=== PATIENT | female | born 2000 | race Caucasian/White ===

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

== ENCOUNTER → 2023-01-30 | Outpatient (CLI) | payer OTHER, SELFPAY ==
[2023-01-30 16:59] LABS: Hematocrit 36.3 % (37-47); Hemoglobin 11.5 g/dL (12.0-15.0); Mean Corp Hgb Conc 31.7 g/dL (32-36); Mean Corpuscular Hgb 27.1 pg (27.0-32.0); Mean Corpuscular Volume 85.4 fL (81-99); Platelet Count 363 K/mm3 (150-450); RBC Distribution Width CV 13.9 % (11.6-14.6); RBC Distribution Width SD 42.8 fl (35.1-43.9); Red Blood Count 4.25 M/mm3 (4.2-5.4); White Blood Count 11.4 K/mm3 (4.4-11.0)
[2023-01-30 17:18] LABS: Prothrombin Time (Protime)PT. 12.9 SECONDS (11.7-14.9)
[2023-01-30 17:19] LABS: Partial Thromboplast Time 27.6 Seconds (24.1-36.2)
== END | disposition home or self-care (01) ==
LOC: LAB 16:28
PROVIDERS: PCP Pediatrics; Referring Provider Otolaryngology; Visit Provider Otolaryngology
DX: Z01.818 Encounter for other preprocedural examination (principal)
CPT/HCPCS: 36415; 85027; 85610; 85730

== ENCOUNTER 2023-05-01 14:01 | Emergency (ER) | payer OTHER, SELFPAY ==
[2023-05-01 14:02] VITALS: BP 131/88; PULSE 81; RESP 16; TEMP 36.2; O2SAT 100
[2023-05-01 14:04] VITALS: BMI 34.7
--- NOTE | 2023-05-01 14:39 | EX.ED.VIS.PS ---
HPI HPI - Psych History of Present Illness Chief Complaint: Suicidal Narrative Narrative: 22-year-old female with history of depression and anxiety with suicidal thoughts and a plan to kill herself by overdosing on her anxiety medication. She states that she has been having more cutting behavior recently. She states she has been cutting on her right shoulder. She went to see her counselor her today and reported all these findings and she was sent to the ER. Patient states that life in general is stressful for her but she is recently having trouble with work and a break-up within the month with her significant other. No history of attempts. She does have history of SI in the past. [facility] Medical History ADHD Anxiety Depressive disorder Physical exam, pre-employment Home Medications sertraline 100 mg tablet 150 mg PO Q24H 05/01/23 [History Last Taken Unknown] Allergy/AdvReac Type Severity Reaction Status Date / Time Penicillins Allergy Rash Verified 05/01/23 14:02 Social History Smoking Status: Never smoker ROS ROS ED Constitutional Constitutional ED: Denies chills, fever(s) or sweats Eyes Eyes: Denies blurry vision or change in vision ENT ENT ED: Denies ear pain or sore throat Cardiovascular Cardiovascular: Denies chest pain, palpitations or racing heartbeat Respiratory/Chest Respiratory/Chest: Denies cough, dyspnea or sputum Gastrointestinal Gastrointestinal: Denies abdominal pain, constipation, diarrhea, nausea or vomiting Genitourinary Genitourinary ED: Denies dysuria, hematuria or urinary frequency Musculoskeletal Musculoskeletal: Denies arthralgias, myalgias or neck pain Integumentary Denies abscess, Abrasions or rash Neurologic Neurologic: Denies headache(s), paresthesias or weakness Psychiatric Psychiatric: Reports anxiety, depression, suicidal ideation and suicidal thoughts Endocrine Endocrinology: Denies polydipsia or polyuria EXAM Physical Exam Const Vital Signs: 05/01/23 14:02 05/01/23 15:01 05/01/23 18:00 Temperature 97.1 F L Temperature Source Temporal Pulse Rate 81 61 Respiratory Rate 16 18 18 Blood Pressure 131/88 H 144/87 H Blood Pressure Mean 102 106 Pulse Ox 100 99 Oxygen Delivery Method Room Air Room Air Room Air Positive well nourished General Appearance ED: RANJITH SHEN Reports moist mucous membranes normocephalic and atraumatic Eyes PERRL and EOMs intact bilaterally Resp normal respiratory effort and clear to auscultation bilaterally Auscultation: Negative for rales, rhonchi or wheezes Cardio Rate: regular rate Rhythm: regular rhythm Neuro oriented x3 and CN's II-XII intact bilaterally Psych cooperative, speech normal and activity/motor behavior normal Appearance: grossly normal Attitude: calm Activity / Motor Behavior: appropriate eye contact Speech: normal speech Thought Content: suicidality Attention / Concentration: attention grossly intact and concentration grossly intact Memory / Cognition: memory grossly intact Insight: poor MDM MDM MDM Narrative Medical decision making narrative: Patient presenting with suicidal ideation and a plan to kill herself by overdosing on her anxiety medications. Appropriate screening lab work will be obtained. rocket test fire worker will be consulted. Patient will likely benefit from inpatient care. Screening blood work was normal. CBC and BMP unremarkable. Serum hCG is negative. Drug screen positive for cannabinoids. COVID swab came back positive so a COVID PCR was sent and is also positive. The patient is completely asymptomatic of this. This does complicate her placement. Social work did see the patient and felt that she was not able to safety plan her. Given this we will look for other resources. Patient is medically clear from my standpoint. Patient will be signed out to the incoming ED physician for monitoring until placement can be achieved. Impression: 1. Suicidal ideation with plan 2. COVID-19 Lab Data Attestation: I reviewed the patient's lab results. Labs: Laboratory Results - last 24 hr 05/01/23 05/01/23 15:13 16:10 WBC 10.6 RBC 4.52 Hgb 12.2 Hct 39.6 MCV 87.6 MCH 27.0 MCHC 30.8 L RDW Std Deviation 45.1 H RDW Coeff of Seth 13.9 Plt Count 368 MPV 10.2 Immature Gran % (Auto) 0.400 Neut % (Auto) 69.6 Lymph % (Auto) 19.2 [place] % (Auto) 6.8 Eos % (Auto) 3.7 Baso % (Auto) 0.3 Absolute Neuts (auto) 7.4 Absolute Lymphs (auto) 2.04 Nucleated RBC % 0 Sodium 137 Potassium 3.9 Chloride 106 Carbon Dioxide 28.0 Anion Gap 3 L BUN 18 Creatinine 0.88 Est GFR (MDRD) Af Amer 104 Est GFR (MDRD) Non-Af 86 BUN/Creatinine Ratio 20.4 H Glucose 92 Calcium 9.1 Serum , Qual NEGATIVE Urine Opiates Screen NEGATIVE Urine Methadone Screen NEGATIVE Ur Barbiturates Screen NEGATIVE Ur Phencyclidine Scrn NEGATIVE Ur Amphetamines Screen NEGATIVE MDMA (Ecstasy) Screen NEGATIVE U Benzodiazepines Scrn NEGATIVE Urine Cocaine Screen NEGATIVE U Cannabinoids Screen POSITIVE H Ur Drug Screen Comment Ethyl Alcohol < 3.0 Discharge Plan Triage Chief Complaint: Suicidal ED Provider: Tiburcio Vasquez Dx/Rx/DC Orders Prescriptions: No Action sertraline 100 mg tablet 150 mg PO Q24H Patient Comments: TAKE 1 TABLET BY MOUTH ONCE DAILY FOR 90 DAYS TAKE WITH 50 MG DOSE FOR TOTAL OF 150MG DAILY Primary Care Provider: Zaki Lewis Referrals: Angela Hinton DO [Non-Staff] -
[2023-05-01 15:01] VITALS: RESP 18
[2023-05-01 15:21] LABS: Absolute Lymphocyte Count 2.04 X10^3/uL (0.83-4.51); Absolute Neutrophil Count 7.4 X10^3/uL (2.0-7.7); Basophil# 0.03 X10^3/uL; Basophil% 0.3 % (0-1); Eosinophil# 0.39 X10^3/uL; Eosinophils% 3.7 % (0-5); Hematocrit 39.6 % (37-47); Hemoglobin 12.2 g/dL (12.0-15.0); Lymphocyte # 2.04 X10^3/ul (0.83-4.51); Lymphocyte % 19.2 % (19-41); Mean Corp Hgb Conc 30.8 g/dL (32-36); Mean Corpuscular Volume 87.6 fL (81-99); Mean Platelet Vol. 10.2 fl (6.2-12.0); Monocyte# 0.72 X10^3/uL; Monocyte% 6.8 % (0-10); NRBC Flagged by Analyzer 0 % (0-5); Neutrophil # 7.38 X10^3/uL (2.7-7.7); Neutrophil % 69.6 % (47-70); Platelet Count 368 K/mm3 (150-450); RBC Distribution Width CV 13.9 % (11.6-14.6); RBC Distribution Width SD 45.1 fl (35.1-43.9); Red Blood Count 4.52 M/mm3 (4.2-5.4); White Blood Count 10.6 K/mm3 (4.4-11.0)
[2023-05-01 15:33] LABS: Anion Gap 3 (5-15); BUN 18 mg/dL (7-18); BUN/Creat Ratio 20.4 RATIO (10-20); Calcium,Total 9.1 mg/dL (8.5-10.1); Chloride 106 mmol/L (98-107); Creatinine, Serum 0.88 mg/dL (0.55-1.02); EST Glomerular Filtration Rate 86 mL/min (>60); Est Glom Filt Rate - Afr Amer 104 mL/min (>60); Glucose 92 mg/dL (74-106); Potassium 3.9 mmol/L (3.5-5.1); Sodium Level 137 mmol/L (136-145)
[2023-05-01 15:51] LABS: Alcohol, Blood (Medical)-Serum < 3.0 mg/dL
[2023-05-01 15:53] LABS: Internal QC Validated? YES +Cl - CLEAR BKGD; Pregnancy, Serum, hCG Quali. NEGATIVE Negative; Record Kit Lot#, Serum Preg. 667200
[2023-05-01 16:35] LABS: Amphetamine Urine VISTA NEGATIVE (<1000 ng/mL); Barbiturate Urine VISTA NEGATIVE (< 200 ng/mL); Benzodiazepine Urine VISTA NEGATIVE (< 200 ng/mL); Cocaine Urine VISTA NEGATIVE (< 300 ng/mL); Ecstacy Urine VISTA NEGATIVE (< 500 ng/mL); Methadone Urine VISTA NEGATIVE (< 300 ng/mL); PCP Urine VISTA NEGATIVE (< 25 ng/mL); THC Urine VISTA POSITIVE (< 50 ng/mL); Vista UDS pH Range 6
[2023-05-01 18:00] VITALS: BP 144/87; PULSE 61; RESP 18; O2SAT 99
--- NOTE | 2023-05-01 19:18 | CM.ED ---
Social Work Psychiatric Assessment Reason for consult: SI Informant(s): Patient, medical record Chief Complaint: SI with a plan, sent by mental health counselor Marital/Social History/Living Situation: Patient is a 22-year-old single female that resides her mother, mother?s and 18-year-old sister. Pt prefers her/they pronouns and their sexual orientation is homosexual. 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 Pt reports the desire for autism testing due to symptoms. Pt reports taking 150 mg Sertraline. Pt denies any prior psych placements. Pt sees a counselor, Khadijah at [facility]. Pt has history of self-harm in the form of cutting. Substance Abuse Hx: Pt denies any significant history of substance abuse but does report occasional marijuana use. Daily nicotine use. Abuse Issues/Trauma HX: Pt denies any abuse history. Pt reports the loss of her grandfather and spreading his ashes as traumatic. Risk to Self/Others: Pt reports SI which has been constant for the past week. Pt reports thoughts everyday all day regarding killing herself and methods. Pt reports plan to overdose on medication. Pt denies HI. Triggers/Stressors/Risk factors: Pt reports they recently had a breakup with their girlfriend. Pt has history of cutting. Coping Skills: Family, walking Support/Resources: Mother, counselor, friends Mental Status Exam: ?Pt is oriented x4 with good memory Appearance/General Behavior/Mood/Affect: Pt presents as depressed with flat affect. Pt reports fluctuating moods with sadness, anxious and irritable. Communication Pattern/Thought process: Pt communicates effectively. Pt does not present as having AVH or delusions. General Intellectual Functioning:?? Average Judgment/Insight: Pt presents with good judgment and insight Assessment: Patient presents at ED after mental health counselor sent them for SI. Patient reports SI constantly in the past week. Pt reports thinking about suicide all day and methods to use. Pt reports plan to overdose on medications. On a scale of 1-10 with 10 being pt is definitely going to harm self, patient reports an 8. Pt denies HI and AVH. Pt denies any previous attempts or hospitalizations. Pt reports anxiety, difficulty sleeping and fluctuating moods. Pt reports using weed occasionally and nicotine daily. Pt reports recent breakup with her girlfriend which pt reports as a trigger. Pt reports self-harm in the form of cutting, last done on Sunday. Pt reports superficial cut to their shoulder. Pt reports feeling unsafe with self at this time. Patient has tested positive for Covid but is asymptomatic. Pt denies known exposure to covid but works at a daycare. Patient has otherwise been medically cleared. Upon assessment, patient would benefit from inpatient psychiatric placement due to being a danger to self with SI/plan/intent. ED physician is in agreement with placement. Plan:. Patient to be referred for psychiatric placement for stabilization. Inés Watson CASH GRAIN FARMER, BENCH ASSEMBLER OPERATOR
--- NOTE | 2023-05-01 19:53 | CM.ED ---
Social Work Patient is asymptomatic but covid positive. SW called crisis to consult whether they have placed covid positive psychiatric patients recently. Crisis reports no recent covid positive placements. SW did call Violeta lovell, Juan Ramon Hayes and Gauri CLAYTON who all denied based on covid status. SW is not able to safety plan patient at this time and placement is still indicated, ED physician is in agreement and aware of status. SW faxed referral packet to crisis due to shift ending and pt still not referred. Plan: Crisis to continue seeking placement for covid positive placement. Inés Watson SENIOR MATERIALS ANALYST, FOOD COUNTER WORKER
--- NOTE | 2023-05-01 21:57 | ED.RN ---
[facility] calls and declines patient due to covid status.
[2023-05-01 22:00] VITALS: BP 132/65; PULSE 68; RESP 12; O2SAT 100
--- NOTE | 2023-05-01 22:34 | ED.RN ---
[facility] calls and declines patient based on covid status.
[2023-05-02 02:00] VITALS: BP 110/61; PULSE 72; RESP 12; O2SAT 100
[2023-05-02 06:00] VITALS: BP 121/74; PULSE 84; RESP 16; O2SAT 99
--- NOTE | 2023-05-02 09:10 | NURSING ---
[facility], [facility] AND CHARANR[facility] ACCEPTED, BUT AFTER 5 DAYS FROM BEING DIAGNOSED
[2023-05-02] MEDS: Sertraline 50 MG Tablet 150 MG PO (10:24)
[2023-05-02 14:00] VITALS: BP 132/77; PULSE 74; RESP 16; O2SAT 95
--- NOTE | 2023-05-02 14:34 | NURSING ---
[facility], CRISIS, CALLED. THE COLD ROLLING MACHINE SETTER WILL BE HERE TO SEE PATIENT AND DO AN ASSESSMENT
--- NOTE | 2023-05-02 14:34 | CM.ED ---
Social Work Spoke with Gordon at [facility] Crisis department regarding need for a 24 hour reassessment/update assessment. Gordon reports [facility] will be over to do this, but cannot give an exact time, due to the nature of community crisis events currently happening. Updated Gordon to patient's 24 hour timeframe of [id number]. -PADMA Zheng
[2023-05-02 18:00] VITALS: RESP 16
[2023-05-02 22:00] VITALS: RESP 15
[2023-05-03 02:00] VITALS: RESP 15
[2023-05-03 06:00] VITALS: RESP 15
[2023-05-03] MEDS: Sertraline 50 MG Tablet 150 MG PO (10:38)
[2023-05-03 15:26] VITALS: BP 128/79; PULSE 88; RESP 17; O2SAT 99
--- NOTE | 2023-05-03 18:20 | CM.ED ---
Social Work Patient awaiting psych placement in ED with positive covid status. Pt last re-evaluated by crisis 24 hours ago. SW in to complete 24 hour re-evaluation of patient for psychiatric needs. SW completed initial assessment on 05/01/2023, refer to this for full psychiatric evaluation. SW introduced self and role to patient. Pt's mom present in room and left for patient privacy. Pt present with positive mood and affect congruent to mood. Patient status largely the same as initial assessment. SW explained process and that psychiatric unit has reported they could possibly accept 5 days post-positive covid result. Pt remains asymptomatic and denies any medical concerns/symptoms. SW reviewed safety plan and possible services and aftercare to pair with safety plan. Pt indicated they have a safety plan with counselor and did not feel safe even with safety plan in place prior to ED visit. SW reviewed safety concerns and patient still indicates SI with plan. Pt is denying current intent and does report feeling more safe being at the hospital, knowing they are unable to harm themselves due to monitoring. On a scale of 1-10 with 10 being intent/plan to harm self, patient indicated a 6 which is a decrease from initial response which was an 8. Pt reports it is better but that they feel it is because they are at the ED to get help and does not have access to harm themselves. SW willing to develop safety plan if appropriate and patient is agreeable. Pt reports, I would not feel safe with myself at home. Pt is declining safety plan at this time. SW encouraged patient to notify staff if at any time they feel like they could be adequately safety planned and SW could review possible safety plan. Plan: SW to follow up tomorrow at 24 hour point or sooner if indicated. SW will continue to work on placement. Inés Watson PUMP ERECTOR, BUDGET ANALYST
--- NOTE | 2023-05-03 20:28 | CM.ED ---
Social Work SW called several facilities to find out if a new covid test is done, would that lengthen the 5 days post-screening period. No facilities could say exactly but did report they could review with management in the AM. [facility] indicated they could have physician review patient information tomorrow in anticipation of 5-day status. [facility] also reports they do not have enough space today to close off an area for covid but it could also be reviewed tomorrow. SW will follow up with [facility] and other facilities tomorrow regarding 5 day policy. Inés Watson BAND DIRECTOR, CARTON MAKING MACHINIST
[2023-05-03 20:37] VITALS: BP 149/74; PULSE 64; RESP 16; TEMP 36.6; O2SAT 98
[2023-05-04] VITALS (7 sets, daily range): BP systolic 124–140; BP diastolic 62–76; PULSE 62–80; RESP 14–16; O2SAT 96–98
[2023-05-04] MEDS: Sertraline 50 MG Tablet 150 MG PO (11:17)
--- NOTE | 2023-05-04 15:04 | CM.ED ---
Addendum entered by Inés Watson 05/04/23 20:04: YOUNG additionally spoke with [facility] liaison and intake regarding patient and they will not review until 5 days post-positive. [facility] also will not review until 5-10 days post positive screen. Inés DIEZ, VIDEO AND SOUND RECORDER Original Note: Social Work SW faxed referral to [facility] and [facility] for review. Both called and stated doctor would not review for placement until 5 day jarvis and to refax after it has been 5 days post-covid testing. [facility] advised to refax tomorrow and that case had been reviewed with management whether early review could be considered. Inés DIEZ, VIDEO AND SOUND RECORDER
--- NOTE | 2023-05-04 19:25 | CM.ED ---
Social Work Patient awaiting psych placement in ED with positive covid status. Pt last re-evaluated by SW 24 hours ago. SW in to complete 24 hour re-evaluation of patient for psychiatric needs. SW completed initial assessment on 05/01/2023, refer to this for full psychiatric evaluation. SW introduced self and role to patient. Pt's mom present in room and left for patient privacy. Pt present with positive mood and affect congruent to mood. Patient status largely the same as initial assessment. SW explained process and that psychiatric unit has reported they could possibly accept 5 days post-positive covid result. Pt remains asymptomatic and denies any medical concerns/symptoms. SW reviewed safety planning once again with patient. Pt again indicated safety plan with counselor already in place and did not feel safe. SW reviewed safety concerns and patient still indicates SI with plan. On a scale of 1-10 with 10 being intent/plan to harm self, patient indicated a 6 this re-eval and during previous re-eval but in initial psych assessment was an 8. Pt reports feeling like they need a medication review as they have been on sertraline for several months with continual increases in dosage and now at 150mg without improvement. Pt reports trying Wellbutrin in the past which gave patient the energy to . Pt reports more energy but increased suicidality with Wellbutrin. Pt feels fearful of any medication changes without close monitoring due to intense suicidal thoughts with previous med change and already feeling suicidal. SW willing to develop safety plan if appropriate and patient is agreeable due to patient's willingness to seek help when suicidal. Pt is declining safety plan at this time. SW encouraged patient to notify staff if at any time they feel like they could be adequately safety planned and SW could review possible safety plan. Plan: SW to follow up tomorrow at 24 hour point or sooner if indicated. SW will continue to work on placement. Inés Watson MERCHANT PATROLLER, HELPER METAL HANGING
[2023-05-05 09:00] VITALS: BP 126/78; PULSE 64; RESP 14; O2SAT 98
[2023-05-05] MEDS: Sertraline 50 MG Tablet 150 MG PO (11:52)
[2023-05-05 15:11] VITALS: BP 126/65; PULSE 62; RESP 16; O2SAT 99
--- NOTE | 2023-05-05 17:37 | CM.ED ---
Social Work Pt accepted to [facility] by Dr. Lassiter. Nurse to nurse [phone] and pink slip faxed. SW notified staff and patient. ETA 7:30 for transport. Inés Watson GLASS POLISHER, PRIMER BOXER
[2023-05-05 19:20] VITALS: BP 130/76; PULSE 64; RESP 14; TEMP 36.4; O2SAT 99
== END 2023-05-05 19:21 ==
PROVIDERS: Emergency Provider Student in an Organized Health Care Education/Training Program; PCP Student in an Organized Health Care Education/Training Program; Visit Provider Student in an Organized Health Care Education/Training Program
DX: U07.1 COVID-19 (principal); R45.851 Suicidal ideations; F41.9 Anxiety disorder, unspecified; F32.A Depression, unspecified; Z79.899 Other long term (current) drug therapy
CPT/HCPCS: 80048; 80307; 82077; 84703; 85025; 87635; 87811; 99285

== ENCOUNTER 2023-07-17 19:17 | Emergency (ER) | payer OTHER, SELFPAY ==
[2023-07-17 19:18] VITALS: BP 132/81; PULSE 87; RESP 16; TEMP 35.8; O2SAT 98; BMI 35.3
--- NOTE | 2023-07-17 19:56 | EX.ED.VIS.PS ---
HPI HPI - Psych History of Present Illness Chief Complaint: Suicidal Narrative Narrative: 22-year-old female past medical history of depression and anxiety, presents because she feels like she needs to be evaluated and sent to a psychiatric facility. Before April of last year, approximately 2 months ago, she had never been admitted. However, she states she went to [facility] because she was having suicidal ideation with plan to overdose. That is the reason why she presents to the emergency department today. She states that she follows up with the counseling center, and her counselor she has been having increasing depression. She states that she is having increasing thoughts of suicide by overdosing on her medications. Additionally, she states that she has been noncompliant with her medications recently because she just does not take them. She endorses mild insomnia, but no change in appetite. PFSH PFSH Medical History ADHD Anxiety Asthma Depressive disorder Physical exam, pre-employment Smoker Home Medications sertraline 100 mg tablet 150 mg PO Q24H 05/01/23 [History Last Taken Unknown] aripiprazole 10 mg tablet 5 mg PO DAILY 07/17/23 [History Last Taken Unknown] mirtazapine 15 mg tablet 15 mg PO .PRNQHS 07/17/23 [History Last Taken Unknown] Allergy/AdvReac Type Severity Reaction Status Date / Time Penicillins Allergy Rash Verified 07/17/23 19:18 Surgical History Hx of tonsillectomy Social History Smoking Status: Current every day smoker tobacco type: e-cigarettes ROS ROS ED ROS Narrative Constitutional: No fever, no chills. HEENT: No sore throat. No neck pain. No loss of vision. No rhinorrhea. Cardiovascular: No chest pain. No palpitations. No pedal edema. Respiratory: No cough, no shortness of breath. Abdominal: No abdominal pain. No nausea. No vomiting. Genitourinary: No dysuria. No hematuria. Musculoskeletal: No myalgias. No arthralgias. Neurologic: No headaches. No dizziness. No lightheadedness. Skin: No rash. No change in color. Psychiatric: Positive depression and anxiety. Thoughts of suicide and overdosing on psychiatric medications. EXAM Physical Exam Narrative Exam Narrative: Afebrile. Vital signs noted. HEENT: Normocephalic. Atraumatic. PERRL, EOMI. Neck soft and supple. No point tenderness or step off. Cardiovascular: Regular rate and rhythm. No murmurs, rubs, or gallops appreciated. Respiratory: No tachypnea. Lungs clear to auscultation bilaterally. Gastrointestinal: Abdomen soft, nontender, with normoactive bowel sounds. No rebound or guarding. Neurological: Awake. Alert. Nonfocal, nonlateralizing. Skin: No rash. Normal color. No pallor. Musculoskeletal: No pedal edema. Full range of motion extremities. Psychiatric: Positive suicidal ideation with plans on overdosing on medication. No active hallucinations. Mildly flat affect. Const Vital Signs: 07/17/23 19:18 07/17/23 21:17 Temperature 96.4 F L Temperature Source Temporal Pulse Rate 87 Respiratory Rate 16 16 Blood Pressure 132/81 H Blood Pressure Mean 98 Pulse Ox 98 97 Oxygen Delivery Method Room Air Room Air MDM MDM MDM Narrative Medical decision making narrative: Medical clearance labs will be obtained. Concern is for suicidal ideation with plan to overdose. I reviewed her laboratory work and she has slightly elevated white count of 13.0 which I think is nonspecific, hemoglobin stable at 11.4, hematocrit 35.8. Platelet count is normal at 343. CMP is significant for chloride of 108, but is otherwise unremarkable except for BUN of 22 and normal creatinine of 0.88. Glucose appropriately elevated at 95. Serum test is negative. Urine for drugs of abuse is negative and ethyl alcohol is negative. At this point in time, I feel she is medically cleared for evaluation by crisis. Should they require placement, any other additional test can be added on including EKG. Disposition is pending crisis evaluation. Patient is in stable condition. She will be signed out to the overnight physician as she awaits her evaluation and final disposition. History & Record Review Discussion w/independent historian: Patient Additional record(s) reviewed:: Prior ED visit Lab Data Attestation: I reviewed the patient's lab results. Labs: Laboratory Results - last 24 hr 07/17/23 07/17/23 19:56 20:16 WBC 13.0 H RBC 4.22 Hgb 11.4 L Hct 35.8 L MCV 84.8 MCH 27.0 MCHC 31.8 L RDW Std Deviation 42.8 RDW Coeff of Seth 13.9 Plt Count 343 MPV 10.3 Immature Gran % (Auto) 0.400 Neut % (Auto) 72.8 H Lymph % (Auto) 19.2 [place] % (Auto) 6.4 Eos % (Auto) 1.0 Baso % (Auto) 0.2 Absolute Neuts (auto) 9.5 H Absolute Lymphs (auto) 2.50 Nucleated RBC % 0 Sodium 137 Potassium 3.8 Chloride 108 H Carbon Dioxide 23.0 Anion Gap 6 BUN 22 H Creatinine 0.88 Estim Creat Clear Calc 133.87 Est GFR (MDRD) Af Amer 105 Est GFR (MDRD) Non-Af 87 BUN/Creatinine Ratio 25.1 H Glucose 95 Calcium 9.1 Total Bilirubin 0.20 AST 15 ALT 21 Alkaline Phosphatase 94 Total Protein 7.6 Albumin 3.6 Globulin 4.0 Albumin/Globulin Ratio 0.9 Serum , Qual NEGATIVE Urine Opiates Screen NEGATIVE Urine Methadone Screen NEGATIVE Ur Barbiturates Screen NEGATIVE Ur Phencyclidine Scrn NEGATIVE Ur Amphetamines Screen NEGATIVE MDMA (Ecstasy) Screen NEGATIVE U Benzodiazepines Scrn NEGATIVE Urine Cocaine Screen NEGATIVE U Cannabinoids Screen NEGATIVE Ur Drug Screen Comment Ethyl Alcohol < 3.0 Discharge Plan Triage Chief Complaint: Suicidal ED Provider: Armando Rodrigues Dx/Rx/DC Orders Clinical Impression: Suicidal ideation, Anxiety, Depression Prescriptions: No Action sertraline 100 mg tablet 150 mg PO Q24H Patient Comments: TAKE 1 TABLET BY MOUTH ONCE DAILY FOR 90 DAYS TAKE WITH 50 MG DOSE FOR TOTAL OF 150MG DAILY aripiprazole 10 mg tablet 5 mg PO DAILY Patient Comments: TAKE 1 TABLET BY MOUTH EVERY DAY mirtazapine 15 mg tablet 15 mg PO .[facility] Primary Care Provider: Zaki Lewis Referrals: Zaki Lewis DO [Primary Care Provider] -
[2023-07-17 20:27] LABS: Absolute Neutrophil Count 9.5 X10^3/uL (2.0-7.7); Basophil# 0.03 X10^3/uL; Basophil% 0.2 % (0-1); Eosinophil# 0.13 X10^3/uL; Hematocrit 35.8 % (37-47); Hemoglobin 11.4 g/dL (12.0-15.0); Lymphocyte % 19.2 % (19-41); Mean Corp Hgb Conc 31.8 g/dL (32-36); Mean Corpuscular Volume 84.8 fL (81-99); Mean Platelet Vol. 10.3 fl (6.2-12.0); Monocyte# 0.83 X10^3/uL; Monocyte% 6.4 % (0-10); NRBC Flagged by Analyzer 0 % (0-5); Neutrophil # 9.48 X10^3/uL (2.7-7.7); Neutrophil % 72.8 % (47-70); Platelet Count 343 K/mm3 (150-450); RBC Distribution Width CV 13.9 % (11.6-14.6); RBC Distribution Width SD 42.8 fl (35.1-43.9); Red Blood Count 4.22 M/mm3 (4.2-5.4)
--- OUTSIDE RECORDS SUMMARY | 2023-07-17 20:40 | XMS RPT_ITS | CCD ---
Author Name Unknown Address [email or web address] [place] [address] Organization [facility] Care Team Providers Care Manganese Heater Name Role Phone Unavailable Primary Care Provider UnavailMónica Chapa Primary Care Provid er LATASHA OLIVEROS, DR BURRELL Primary Care Physician [phone] Unavailable Primary Care Provider Ashanti Bustamante DO Primary Care Provider [phone] MALISSA VILLALTA, DR KELLI Downs Attending Mauri LEWIS DO, DR BURRELL Primary Care Unavailable LATASHA OLIVEROS, DR BURRELL Primary Care Unavailable IGOR FERRARI MD Attending Unavailable LATASHA OLIVEROS, DR BURRELL Attending Unavailable LATASHA OLIVEROS, DR BURRELL Primary Care Unavailable ASHANTI LEWIS Primary Care Unavailable MAYNOR CALLES Referring Unavailable ASHANTI LEWIS Primary Care Unavailable ASHANTI LEWIS Primary Care Unavailable ASHANTI LEWIS Primary Care Unavailable ASHANTI LEWIS Primary Care Unavailable ASHANTI LEWIS Primary Care Unavailable ASHANTI LEWIS Primary Care Unavailable ASHANTI LEWIS Primary Care Unavailable ROBIN AKUR Referring Unavailable Allergies Allergy Classification Reported Allergen(s) Allergy Type Date of Onset Reaction(s) Facility (14 sources) Dextromethorphan ; Translations: [DEXTROMETHORPHA N HBR] Drug Allergy 7 Swelling [facility] Work Phone: (8 sources) Penicillins; Translations: [penicillins] Drug Intolerance 5 Rash [facility] Work Phone: (10 sources) Penicillins Drug Intolerance 11-03-201 5 [facility] Work Phone: Medications Current Medications Medication Drug Class(es) Dates Sig (Normalized) Sig (Original) azithromycin 250 mg oral tablet (1 source) Macrolide Antimicrobial Start: 06-07-2022 End: 06-12-2022 take 2 tablets by mouth once daily, then take 1 tablet by mouth once daily azithromycin (ZITHROMAX) 250 mg tablet Take 2 tablets by mouth once daily for 1 day, THEN 1 tablet once daily for 4 days. 6 tablet 0 06/07/2022 06/12/2022 Active Completed/Discontinued Medications Medication Drug Class(es) Dates Sig (Normalized) Sig (Original) 24 hr amphetamine aspartate 6.25 mg / amphetamine sulfate 6.25 mg / dextroamphetamine saccharate 6.25 mg / dextroamphetamine sulfate 6.25 mg extended release oral capsule (20 sources) Central Nervous System Stimulant take 1 tablet by mouth once daily dextroamphetamine -amphetamine (ADDERALL) 5 mg tablet Take 5 mg by mouth once daily. 0 Active Problems Active Problems Problem Classification Problem Date Documented Date Episodic/Chronic Acute and chronic tonsillitis (4 sources) Hypertrophy of tonsils; Translations: [Chronic tonsillitis] Onset: 02-06-2023 08-01-2022 Chronic Anxiety disorders (8 sources) Obsessive-compulsive disorder; Translations: [Social phobia] 01-17-2022 Chronic Attention-deficit, conduct, and disruptive behavior disorders (4 sources) Attention deficit hyperactivity disorder 01-17-2022 Chronic Fluid and electrolyte disorders (1 source) Dehydration; Translations: [Dehydration] Onset: 02-13-2023 Episodic Inflammation; infection of eye (except that caused by tuberculosis or sexually transmitteddisease) (1 source) Acute conjunctivitis of bilateral eyes; Translations: [Unspecified acute conjunctivitis, bilateral] Episodic Mood disorders (2 sources) Recurrent major depressive episodes, moderate 08-01-2022 Chronic Noninfectious gastroenteritis (1 source) Gastroenteritis; Translations: [Noninfective gastroenteritis and colitis, unspecified] Episodic Other infections; including parasitic (2 sources) History of Lyme disease 12-12-2022 Episodic Other injuries and conditions due to external causes (1 source) Injury of left leg; Translations: [Unspecified injury of left lower leg, initial encounter] Episodic Other screening for suspected conditions (not mental disorders or infectious disease) (2 sources) Disease suspected 08-01-2022 Episodic Other upper respiratory infections (1 source) Bacterial sinusitis; Translations: [Chronic sinusitis, unspecified] Chronic Otitis media and related conditions (1 source) Acute left otitis media; Translations: [Otitis media, unspecified, left ear] Episodic Residual codes; unclassified (1 source) History of clinical finding in subject; Translations: [Personal history of other specified conditions] Episodic Spondylosis; intervertebral disc disorders; other back problems (3 sources) Backache; Translations: [Dorsalgia, unspecified] Episodic Suicide and intentional self-inflicted injury (2 sources) Suicidal thoughts 10-10-2022 Episodic Unclassified (2 sources) Add - dosing instruction fragment (qualifier value) 12-22-2014 Viral infection (2 sources) Viral disease; Translations: [Viral infection, unspecified] Episodic Past or Other Problems Problem Classification Problem Date Documented Da te Episodic/Chronic Other upper respiratory infections (7 sources) Upper respiratory infection; Translations: [Acute upper respiratory infection, unspecified] Onset: 05-30-2022 Episodic Results Test Name Value Interpretation Reference Range Facil ity Vital Signs Date Time Vital Sign Value Performing Clinician Facility 06-05-2023 18:06-0500 Body temperature 97.81 [degF] Maynor Calles APRN.CNP Work Phone: [facility] 06-05-2023 18:06-0500 Body weight 109.77 kg Maynor Calles APRN.CNP Work Phone: [facility] 06-05-2023 18:06-0500 Diastolic blood pressure 68 mm[Hg] Maynor Calles APRN.GUN STRIPER Work Phone: [facility] 06-05-2023 18:06-0500 Heart rate 96 /min Maynor Calles APRN.GUN STRIPER Work Phone: [facility] 06-05-2023 18:06-0500 Respiratory rate 16 /min Maynor Calles APRN.CNP Work Phone: [facility] 06-05-2023 18:06-0500 SaO2% (BldA) [Mass fraction] 100 % Maynor Calles APRN.GUN STRIPER Work Phone: [facility] 06-05-2023 18:06-0500 Systolic blood pressure 122 mm[Hg] Maynor Stevan VENEER JOINTER RETURNER.GUN STRIPER Work Phone: [facility] 02-13-2023 21:56-0400 Body temperature 98.06 [degF] DR KELLI LEONARDO MD [facility] 02-13-2023 21:56-0400 Heart rate 63 /min DR KELLI LEONARDO MD [facility] 02-13-2023 19:02-0400 Body temperature 98.06 [degF] DR KELLI LEONARDO MD [facility] 02-13-2023 19:02-0400 Diastolic Blood Pressure Non-Invasive [address] KELLI LEONARDO MD [facility] 02-13-2023 19:02-0400 Heart rate 84 /min DR KELLI LEONARDO MD [facility] 02-13-2023 19:02-0400 Respiratory rate 18 /min DR KELLI LEONARDO MD [facility] 02-13-2023 19:02-0400 Systolic Blood Pressure Non-Invasive [address] KELLI LEONARDO MD [facility] 12-07-2022 17:09-0400 Body temperature 97.81 [degF] Preethi Nagy V[employer]ER JOINTER RETURNER.[employer]IPER Work Phone: [facility] 12-07-2022 17:09-0400 Body weight 106.87 kg Preethi Nagy [employer]ER [employer]INTER RETURNER.[employer]ER Work Phone: [facility] 12-07-2022 17:09-0400 Diastolic blood pressure 68 mm[Hg] Preethi Nagy VENEER JOINTER RETURNER.[employer]IPER Work Phone: [facility] 12-07-2022 17:09-0400 Heart rate 90 /min Preethi Nagy [employer]INTER RETURNER.[employer]ER Work Phone: [facility] 12-07-2022 17:09-0400 Respiratory rate 18 /min Preethi Nagy V[employer]INTER RETURNER.[employer]ER Work Phone: [facility] 12-07-2022 17:09-0400 SaO2% (BldA) [Mass fraction] 98 % Preethi Nagy [employer]ER [employer]INTER RETURNER.[employer]ER Work Phone: [facility] 12-07-2022 17:09-0400 Systolic blood pressure 122 mm[Hg] Preethi Nagy VENEER JOINTER RETURNER.[employer]IPER Work Phone: [facility] 08-29-2022 19:11-0500 Body temperature 100.09 [degF] Maynor Stevan [employer] JOINTER RETURNER.[employer]ER Work Phone: [facility] 08-29-2022 19:11-0500 Body weight 104.78 kg Maynor Stevan [employer]INTER RETURNER.[employer]IPER Work Phone: [facility] 08-29-2022 19:11-0500 Diastolic blood pressure 72 mm[Hg] Maynor Stevan V[employer]ER JOINTER RETURNER.[employer]IPER Work Phone: [facility] 08-29-2022 19:11-0500 Heart rate 70 /min Maynor Stevan [employer]ER JOINTER RETURNER.[employer]ER Work Phone: [facility] 08-29-2022 19:11-0500 Respiratory rate 16 /min Maynor Stevan [employer]ER JOINTER RETURNER.[employer]ER Work Phone: [facility] 08-29-2022 19:11-0500 SaO2% (BldA) [Mass fraction] 100 % Maynor Stevan [employer]ER JOINTER RETURNER.[employer]ER Work Phone: [facility] 08-29-2022 19:11-0500 Systolic blood pressure 124 mm[Hg] Maynor Stevan VENEER JOINTER RETURNER.[employer]ER Work Phone: [facility] 06-21-2022 10:18-0500 Body temperature 98.1 [degF] Maynor Stevan V[employer]INTER RETURNER.[employer]ER Work Phone: [facility] 06-21-2022 10:18-0500 Body weight 101.52 kg Maynor Stevan [employer]ER JOINTER RETURNER.[employer]IPER Work Phone: [facility] 06-21-2022 10:18-0500 Diastolic blood pressure 80 mm[Hg] Maynor Stevan V[employer]ER JOINTER RETURNER.[employer]ER Work Phone: [facility] 06-21-2022 10:18-0500 Heart rate 90 /min Maynor Stevan V[employer]ER JOINTER RETURNER.[employer]ER Work Phone: [facility] 06-21-2022 10:18-0500 Respiratory rate 18 /min Maynor Stevan V[employer] JOINTER RETURNER.[employer]IPER Work Phone: [facility] 06-21-2022 10:18-0500 SaO2% (BldA) [Mass fraction] 97 % Maynor Stevan VENEER JOINTER RETURNER.[employer]IPER Work Phone: [facility] 06-21-2022 10:18-0500 Systolic blood pressure 112 mm[Hg] Maynor Stevan VENEER JOINTER RETURNER.GUN STRIPER Work Phone: [facility] 06-07-2022 19:19-0500 Body temperature 97.7 [degF] Preethi Nagy VENEER JOINTER RETURNER.[employer]IPER Work Phone: [facility] 06-07-2022 19:19-0500 Body weight 103.06 kg Preethi Nagy VENEER JOINTER RETURNER.[employer]ER Work Phone: [facility] 06-07-2022 19:19-0500 Diastolic blood pressure 82 mm[Hg] Preethi Nagy VENEER JOINTER RETURNER.[employer]IPER Work Phone: [facility] 06-07-2022 19:19-0500 Heart rate 80 /min Preethi Nagy V[employer]ER JOINTER RETURNER.G[employer]IPER Work Phone: [facility] 06-07-2022 19:19-0500 Respiratory rate 21 /min Preethi Nagy VENEER JOINTER RETURNER.G[employer] STRIPER Work Phone: [facility] 06-07-2022 19:19-0500 SaO2% (BldA) [Mass fraction] 97 % Preethi Nagy V[employer]ER JOINTER RETURNER.G[employer]IPER Work Phone: [facility] 06-07-2022 19:19-0500 Systolic blood pressure 128 mm[Hg] Preethi Nagy VENEER JOINTER RETURNER.GUN STRIPER Work Phone: [facility] 05-11-2022 18:20-0500 Body temperature 97 [degF] Preethi Nagy VENEER JOINTER RETURNER.[employer]IPER Work Phone: [facility] 05-11-2022 18:20-0500 Body weight 101.97 kg Preethi Nagy VENEER JOINTER RETURNER.[employer]ER Work Phone: [facility] 05-11-2022 18:20-0500 Diastolic blood pressure 80 mm[Hg] Preethi Nagy VENEER JOINTER RETURNER.G[employer]IPER Work Phone: [facility] 05-11-2022 18:20-0500 Heart rate 98 /min Preethi Nagy VENEER JOINTER RETURNER.G[employer] STRIPER Work Phone: [facility] 05-11-2022 18:20-0500 Respiratory rate 16 /min Preethi Nagy VENEER JOINTER RETURNER.G[employer]IPER Work Phone: [facility] 05-11-2022 18:20-0500 SaO2% (BldA) [Mass fraction] 100 % Preethi Nagy VENEER JOINTER RETURNER.G[employer]IPER Work Phone: [facility] 05-11-2022 18:20-0500 Systolic blood pressure 124 mm[Hg] Preethi Nagy VENEER JOINTER RETURNER.GUN STRIPER Work Phone: [facility] 05-05-2022 16:33-0500 Body temperature 98.71 [degF] Luli Praisler-Wood VENEER JOINTER RETURNER.GUN STRIPER Work Phone: [facility] 05-05-2022 16:33-0500 Body weight 103.6 kg Llui Praisler-Wood VENEER JOINTER RETURNER.GUN [employer]IPER Work Phone: [facility] 05-05-2022 16:33-0500 Diastolic blood pressure 74 mm[Hg] Luli Praisler-Wood VENEER JOINTER RETURNER.GUN STRIPER Work Phone: [facility] 05-05-2022 16:33-0500 Heart rate 103 /min Luli Praisler-Wood VENEER JOINTER RETURNER.GUN [employer]IPER Work Phone: [facility] 05-05-2022 16:33-0500 Respiratory rate 16 /min Luli Kincaid-Wood VENEER JOINTER RETURNER.GUN STRIPER Work Phone: [facility] 05-05-2022 16:33-0500 SaO2% (BldA) [Mass fraction] 97 % Luli Kincaid-Wood VENEER JOINTER RETURNER.GUN [employer]IPER Work Phone: [facility] 05-05-2022 16:33-0500 Systolic blood pressure 116 mm[Hg] Luli Almazanler-Wood VENEER JOINTER RETURNER.GUN [employer]IPER Work Phone: [facility] 03-06-2022 18:21-0400 Body temperature 98.4 [degF] Darius Miles VENEER JOINTER RETURNER.GUN [employer]IPER Work Phone: [facility] 03-06-2022 18:21-0400 Body weight 103.96 kg Darius Miles VENEER JOINTER RETURNER.G[employer]IPER Work Phone: [facility] 03-06-2022 18:21-0400 Diastolic blood pressure 78 mm[Hg] Darius Pendlebury VENEER JOINTER RETURNER.GUN [employer]IPER Work Phone: [facility] 03-06-2022 18:21-0400 Heart rate 83 /min Darius Miles VENEER JOINTER RETURNER.G[employer]IPER Work Phone: [facility] 03-06-2022 18:21-0400 Respiratory rate 21 /min Darius Annalebury VENEER JOINTER RETURNER.GUN [employer]IPER Work Phone: [facility] 03-06-2022 18:21-0400 SaO2% (BldA) [Mass fraction] 98 % Darius Castilloledick VENEER JOINTER RETURNER.GUN [employer]IPER Work Phone: [facility] 03-06-2022 18:21-0400 Systolic blood pressure 122 mm[Hg] Darius Pendlebury VENEER JOINTER RETURNER.GUN STRIPER Work Phone: [facility] 01-10-2022 11:36-0400 Body temperature 97.39 [degF] Maynor Calles VENEER JOINTER RETURNER.[employer]ER Work Phone: [facility] 01-10-2022 11:36-0400 Body weight 101.88 kg Maynor Stevan [employer]ER JOINTER RETURNER.[employer]IPER Work Phone: [facility] 01-10-2022 11:36-0400 Diastolic blood pressure 72 mm[Hg] Maynor Stevan VENEER JOINTER RETURNER.G[employer]IPER Work Phone: [facility] 01-10-2022 11:36-0400 Heart rate 105 /min Maynor Stevan VENEER JOINTER RETURNER.[employer]ER Work Phone: [facility] 01-10-2022 11:36-0400 Respiratory rate 18 /min Maynor Stevan VENEER JOINTER RETURNER.G[employer]ER Work Phone: [facility] 01-10-2022 11:36-0400 SaO2% (BldA) [Mass fraction] 97 % Maynor Stevan VENEER JOINTER RETURNER.G[employer]IPER Work Phone: [facility] 01-10-2022 11:36-0400 Systolic blood pressure 110 mm[Hg] Maynor Stevan VENEER JOINTER RETURNER.G[employer]IPER Work Phone: [facility] 09-25-2021 13:16-0400 Body temperature 98.49 [degF] Luli Praisler-Wood VENEER JOINTER RETURNER.GUN STRIPER Work Phone: [facility] 09-25-2021 13:16-0400 Body weight 99.43 kg Luli Praisler-Wood VENEER JOINTER RETURNER.G[employer]IPER Work Phone: [facility] 09-25-2021 13:16-0400 Diastolic blood pressure 78 mm[Hg] Luli Praisler-Wood VENEER JOINTER RETURNER.G[employer]IPER Work Phone: [facility] 09-25-2021 13:16-0400 Heart rate 92 /min Luli Praisler-Wood VENEER JOINTER RETURNER.G[employer]IPER Work Phone: [facility] 09-25-2021 13:16-0400 Respiratory rate 18 /min Luli Praisler-Wood VENEER JOINTER RETURNER.GUN STRIPER Work Phone: [facility] 09-25-2021 13:16-0400 SaO2% (BldA) [Mass fraction] 98 % Luli Praisler-Wood VENEER JOINTER RETURNER.G[employer]IPER Work Phone: [facility] 09-25-2021 13:16-0400 Systolic blood pressure 122 mm[Hg] Luli Morrow APRN.GUN STRIPER Work Phone: [facility] 09-20-2021 13:38-0400 Body temperature 98.1 [degF] Darius Miles VENEER JOINTER RETURNER.[employer]ER Work Phone: [facility] 09-20-2021 13:38-0400 Body weight 100.7 kg Darius Miles VENEER JOINTER RETURNER.G[employer]ER Work Phone: [facility] 09-20-2021 13:38-0400 Diastolic blood pressure 68 mm[Hg] Darius Miles VENEER JOINTER RETURNER.G[employer]IPER Work Phone: [facility] 09-20-2021 13:38-0400 Heart rate 118 /min Darius Miles VENEER JOINTER RETURNER.G[employer]ER Work Phone: [facility] 09-20-2021 13:38-0400 Respiratory rate 18 /min Darius Miles VENEER JOINTER RETURNER.G[employer]IPER Work Phone: [facility] 09-20-2021 13:38-0400 SaO2% (BldA) [Mass fraction] 99 % Darius Miles VENEER JOINTER RETURNER.G[employer]IPER Work Phone: [facility] 09-20-2021 13:38-0400 Systolic blood pressure 110 mm[Hg] Darius Miles VENEER JOINTER RETURNER.GUN [employer]IPER Work Phone: [facility] Encounters Encounter Date Encounter Type Care Provider Facility Start: 06-05-2023 End: 06-05-2023 ambulatory ASHANTI LEWIS Facility:[facility] Start: 06-05-2023 End: 06-05-2023 Patient encounter procedure Maynor Calles APRN.GUN STRIPER Work Phone: [facility] Procedures Date Procedure Procedure Detail Performing Clinician Start: 08-29-2022 Radex ankle complete minimum 3 views Maynor Calles APRN.GUN STRIPER Work Phone: Start: 06-07-2022 STREP A MOLECULAR (POC) Luli Morrow APRN.GUN STRIPER Work Phone: Start: 05-05-2022 STREP A MOLECULAR (POC) Luli Morrow VENEER JOINTER RETURNER.[employer]IPER Work Phone: Start: 03-06-2022 STREP A MOLECULAR (POC) Darius Miles VENEER JOINTER RETURNER.G[employer]IPER Work Phone: Start: 01-10-2022 End: 01-10-2022 STREP A MOLECULAR (POC) [facility] Provider Start: 09-25-2021 STREP A MOLECULAR (POC) Luli Morrow VENEER JOINTER RETURNER.G[employer]IPER Work Phone: None (qualifier value) DR FRANCISCO LEWIS DO Plan of Treatment Date Care Activity Detail Author Start: 01-08-2024 Urine microalbumin profile DTaP,Tdap,Td Vaccine (7 - Td or Tdap) [facility] Start: 02-23-2023 Covid-19 Vaccine ( season) Covid-19 Vaccine ( season) [facility] Start: 02-23-2023 Influenza vaccination Influenza Vaccine (#1) [facility] Start: 10-24-2022 COVID-19 VACCINE (3 - Booster for Moderna series) COVID-19 VACCINE (3 - Booster for Moderna series) [facility] Start: 06-25-2022 DEPRESSION ASSESSMENT DEPRESSION ASSESSMENT [facility] Start: 05-05-2022 End: 05-19-2022 Influenza virus A and B RNA and SARS-CoV-2 (COVID-19) N gene panel - Respiratory specimen by WILDER with probe detection COVID WITH FLUA+B, ROUTINE Microbiology Routine Viral URI with cough Expected: 05/05/2022, Expires: 05/19/2022 [facility] Work Phone: Immunizations Immunization Date Immunization Notes Care Provider Ny benitez 08-29-2022 COVID-19, mRNA, LNP- S, PF, 100 mcg or 50 mcg dose; Translations: [Moderna COVID-19 Vaccine] IGOR FERRARI MD [facility] 08-01-2022 COVID-19, mRNA, LNP- S, PF, 100 mcg or 50 mcg dose; Translations: [Moderna COVID-19 Vaccine] IGOR FERRARI MD [facility] 04-11-2022 influenza, injectabl e, quadrivalent, contains preservative; Translations: [Fluarix PF Quadrivalent ] DR ASHANTI LEWIS DO [facility] 04-11-2022 influenza virus vacc ine, unspecified formulation Maynor Calles APRN.CNP Work Phone: [facility] 02-17-2020 meningococcal polysaccharide (groups A, C, Y and W-135) diphtheria toxoid conjugate vaccine (MCV4P) DR ASHANTI LEWIS DO [facility] 02-19-2017 hepatitis A vaccine, pediatric dosage, unspecified formulation DR ASHANTI LEWIS DO [facility] 08-22-2016 hepatitis A vaccine, pediatric dosage, unspecified formulation DR ASHANTI LEWIS DO [facility] 08-22-[address] ASHANTI LEWIS DO [facility] 04-20-[address] ASHANTI LEWIS DO [facility] 02-17-[address] ASHANTI LEWIS DO [facility] 01-07-2014 meningococcal polysaccharide (groups A, C, Y and W-135) diphtheria toxoid conjugate vaccine (MCV4P) DR ASHANTI LEWIS DO [facility] 01-07-2014 tetanus toxoid, redu cristiane diphtheria toxoid, and acellular pertussis vaccine, adsorbed DR ASHANTI LEWIS DO [facility] 01-16-2008 measles/mumps/rubell a virus vaccine DR ASHANTI LEWIS DO [facility] 01-16-2008 poliovirus vaccine, inactivated DR ASHANTI LEWIS DO [facility] 01-16-[address] Juwan LEWIS DO [facility] 01-13-2004 haemophilus influenz ae type b vaccine, PRP-T conjugate DR ASHANTI LEWIS DO [facility] 01-13-[address] Juwan LEWIS DO [facility] 2003 measles/mumps/rubell a virus vaccine DR ASHANTI LEWIS DO [facility] 07-28-2003 hepatitis B pediatri c vaccine DR ASHANTI LEWIS DO [facility] 04-27-2003 haemophilus influenz ae type b vaccine, PRP-T conjugate DR ASHANTI LEWIS DO [facility] 04-27-2003 poliovirus vaccine, inactivated DR ASHANTI LEWIS DO [facility] 02-24-2003 haemophilus influenz ae type b vaccine, PRP-T conjugate DR ASHANTI LEWIS DO [facility] 02-24-2003 poliovirus vaccine, inactivated DR ASHANTI LEWIS DO [facility] 2002 haemophilus influenz ae type b vaccine, PRP-T conjugate DR ASHANTI LEWIS DO [facility] 2002 [address], inactivated DR ASHANTI LEWIS DO [facility] 2002 hepatitis B pediatri c vaccine DR ASHANTI LEWIS DO [facility] 2002 hepatitis B pediatri c vaccine DR ASHANTI LEWIS DO [facility] Payers Date Payer Category Payer Unknown [employer] PPO [id number] 2020-Present [phone] [address] [place] [address] PPO [id number] 2020 Unknown [employer] PPO [id number] 2020-Present [phone] [address] [place] [address] PPO [id number] 2020 Unknown [id number] 2002 Unknown [id number] 2002 Unknown [id number] Unknown [id number] Social History Date Type Detail Facility Start: 04-27-2015 End: 03-06-2022 Tobacco smoking status NHIS Never smoked tobacco [facility] Work Phone: Start: 04-27-2015 End: 03-06-2022 Tobacco use and exposure Smokeless tobacco non-user [facility] Work Phone: Start: 06-09-2017 End: 09-20-2021 Alcohol intake Not Asked [facility] Start: 2002 Sex Assigned At Not on file [facility] Start: 09-10-2021 End: 05-11-2022 Exposure to SARS-CoV-2 (event) Not sure [facility] Work Phone: Start: 01-10-2022 End: 06-05-2023 Alcohol intake Lifetime non-drinker (finding) [facility] Start: 01-10-2022 History SDOH Alcohol Frequency 1 [facility] Sex Assigned At Sex [facility] Start: 05-30-2022 Tobacco smoking status Ex-smoker (fi nding) [facility] Start: 02-14-2021 End: 06-05-2023 History of Social function [facility] Start: 02-14-2021 End: 06-05-2023 Tobacco use panel [facility] National Score (1-100), lower number is lower risk Not on file [facility] Functional Status Date Assessment Result Facility 02-13-2023 Functional Status Independent [facility] Mental Status Date Assessment Result Facility 02-13-2023 Mental Status Orientation Oriented x 4 [facility]3] Clinical Notes 05-31-2020 to 06-05-2023 Maynor Calles APRN.TRINO - 06/05/2023 6:15 PM Dayron Nagy APRN.TRINO - 12/07/2022 5:11 PM Jose Alberto Calles APRN.TRINO - 08/29/2022 7:36 PM Parth Calles APRN.GUN STRIPER - 06/21/2022 10:37 AM EST Note Date & Type Note Facility 06-05-2023 Note HNO ID: [id number] Author: Maynor Calles APRN.GUN STRIPER Service: ? Author Type: Nurse Practitioner Type: Progress Notes Filed: 06/05/2023 6:26 PM Note Text: Subjective HPI HPI Rakel Eaton is a 22 year old female who presents today for CC of right low back pain, radiates to right leg. This started 2 months ago. Has tried otc medication for relief. Symptoms are worsened by nothing. Risk factors hx of recurrent back pain. No injury to cause. Denies possibility of being . .Patient presents with: Low Back Pain: x 2 months No past medical history on file. No past surgical history on file. ALLERGIES Delsym [Dextromethorphan Hbr] and Penicillins MEDICATIONS sertraline (ZOLOFT) 25 mg tablet 100 mg. 125mg total LORATADINE ORAL Take by mouth. predniSONE (DELTASONE) 10 mg tablet Take 4 tabs daily for 3 days, then 2 tabs daily for 3 days, then 1 tab daily for 3 days with food. (Patient not taking: Reported on 06/05/2023) cyclobenzaprine (FLEXERIL) 10 mg tablet Take 1 tablet by mouth three times daily as needed for muscle spasm. (Patient not taking: Reported on 06/05/2023) buPROPion XL (WELLBUTRIN XL) 150 mg 24 hr tablet TAKE 1 TABLET BY MOUTH EVERY DAY DO NOT CRUSH OR CHEW (Patient not taking: Reported on 11/21/2022) ondansetron orally disintegrating (ZOFRAN ODT) 4 mg disintegrating tablet Take 1 tablet by mouth every 6 hours as needed for nausea/vomiting. (Patient not taking: Reported on 08/29/2022) cyclobenzaprine (FLEXERIL) 10 mg tablet Take 1 tablet by mouth three times daily as needed for muscle spasm. (Patient not taking: Reported on 06/07/2022) predniSONE (DELTASONE) 10 mg tablet Take 4 tabs daily for 3 days, then 2 tabs daily for 3 days, then 1 tab daily for 3 days with food. (Patient not taking: Reported on 06/07/2022) loperamide (IMODIUM) 2 mg cap(s) Take 1 capsule by mouth three times daily as needed for diarrhea for up to 14 days. (Patient not taking: Reported on 06/05/2023) benzonatate (TESSALON PERLE) 100 mg capsule Take 1 capsule by mouth three times daily as needed. (Patient not taking: Reported on 02/14/2021 ) predniSONE (DELTASONE) 10 mg tablet Take 4 tabs daily for 3 days, then 2 tabs daily for 3 days, then 1 tab daily for 3 days with food. permethrin (ELIMITE) 5 % cream Scabies: Apply cream from head to toe; leave on for 8-14 hours before washing off with water; for infants, also apply on the hairline, neck, scalp, alevism, and forehead; may reapply in 1 week if live mites appear. Amphetamine-Dextroamphetamine (ADDERALL XR) 25 mg 24 hr capsule Take 25 mg by mouth. (Patient not taking: Reported on 02/14/2021) dextroamphetamine-amphetamine (ADDERALL) 5 mg tablet Take 5 mg by mouth once daily. No family history on file. Social History Tobacco Use Smoking status: Never Smokeless tobacco: Never Substance Use Topics Alcohol use: Never Drug use: Never Review of Systems Constitutional: Negative for chills, fever and weight loss. Cardiovascular: Negative for leg swelling. Gastrointestinal: Negative for abdominal pain, constipation, diarrhea, nausea and vomiting. Genitourinary: Negative for dysuria, flank pain, frequency, hematuria and urgency. Musculoskeletal: Positive for back pain. Skin: Negative for rash. Neurological: Negative for sensory change and focal weakness. Objective Physical Exam Constitutional: General: She is not in acute distress. Appearance: Normal appearance. She is not diaphoretic. Cardiovascular: Pulses: Dorsalis pedis pulses are 2+ on the right side and 2+ on the left side. Posterior tibial pulses are 2+ on the right side and 2+ on the left side. Abdominal: General: Bowel sounds are normal. Palpations: Abdomen is soft. Tenderness: There is no abdominal tenderness. Musculoskeletal: Lumbar back: Spasms present. Decreased range of motion. Back: Comments: Lumbar paraspinal muscles tender with palpation. Modified SLR negative. Neurological: Mental Status: She is alert and oriented to person, place, and time. Gait: Gait is intact. Gait normal. Deep Tendon Reflexes: Reflex Scores: Patellar reflexes are 2+ on the right side and 2+ on the left side. ASSESSMENT/PLAN: 1. Acute right-sided low back pain with right-sided sciatica - ICD9: 724.2, 724.3, ICD10: M54.41 Steroids/flexeril ordered Home pt provided F/u with pcp if s/s persist/worsen/change Urgent f/u for red flag symptoms - PREDNISONE 10 MG TABLET - CYCLOBENZAPRINE 10 MG TABLET Maynor Calles APRN.[facility] 06-05-2023 History of Present illness Narrative Formatting of this note is different fro m the original. Images from the original note were not included. Subjective HPI HPI Rakel Eaton is a 22 year old female who presents today for CC of right low back pain, radiates to right leg. This started 2 months ago. Has tried otc medication for relief. Symptoms are worsened by nothing. Risk factors hx of recurrent back pain. No injury to cause. Denies possibility of being . .Patient presents with: Low Back Pain: x 2 months No past medical history on file. No past surgical history on file. ALLERGIES Delsym [Dextromethorphan Hbr] and Penicillins MEDICATIONS sertraline (ZOLOFT) 25 mg tablet 100 mg. 125mg total LORATADINE ORAL Take by mouth. predniSONE (DELTASONE) 10 mg tablet Take 4 tabs daily for 3 days, then 2 tabs daily for 3 days, then 1 tab daily for 3 days with food. (Patient not taking: Reported on 06/05/2023) cyclobenzaprine (FLEXERIL) 10 mg tablet Take 1 tablet by mouth three times daily as needed for muscle spasm. (Patient not taking: Reported on 06/05/2023) buPROPion XL (WELLBUTRIN XL) 150 mg 24 hr tablet TAKE 1 TABLET BY MOUTH EVERY DAY DO NOT CRUSH OR CHEW (Patient not taking: Reported on 11/21/2022) ondansetron orally disintegrating (ZOFRAN ODT) 4 mg disintegrating tablet Take 1 tablet by mouth every 6 hours as needed for nausea/vomiting. (Patient not taking: Reported on 08/29/2022) cyclobenzaprine (FLEXERIL) 10 mg tablet Take 1 tablet by mouth three times daily as needed for muscle spasm. (Patient not taking: Reported on 06/07/2022) predniSONE (DELTASONE) 10 mg tablet Take 4 tabs daily for 3 days, then 2 tabs daily for 3 days, then 1 tab daily for 3 days with food. (Patient not taking: Reported on 06/07/2022) loperamide (IMODIUM) 2 mg cap(s) Take 1 capsule by mouth three times daily as needed for diarrhea for up to 14 days. (Patient not taking: Reported on 06/05/2023) benzonatate (TESSALON PERLE) 100 mg capsule Take 1 capsule by mouth three times daily as needed. (Patient not taking: Reported on 02/14/2021 ) predniSONE (DELTASONE) 10 mg tablet Take 4 tabs daily for 3 days, then 2 tabs daily for 3 days, then 1 tab daily for 3 days with food. permethrin (ELIMITE) 5 % cream Scabies: Apply cream from head to toe; leave on for 8-14 hours before washing off with water; for infants, also apply on the hairline, neck, scalp, alevism, and forehead; may reapply in 1 week if live mites appear. Amphetamine-Dextroamphetamine (ADDERALL XR) 25 mg 24 hr capsule Take 25 mg by mouth. (Patient not taking: Reported on 02/14/2021) dextroamphetamine-amphetamine (ADDERALL) 5 mg tablet Take 5 mg by mouth once daily. No family history on file. Social History Tobacco Use Smoking status: Never Smokeless tobacco: Never Substance Use Topics Alcohol use: Never Drug use: Never Review of Systems Constitutional: Negative for chills, fever and weight loss. Cardiovascular: Negative for leg swelling. Gastrointestinal: Negative for abdominal pain, constipation, diarrhea, nausea and vomiting. Genitourinary: Negative for dysuria, flank pain, frequency, hematuria and urgency. Musculoskeletal: Positive for back pain. Skin: Negative for rash. Neurological: Negative for sensory change and focal weakness. Objective Physical Exam Constitutional: General: She is not in acute distress. Appearance: Normal appearance. She is not diaphoretic. Cardiovascular: Pulses: Dorsalis pedis pulses are 2+ on the right side and 2+ on the left side. Posterior tibial pulses are 2+ on the right side and 2+ on the left side. Abdominal: General: Bowel sounds are normal. Palpations: Abdomen is soft. Tenderness: There is no abdominal tenderness. Musculoskeletal: Lumbar back: Spasms present. Decreased range of motion. Back: Comments: Lumbar paraspinal muscles tender with palpation. Modified SLR negative. Neurological: Mental Status: She is alert and oriented to person, place, and time. Gait: Gait is intact. Gait normal. Deep Tendon Reflexes: Reflex Scores: Patellar reflexes are 2+ on the right side and 2+ on the left side. ASSESSMENT/PLAN: 1. Acute right-sided low back pain with right-sided sciatica - ICD9: 724.2, 724.3, ICD10: M54.41 Steroids/flexeril ordered Home pt provided F/u with pcp if s/s persist/worsen/change Urgent f/u for red flag symptoms - PREDNISONE 10 MG TABLET - CYCLOBENZAPRINE 10 MG TABLET Maynor Calles APRN.[employer] documented in this encounter [facility] 02-13-2023 Hospital Discharge instructions Patient Education 02/13/2023 21:41:22 After Tonsillectomy/Adenoidectomy After Tonsillectomy/Adenoidectomy Drinking plenty of fluids will help your child recover. Your child has had surgery to remove tonsils or adenoids. Your child will need time to get better. Below are guidelines for your child s recovery. Pain and activity Expect your child to have some throat or ear pain for 1 to 2 weeks. Limit activity for 1 to 2 weeks or as advised. Diet Make sure your child gets enough fluids and nutrients. Food and drink guidelines include: Give lots of fluids. Good choices are water, popsicles, and mild juices. (Do not give citrus juice or other acidic juices.) Give soft foods to eat. These include gelatin, pudding, ice cream, scrambled eggs, pasta, and mashed foods. Do not give spicy, acidic, or rough foods. These include fresh fruits, toast, crackers, and potato chips. Medicine Give only medicines approved by your child s healthcare provider. Follow directions closely when giving your child medicines: Your child may be prescribed pain medicine. Do not give your child ibuprofen or aspirin. They may cause bleeding. If needed for discomfort, you can give your child acetaminophen instead. When to call your child's healthcare provider Mild pain and a slight fever are normal after surgery. The surgical site will turn whitish while it is healing. This is normal and not an infection. But call your child's healthcare provider right away if your otherwise healthy child has any of the following: Persistent fever (See Fever and children, below) Your child has had a seizure caused by the fever Severe pain not relieved by medicine Bright red bleeding. This includes fast bleeding, spitting, or coughing up a large clot, or blood-tinged spit that continues Trouble breathing Fever and children Always use a digital thermometer to check your child s temperature. Never use a mercury thermometer. For infants and toddlers, be sure to use a rectal thermometer correctly. A rectal thermometer may accidentally poke a hole in (perforate) the rectum. It may also pass on germs from the stool. Always follow the product maker s directions for proper use. If you don t feel comfortable taking a rectal temperature, use another method. When you talk to your child s healthcare provider, tell him or her which method you used to take your child s temperature. Here are guidelines for fever temperature. Ear temperatures aren t accurate before 6 months of age. Don t take an oral temperature until your child is at least 4 years old. under 3 months old: Ask your child s healthcare provider how you should take the temperature. Rectal or forehead (temporal artery) temperature of 100.4 F (38 C) or higher, or as directed by the provider Armpit temperature of 99 F (37.2 C) or higher, or as directed by the provider Child age 3 to 36 months: Rectal, forehead (temporal artery), or ear temperature of 102 F (38.9 C) or higher, or as directed by the provider Armpit temperature of 101 F (38.3 C) or higher, or as directed by the provider Child of any age: Repeated temperature of 104 F (40 C) or higher, or as directed by the provider Fever that lasts more than 24 hours in a child under 2 years old. Or a fever that lasts for 3 days in a child 2 years or older. [id number] [employer]. [address] [place] [address]. All rights reserved. This information is not intended as a substitute for professional medical care. Always follow your healthcare professional's instructions. 02/13/2023 21:41:14 Dehydration (Adult) Dehydration (Adult) Dehydration occurs when your body loses too much fluid. This may be the result of prolonged vomiting or diarrhea, excessive sweating, or a high fever. It may also happen if you don t drink enough fluid when you re sick or out in the heat. Misuse of diuretics (water pills) can also be a cause. Symptoms include thirst and decreased urine output. You may also feel dizzy, weak, fatigued, or very drowsy. The diet described below is usually enough to treat dehydration. In some cases, you may need medicine. Home care Drink at least 12 8-ounce glasses of fluid every day to resolve the dehydration. Fluid may include water; orange juice; lemonade; apple, grape, or cranberry juice; clear fruit drinks; electrolyte replacement and sports drinks; and teas and coffee without caffeine. Don't drink alcohol. If you have been diagnosed with a kidney disease, ask your doctor how much and what types of fluids you should drink to prevent dehydration. If you have kidney disease, fluid can build up in the body. This can be dangerous to your health. If you have a fever, muscle aches, or a headache as a result of a cold or flu, you may take acetaminophen or ibuprofen, unless another medicine was prescribed. If you have chronic liver or kidney disease, or have ever had a stomach ulcer or gastrointestinal bleeding, talk with your healthcare provider before using these medicines. Don't take aspirin if you are younger than 18 and have a fever. Aspirin raises the chance for severe liver injury. Follow-up care Follow up with your healthcare provider, or as advised. When to seek medical advice Call your healthcare provider right away if any of these occur: Continued vomiting Frequent diarrhea (more than 5 times a day); blood (red or black color) or mucus in diarrhea Blood in vomit or stool Swollen abdomen or increasing abdominal pain Weakness, dizziness, or fainting Unusual drowsiness or confusion Reduced urine output or extreme thirst Fever of 100.4 F (38 C) or higher [id number] [employer]. [address] [place] [address]. All rights reserved. This information is not intended as a substitute for professional medical care. Always follow your healthcare professional's instructions. Follow Up Care 02/13/2023 18:57:19 With:ASHANTI LEWIS DO Address: [address] [facility] [place] [address]- [phone] When:2-4 days Comments:Your liver enzymes were slightly abnormal. Please have these retested by her primary care physician within the next several days. Avoid taking Tylenol or products with acetaminophen. [facility] 02-13-2023 Note Discharge Instructions Thank you for allowing [facility] to assist you with your healthcare needs. The following is important discharge information regarding your hospital visit. Diagnosis from Today's Visit Dehydration Weakness or fatigue What to Do Next Instructions from Your Care Team No qualifying data available. Post Acute Orders No qualifying data available. You Need to Schedule the Following Appointments Follow Up with ASHANTI LEWIS DO When Within 2-4 days Why: Your liver enzymes were slightly abnormal. Please have these retested by her primary care physician within the next several days. Avoid taking Tylenol or products with acetaminophen. Where: [address] [facility] [place], [place] [phone]- [phone] Allergies penicillin Medications Please ask your primary doctor or pharmacist before taking any other medication not listed, including over the counter drugs, herbal medications, vitamins and or supplements as they may interact with your home medications. What How Much When Instructions Last Dose Unchanged cyclobenzaprine (cyclobenzaprine 10 mg oral tablet) TAKE 1 TABLET BY MOUTH THREE TIMES A DAY NEEDED FOR MUSCLE SPASM Unchanged loratadine (loratadine 10 mg oral capsule) 1 cap by mouth Once a day Unchanged predniSONE (predniSONE 10 mg oral tablet) TAKE 4 TABS DAILY FOR 3 DAYS, THEN 2 TABS DAILY FOR 3 DAYS, THEN 1 TAB DAILY FOR 3 DAYS WITH FOOD. Unchanged sertraline (sertraline 100 mg oral tablet) 1 tab(s) by mouth Once a day Duration: 90 Days take with 25 mg dose for total of 125 mg daily Unchanged sertraline (sertraline 25 mg oral tablet) 1 tab(s) by mouth Once a day Duration: 90 Days take with 100 mg dose for total of 125 mg daily Please take this list to your next doctor s visit. Bring all medications you take, including over the counter medications, herbals and other supplements with you to your doctor s visit. Patients and families are reminded to discard old lists and to update any records with all medication providers or retail pharmacies. Education Materials After Tonsillectomy/Adenoidectomy Drinking plenty of fluids will help your child recover. Your child has had surgery to remove tonsils or adenoids. Your child will need time to get better. Below are guidelines for your child s recovery. Pain and activity Expect your child to have some throat or ear pain for 1 to 2 weeks. Limit activity for 1 to 2 weeks or as advised. Diet Make sure your child gets enough fluids and nutrients. Food and drink guidelines include: Give lots of fluids. Good choices are water, popsicles, and mild juices. (Do not give citrus juice or other acidic juices.) Give soft foods to eat. These include gelatin, pudding, ice cream, scrambled eggs, pasta, and mashed foods. Do not give spicy, acidic, or rough foods. These include fresh fruits, toast, crackers, and potato chips. Medicine Give only medicines approved by your child s healthcare provider. Follow directions closely when giving your child medicines: Your child may be prescribed pain medicine. Do not give your child ibuprofen or aspirin. They may cause bleeding. If needed for discomfort, you can give your child acetaminophen instead. When to call your child's healthcare provider Mild pain and a slight fever are normal after surgery. The surgical site will turn whitish while it is healing. This is normal and not an infection. But call your child's healthcare provider right away if your otherwise healthy child has any of the following: Persistent fever (See Fever and children, below) Your child has had a seizure caused by the fever Severe pain not relieved by medicine Bright red bleeding. This includes fast bleeding, spitting, or coughing up a large clot, or blood-tinged spit that continues Trouble breathing Fever and children Always use a digital thermometer to check your child s temperature. Never use a mercury thermometer. For infants and toddlers, be sure to use a rectal thermometer correctly. A rectal thermometer may accidentally poke a hole in (perforate) the rectum. It may also pass on germs from the stool. Always follow the product maker s directions for proper use. If you don t feel comfortable taking a rectal temperature, use another method. When you talk to your child s healthcare provider, tell him or her which method you used to take your child s temperature. Here are guidelines for fever temperature. Ear temperatures aren t accurate before 6 months of age. Don t take an oral temperature until your child is at least 4 years old. under 3 months old: Ask your child s healthcare provider how you should take the temperature. Rectal or forehead (temporal artery) temperature of 100.4 F (38 C) or higher, or as directed by the provider Armpit temperature of 99 F (37.2 C) or higher, or as directed by the provider Child age 3 to 36 months: Rectal, forehead (temporal artery), or ear temperature of 102 F (38.9 C) or higher, or as directed by the provider Armpit temperature of 101 F (38.3 C) or higher, or as directed by the provider Child of any age: Repeated temperature of 104 F (40 C) or higher, or as directed by the provider Fever that lasts more than 24 hours in a child under 2 years old. Or a fever that lasts for 3 days in a child 2 years or older. [id number] [employer]. [address] [place] [address]. All rights reserved. This information is not intended as a substitute for professional medical care. Always follow your healthcare professional's instructions. Dehydration (Adult) Dehydration occurs when your body loses too much fluid. This may be the result of prolonged vomiting or diarrhea, excessive sweating, or a high fever. It may also happen if you don t drink enough fluid when you re sick or out in the heat. Misuse of diuretics (water pills) can also be a cause. Symptoms include thirst and decreased urine output. You may also feel dizzy, weak, fatigued, or very drowsy. The diet described below is usually enough to treat dehydration. In some cases, you may need medicine. Home care Drink at least 12 8-ounce glasses of fluid every day to resolve the dehydration. Fluid may include water; orange juice; lemonade; apple, grape, or cranberry juice; clear fruit drinks; electrolyte replacement and sports drinks; and teas and coffee without caffeine. Don't drink alcohol. If you have been diagnosed with a kidney disease, ask your doctor how much and what types of fluids you should drink to prevent dehydration. If you have kidney disease, fluid can build up in the body. This can be dangerous to your health. If you have a fever, muscle aches, or a headache as a result of a cold or flu, you may take acetaminophen or ibuprofen, unless another medicine was prescribed. If you have chronic liver or kidney disease, or have ever had a stomach ulcer or gastrointestinal bleeding, talk with your healthcare provider before using these medicines. Don't take aspirin if you are younger than 18 and have a fever. Aspirin raises the chance for severe liver injury. Follow-up care Follow up with your healthcare provider, or as advised. When to seek medical advice Call your healthcare provider right away if any of these occur: Continued vomiting Frequent diarrhea (more than 5 times a day); blood (red or black color) or mucus in diarrhea Blood in vomit or stool Swollen abdomen or increasing abdominal pain Weakness, dizziness, or fainting Unusual drowsiness or confusion Reduced urine output or extreme thirst Fever of 100.4 F (38 C) or higher [phone] [employer]. [address] [place] [address]. All rights reserved. This information is not intended as a substitute for professional medical care. Always follow your healthcare professional's instructions. Additional Information VACCINATE! IT SAVES LIVES! Members of the community who have not yet received the COVID-19 vaccine and would like to receive it can visit one of [facility] vaccine clinics. There are many vaccine clinic locations within the [facility]. For locations and available times, please visit [email or web address].[place].gov/. It is important to note that some COVID mobile vaccine clinics are held outdoors and may be canceled in rainy or stormy conditions. To learn more about pediatric vaccinations (ages 5-11), we invite you to visit the [facility] webpage. [email or web address] To learn more about the COVID-19 vaccine, we invite you to visit the CDC website for a list of frequently asked questions. https://www.cdc.gov/coronavirus/2019-ncov/vaccin es/faq.html [facility] Patient Portal Access Instructions: Stay connected with your healthcare team and access your personal medical information anytime with the [facility] Patient Portal. If you would like a full copy of your medical records please contact the [facility] Medical Records Department Sunday through Sunday between 8a.m. and 4:30p.m. Please follow the directions below to access the portal: 1.Access the email account you provided upon registration to the hospital.2.Look for an invitation email from [facility].3.Open the email and access the invitation link: Accept Invitation to [facility]4.Fill in the required martinez to create your account. Sign into [email or web address] with your username and password that you created in the above steps to stay up to date. You can then view a summary of results, a summary of your visits, and the ability to download your summaries to your computer or send the information securely to a physician. Remember that your healthcare information is confidential, so carefully consider who you will allow to register on the [employer] Patient Portal for access to your information. You can also access the [employer] Patient Portal on the [employer]. Simply click on Health Records under Health Data and then click on the [employer] logo. HOW TO SAFELY DISPOSE OF PRESCRIPTION MEDICATIONS Please use one of the following methods to safely dispose of your unused medications. 1.Use a drug disposal kit: the drug disposal pouch allows you to safely discard your old and unused drugs. Ask your nurse to give you one when you are discharged.2.Visit a local take-back location: Many local pharmacies and police departments have programs that collect old and unwanted prescription drugs. Call your local pharmacy or go to http://[employer]/2L2Dc1u to find one close to you.3.Make use of household items: Use cat litter or old coffee grounds to dispose medications if other options are not available. Mix your drugs with these household products, seal them in an airtight container and throw it into the garbage. Call [facility]: [phone] to be sure your drugs can be disposed of in this way. Some medicines may require a different approach.4.Never flush your medications down the toilet. IF YOU HAVE BEEN PRESCRIBED AN OPIOIDS FOR PAIN If you have been prescribed an opioid (such as hydrocodone, oxycodone or morphine), it is critical to understand the possible side effects and risks of opioid pain medications. Even when taken as directed, opioids can have several side effects including: Tolerance, meaning you might need to take more of a medication for the same pain relief. Nausea, vomiting and/or constipation. Sleepiness, dizziness, dry mouth, confusion, depression or itching. Physical dependence, meaning you have withdrawal symptoms when a medication is stopped ? this can develop within a few days. KNOW YOUR RESPONSIBILITIES It is important to know exactly how much and how often to take the opioid pain medications you are prescribed. Never take opioids in higher amounts or more often than prescribed. Do not combine opioids with alcohol or other drugs that cause drowsiness, such as benzodiazepines, also known as benzos, including diazepam and alprazolam, muscle relaxants or sleep aids. Never sell or share prescription opioids. This is illegal. Store opioids in a secure place and out of reach of others (including children, family, friends and visitors). The last page(s) of this document has been signed and retained as a CHART COPY Signatures Patient Education Materials After Tonsillectomy/Adenoidectomy Dehydration (Adult) Medication Leaflets My discharge plan and instructions have been reviewed and explained to me and I,RAKEL EATON understand my current condition and have read and understand these discharge instructions. I have received a written copy of the plan/instructions. If I have questions, I am aware that I should contact my doctor. Patient/Retail Beauty Specialist Signature: Date/Time: Relationship to Patient: Witness Name/Signature: Date/Time: [facility] 02-13-2023 Note Sinus arrhythmia RSR' in V1 or V2, right VCD or RVH Electronic Signature: MD KELLI LEONARDO MD 02/13/2023 19:47:35 [facility] 02-08-2023 Note Pathology Report verified by [facility] [employer] Sign out Date: 02/08/2023 16:20 Performing Lab: [address] Pathology Dept [facility] 02-08-2023 Note Pathology Report verified by [facility] [employer] Sign out Date: 02/08/2023 16:20 Performing Lab: [place] [id number] [place] Pathology Dept [facility] 02-08-2023 Note Pathology Report verified by [facility] [employer] Sign out Date: 02/08/2023 16:20 Performing Lab: [facility], [address] [place] [address] Pathology Dept [facility] 02-08-2023 Note Pathology Report verified by [facility] [employer] Sign out Date: 02/08/2023 16:20 Performing Lab: [facility], [address] [place] [address] Pathology Dept [facility] 02-08-2023 Note Pathology Report verified by [facility] [employer] Sign out Date: 02/08/2023 16:20 Performing Lab: [facility], [address] [place] [address] Pathology Dept [facility] 02-08-2023 Note Pathology Report verified by [facility] [employer] Sign out Date: 02/08/2023 16:20 Performing Lab: [facility], [address] [place], [place] [id number] [place] Pathology Dept [facility] 02-08-2023 Note Pathology Report verified by [facility] [employer] Sign out Date: 02/08/2023 16:20 Performing Lab: [facility], [address] [place], [place] [id number] [facility] Pathology Dept [facility] 02-07-2023 Note Pathology Report verified by [facility] [employer] Sign out Date: 02/08/2023 16:20 Performing Lab: [facility], [address] [place] [address] Pathology Dept [facility] 12-07-2022 Note HNO ID: [id number] Author: Preethi Nagy APRN.GUN STRIPER Service: ? Author Type: Nurse Practitioner Type: Progress Notes Filed: 12/07/2022 5:47 PM Note Text: This note was created using Medical Referral Sour[employer]. Subjective Rakel Eaton is a 22 year old female. 22 year old female with no PMH presents for lower back pain. Acute onset 2 days ago States started to hurt mid day. 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 Stabbing and sharp Denies sx. Denies skin rash or lesions. Denies unilateral weakness, inability to ambulate, loss of bowel or bladder, IV drug usage. Endorses history of back problems. Has used Ibuprofen and Tylenol The history is provided by the patient. No language path was used. Back Pain This is a new problem. The current episode started 2 days ago. The problem occurs constantly. The problem has not changed since onset.Associated with: picking up. The pain is present in the lumbar spine. The quality of the pain is described as stabbing. The pain does not radiate. The pain is at a severity of 6/10. The symptoms are aggravated by bending, twisting and certain positions. The pain is The same all the time. Stiffness is present All day. Pertinent negatives include no chest pain, no fever, no numbness, no weight loss, no headaches, no abdominal pain, no abdominal swelling, no bowel incontinence, no perianal numbness, no bladder incontinence, no dysuria, no pelvic pain, no leg pain, no paresthesias, no paresis, no tingling and no weakness. She has tried NSAIDs for the symptoms. The treatment provided no relief. Risk factors include poor posture and obesity. No past medical history on file. No past surgical history on file. ALLERGIES Delsym [Dextromethorphan Hbr] and Penicillins MEDICATIONS sertraline (ZOLOFT) 25 mg niomol244 mg. 125mg totalDisp: Rfl: LORATADINE ORALTake by mouth.Disp: Rfl: predniSONE (DELTASONE) 10 mg tabletTake 4 tabs daily for 3 days, then 2 tabs daily for 3 days, then 1 tab daily for 3 days with food.Disp: 21 tabletRfl: 0 cyclobenzaprine (FLEXERIL) 10 mg tabletTake 1 tablet by mouth three times daily as needed for muscle spasm.Disp: 21 tabletRfl: 0 buPROPion XL (WELLBUTRIN XL) 150 mg 24 hr tabletTAKE 1 TABLET BY MOUTH EVERY DAY DO NOT CRUSH OR CHEWDisp: Rfl: (Patient not taking: Reported on 11/21/2022) ondansetron orally disintegrating (ZOFRAN ODT) 4 mg disintegrating tabletTake 1 tablet by mouth every 6 hours as needed for nausea/vomiting.Disp: 15 tabletRfl: 0 (Patient not taking: Reported on 08/29/2022) cyclobenzaprine (FLEXERIL) 10 mg tabletTake 1 tablet by mouth three times daily as needed for muscle spasm.Disp: 18 tabletRfl: 0 (Patient not taking: Reported on 06/07/2022) predniSONE (DELTASONE) 10 mg tabletTake 4 tabs daily for 3 days, then 2 tabs daily for 3 days, then 1 tab daily for 3 days with food.Disp: 21 tabletRfl: 0 (Patient not taking: Reported on 06/07/2022) loperamide (IMODIUM) 2 mg cap(s)Take 1 capsule by mouth three times daily as needed for diarrhea for up to 14 days.Disp: 30 capsuleRfl: 0 benzonatate (TESSALON PERLE) 100 mg capsuleTake 1 capsule by mouth three times daily as needed.Disp: 30 capsuleRfl: 0 (Patient not taking: Reported on 02/14/2021 ) predniSONE (DELTASONE) 10 mg tabletTake 4 tabs daily for 3 days, then 2 tabs daily for 3 days, then 1 tab daily for 3 days with food.Disp: 21 tabletRfl: 0 permethrin (ELIMITE) 5 % creamScabies: Apply cream from head to toe; leave on for 8-14 hours before washing off with water; for infants, also apply on the hairline, neck, scalp, alevism, and forehead; may reapply in 1 week if live mites appear.Disp: 1 BottleRfl: 1 Amphetamine-Dextroamphetamine (ADDERALL XR) 25 mg 24 hr capsuleTake 25 mg by mouth.Disp: Rfl: (Patient not taking: Reported on 02/14/2021) dextroamphetamine-amphetamine (ADDERALL) 5 mg tabletTake 5 mg by mouth once daily.Disp: Rfl: No family history on file. Social History Tobacco Use Smoking status: Never Smokeless tobacco: Never Substance Use Topics Alcohol use: Never Drug use: Never Review of Systems Constitutional: Negative for activity change, appetite change, chills, diaphoresis, fever and weight loss. Respiratory: Negative for apnea, cough, choking, chest tightness and shortness of breath. Cardiovascular: Negative for chest pain. Gastrointestinal: Negative for abdominal pain, bowel incontinence, diarrhea, nausea and vomiting. Genitourinary: Negative for bladder incontinence, dysuria and pelvic pain. Musculoskeletal: Positive for back pain. Negative for joint swelling and myalgias. Skin: Negative for color change, pallor, rash and wound. Allergic/Immunologic: Negative for environmental allergies, food allergies and immunocompromised state. Neurological: Negative for dizziness, tingling, facial asymm (more content not included)... [facility] 12-07-2022 History of Present illness Narrative Formatting of this note is different fro m the original. This note was created using [employer]. Subjective aRkel Eaton is a 22 year old female. 22 year old female with no PMH presents for lower back pain. Acute onset 2 days ago States started to hurt mid day. 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 Stabbing and sharp Denies sx. Denies skin rash or lesions. Denies unilateral weakness, inability to ambulate, loss of bowel or bladder, IV drug usage. Endorses history of back problems. Has used Ibuprofen and Tylenol The history is provided by the patient. No language path was used. Back Pain This is a new problem. The current episode started 2 days ago. The problem occurs constantly. The problem has not changed since onset.Associated with: picking up. The pain is present in the lumbar spine. The quality of the pain is described as stabbing. The pain does not radiate. The pain is at a severity of 6/10. The symptoms are aggravated by bending, twisting and certain positions. The pain is The same all the time. Stiffness is present All day. Pertinent negatives include no chest pain, no fever, no numbness, no weight loss, no headaches, no abdominal pain, no abdominal swelling, no bowel incontinence, no perianal numbness, no bladder incontinence, no dysuria, no pelvic pain, no leg pain, no paresthesias, no paresis, no tingling and no weakness. She has tried NSAIDs for the symptoms. The treatment provided no relief. Risk factors include poor posture and obesity. No past medical history on file. No past surgical history on file. ALLERGIES Delsym [Dextromethorphan Hbr] and Penicillins MEDICATIONS sertraline (ZOLOFT) 25 mg tablet^100 mg. 125mg total^Disp: ^Rfl: LORATADINE ORAL^Take by mouth.^Disp: ^Rfl: predniSONE (DELTASONE) 10 mg tablet^Take 4 tabs daily for 3 days, then 2 tabs daily for 3 days, then 1 tab daily for 3 days with food.^Disp: 21 tablet^Rfl: 0 cyclobenzaprine (FLEXERIL) 10 mg tablet^Take 1 tablet by mouth three times daily as needed for muscle spasm.^Disp: 21 tablet^Rfl: 0 buPROPion XL (WELLBUTRIN XL) 150 mg 24 hr tablet^TAKE 1 TABLET BY MOUTH EVERY DAY DO NOT CRUSH OR CHEW^Disp: ^Rfl: (Patient not taking: Reported on 11/21/2022) ondansetron orally disintegrating (ZOFRAN ODT) 4 mg disintegrating tablet^Take 1 tablet by mouth every 6 hours as needed for nausea/vomiting.^Disp: 15 tablet^Rfl: 0 (Patient not taking: Reported on 08/29/2022) cyclobenzaprine (FLEXERIL) 10 mg tablet^Take 1 tablet by mouth three times daily as needed for muscle spasm.^Disp: 18 tablet^Rfl: 0 (Patient not taking: Reported on 06/07/2022) predniSONE (DELTASONE) 10 mg tablet^Take 4 tabs daily for 3 days, then 2 tabs daily for 3 days, then 1 tab daily for 3 days with food.^Disp: 21 tablet^Rfl: 0 (Patient not taking: Reported on 06/07/2022) loperamide (IMODIUM) 2 mg cap(s)^Take 1 capsule by mouth three times daily as needed for diarrhea for up to 14 days.^Disp: 30 capsule^Rfl: 0 benzonatate (TESSALON PERLE) 100 mg capsule^Take 1 capsule by mouth three times daily as needed.^Disp: 30 capsule^Rfl: 0 (Patient not taking: Reported on 02/14/2021 ) predniSONE (DELTASONE) 10 mg tablet^Take 4 tabs daily for 3 days, then 2 tabs daily for 3 days, then 1 tab daily for 3 days with food.^Disp: 21 tablet^Rfl: 0 permethrin (ELIMITE) 5 % cream^Scabies: Apply cream from head to toe; leave on for 8-14 hours before washing off with water; for infants, also apply on the hairline, neck, scalp, alevism, and forehead; may reapply in 1 week if live mites appear.^Disp: 1 Bottle^Rfl: 1 Amphetamine-Dextroamphetamine (ADDERALL XR) 25 mg 24 hr capsule^Take 25 mg by mouth.^Disp: ^Rfl: (Patient not taking: Reported on 02/14/2021) dextroamphetamine-amphetamine (ADDERALL) 5 mg tablet^Take 5 mg by mouth once daily.^Disp: ^Rfl: No family history on file. Social History Tobacco Use Smoking status: Never Smokeless tobacco: Never Substance Use Topics Alcohol use: Never Drug use: Never Review of Systems Constitutional: Negative for activity change, appetite change, chills, diaphoresis, fever and weight loss. Respiratory: Negative for apnea, cough, choking, chest tightness and shortness of breath. Cardiovascular: Negative for chest pain. Gastrointestinal: Negative for abdominal pain, bowel incontinence, diarrhea, nausea and vomiting. Genitourinary: Negative for bladder incontinence, dysuria and pelvic pain. Musculoskeletal: Positive for back pain. Negative for joint swelling and myalgias. Skin: Negative for color change, pallor, rash and wound. Allergic/Immunologic: Negative for environmental allergies, food allergies and immunocompromised state. Neurological: Negative for dizziness, tingling, facial asymmetry, weakness, light-headedness, numbness, headaches and paresthesias. Hematological: Negative for adenopathy. Does not bruise/bleed easily. Psychiatric/Behavioral: Negative for agitation and behavioral problems. Objective BP 122/68 Pulse 90 Temp 36.6 C (97.8 F) (Tympanic) Resp 18 Wt 106.9 kg (235 lb 9.6 oz) LMP (LMP Unknown) SpO2 98% Physical Exam Vitals and nursing note reviewed. Constitutional: General: She is not in acute distress. Appearance: Normal appearance. She is obese. She is not ill-appearing, toxic-appearing or diaphoretic. HENT: Head: Normocephalic and atraumatic. Right Ear: Ear canal and external ear normal. Left Ear: Ear canal and external ear normal. Nose: Nose normal. No congestion or rhinorrhea. Mouth/Throat: Mouth: Mucous membranes are moist. Pharynx: No oropharyngeal exudate or posterior oropharyngeal erythema. Eyes: General: Right eye: No discharge. Left eye: No discharge. Extraocular Movements: Extraocular movements intact. Conjunctiva/sclera: Conjunctivae normal. Pupils: Pupils are equal, round, and reactive to light. Cardiovascular: Rate and Rhythm: Normal rate and regular rhythm. Pulses: Normal pulses. Heart sounds: Normal heart sounds. No murmur heard. No friction rub. Pulmonary: Effort: Pulmonary effort is normal. No respiratory distress. Breath sounds: Normal breath sounds. No stridor. No wheezing, rhonchi or rales. Chest: Chest wall: No tenderness. Abdominal: General: Abdomen is flat. There is no distension. Palpations: Abdomen is soft. There is no mass. Tenderness: There is no abdominal tenderness. There is no right CVA tenderness, left CVA tenderness, guarding or rebound. Hernia: No hernia is present. Musculoskeletal: General: Tenderness (No midline cervical, thoracic, or lumbar TTP. Bilateral SI joint TTP left greater than right. No skin rash or lesions. No step off. Ambulatory in exam room.) present. No swelling, deformity or signs of injury. Normal range of motion. Cervical back: Normal range of motion and neck supple. No rigidity. Right lower leg: No edema. Left lower leg: No edema. Lymphadenopathy: Cervical: No cervical adenopathy. Skin: General: Skin is warm and dry. Capillary Refill: Capillary refill takes less than 2 seconds. Coloration: Skin is not jaundiced or pale. Findings: No bruising, erythema, lesion or rash. Neurological: General: No focal deficit present. Mental Status: She is alert and oriented to person, place, and time. Cranial Nerves: No cranial nerve deficit. Sensory: No sensory deficit. Motor: No weakness. Coordination: Coordination normal. Gait: Gait normal. Psychiatric: Mood and Affect: Mood normal. Behavior: Behavior normal. Thought Content: Thought content normal. Judgment: Judgment normal. Assessment and Plan ASSESSMENT/PLAN: 1. Lumbar pain - ICD9: 724.2, ICD10: M54.50 X 2 days Bilateral SI joint TTP. No red flags - KETOROLAC 60 MG/2 ML INTRAMUSCULAR SOLUTION-administered here in clinic RX Prednisone RX Flexeril Follow up with PCP Preethi Nagy APRN.GUN STRIPER documented in this encounter [facility] 11-21-2022 Note HNO ID: [id number] Author: Darius Miles APRN.TRINO Service: ? Author Type: Nurse Practitioner Type: Progress Notes Filed: 11/21/2022 4:42 PM Note Text: Subjective HPI Nontoxic-appearing female presents urgent care chief complaint nasal congestion. Chief complaint of upper respiratory tract like infection. Duration of symptoms 2 days. Associated symptoms sore throat, nasal congestion, nasal discharge and nonproductive cough. Patient denies the use of any [id number] medications or home remedies for symptom management. Patient states recent sick contacts with similar signs and symptoms. Patient denies any productive cough, fever, chest pain, shortness of breath, pleuritic pain, rash, abdominal pain, nausea, vomiting or change in bowel or bladder habit. .Patient presents with: Sore Throat: nasal congestion, bilateral ear pain, fever x 2 days History reviewed. No pertinent past medical history. History reviewed. No pertinent surgical history. ALLERGIES Delsym [Dextromethorphan Hbr] and Penicillins MEDICATIONS sertraline (ZOLOFT) 25 mg tablet 100 mg. 125mg total loperamide (IMODIUM) 2 mg cap(s) Take 1 capsule by mouth three times daily as needed for diarrhea for up to 14 days. LORATADINE ORAL Take by mouth. buPROPion XL (WELLBUTRIN XL) 150 mg 24 hr tablet TAKE 1 TABLET BY MOUTH EVERY DAY DO NOT CRUSH OR CHEW (Patient not taking: Reported on 11/21/2022) ondansetron orally disintegrating (ZOFRAN ODT) 4 mg disintegrating tablet Take 1 tablet by mouth every 6 hours as needed for nausea/vomiting. (Patient not taking: Reported on 08/29/2022) cyclobenzaprine (FLEXERIL) 10 mg tablet Take 1 tablet by mouth three times daily as needed for muscle spasm. (Patient not taking: Reported on 06/07/2022) predniSONE (DELTASONE) 10 mg tablet Take 4 tabs daily for 3 days, then 2 tabs daily for 3 days, then 1 tab daily for 3 days with food. (Patient not taking: Reported on 06/07/2022) benzonatate (TESSALON PERLE) 100 mg capsule Take 1 capsule by mouth three times daily as needed. (Patient not taking: Reported on 02/14/2021 ) predniSONE (DELTASONE) 10 mg tablet Take 4 tabs daily for 3 days, then 2 tabs daily for 3 days, then 1 tab daily for 3 days with food. permethrin (ELIMITE) 5 % cream Scabies: Apply cream from head to toe; leave on for 8-14 hours before washing off with water; for infants, also apply on the hairline, neck, scalp, alevism, and forehead; may reapply in 1 week if live mites appear. Amphetamine-Dextroamphetamine (ADDERALL XR) 25 mg 24 hr capsule Take 25 mg by mouth. (Patient not taking: Reported on 02/14/2021) dextroamphetamine-amphetamine (ADDERALL) 5 mg tablet Take 5 mg by mouth once daily. History reviewed. No pertinent family history. Social History Tobacco Use Smoking status: Never Smokeless tobacco: Never Substance Use Topics Alcohol use: Never Drug use: Never BP 100/64 Pulse 100 Temp 36.5 ?C (97.7 ?F) Resp 16 Wt 104.3 kg (230 lb) LMP 09/29/2022 SpO2 98% Review of Systems Constitutional: Positive for malaise/fatigue. Negative for chills and fever. HENT: Positive for congestion and ear pain. Negative for ear discharge, sinus pain and sore throat. Eyes: Negative for blurred vision, pain, discharge and redness. Respiratory: Negative for cough, hemoptysis, sputum production, shortness of breath, wheezing and stridor. Cardiovascular: Negative for chest pain. Gastrointestinal: Negative for abdominal pain, diarrhea, nausea and vomiting. Musculoskeletal: Positive for myalgias. Skin: Negative for itching and rash. Neurological: Negative for dizziness and headaches. Objective Physical Exam Constitutional: General: She is not in acute distress. Appearance: She is not diaphoretic. HENT: Head: Normocephalic. Right Ear: Tympanic membrane, ear canal and external ear normal. Left Ear: Tympanic membrane, ear canal and external ear normal. Nose: Congestion present. Mouth/Throat: Mouth: Mucous membranes are moist. Pharynx: Oropharynx is clear. No oropharyngeal exudate or posterior oropharyngeal erythema. Eyes: Conjunctiva/sclera: Conjunctivae normal. Pupils: Pupils are equal, round, and reactive to light. Cardiovascular: Rate and Rhythm: Normal rate and regular rhythm. Heart sounds: Normal heart sounds. Pulmonary: Effort: Pulmonary effort is normal. No tachypnea, accessory muscle usage or respiratory distress. Breath sounds: Normal breath sounds. No stridor. No wheezing, rhonchi or rales. Abdominal: Palpations: Abdomen is soft. Tenderness: There is no abdominal tenderness. Musculoskeletal: Cervical back: Normal range of motion and neck supple. No rigidity or tenderness. Lymphadenopathy: Cervical: No cervical adenopathy. Skin: General: Skin is warm and dry. Neurological: Mental Status: She is alert and oriented to person, place, and time. ASSESSMENT/PLAN: 1. Sore throat - ICD9: 462, ICD10: J0 (more content not included)... [facility] 10-21-2022 Note HNO ID: [id number] Author: Juli Magaña APRN.GUN STRIPER Service: ? Author Type: Nurse Practitioner Type: Progress Notes Filed: 10/21/2022 10:44 AM Note Text: Subjective HPI Rakel presents today with compaint of sorethroat x two days had a fever yesterday. 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 No past surgical history on file. ALLERGIES Delsym [Dextromethorphan Hbr] and Penicillins MEDICATIONS buPROPion XL (WELLBUTRIN XL) 150 mg 24 hr tablet TAKE 1 TABLET BY MOUTH EVERY DAY DO NOT CRUSH OR CHEW sertraline (ZOLOFT) 25 mg tablet 100 mg. 75mg LORATADINE ORAL Take by mouth. azithromycin (ZITHROMAX) 500 mg tablet Take 1 tablet by mouth once daily for 5 days. ondansetron orally disintegrating (ZOFRAN ODT) 4 mg disintegrating tablet Take 1 tablet by mouth every 6 hours as needed for nausea/vomiting. (Patient not taking: Reported on 08/29/2022) cyclobenzaprine (FLEXERIL) 10 mg tablet Take 1 tablet by mouth three times daily as needed for muscle spasm. (Patient not taking: Reported on 06/07/2022) predniSONE (DELTASONE) 10 mg tablet Take 4 tabs daily for 3 days, then 2 tabs daily for 3 days, then 1 tab daily for 3 days with food. (Patient not taking: Reported on 06/07/2022) loperamide (IMODIUM) 2 mg cap(s) Take 1 capsule by mouth three times daily as needed for diarrhea for up to 14 days. benzonatate (TESSALON PERLE) 100 mg capsule Take 1 capsule by mouth three times daily as needed. (Patient not taking: Reported on 02/14/2021 ) predniSONE (DELTASONE) 10 mg tablet Take 4 tabs daily for 3 days, then 2 tabs daily for 3 days, then 1 tab daily for 3 days with food. permethrin (ELIMITE) 5 % cream Scabies: Apply cream from head to toe; leave on for 8-14 hours before washing off with water; for infants, also apply on the hairline, neck, scalp, alevism, and forehead; may reapply in 1 week if live mites appear. Amphetamine-Dextroamphetamine (ADDERALL XR) 25 mg 24 hr capsule Take 25 mg by mouth. (Patient not taking: Reported on 02/14/2021) dextroamphetamine-amphetamine (ADDERALL) 5 mg tablet Take 5 mg by mouth once daily. No family history on file. Social History Tobacco Use Smoking status: Never Smokeless tobacco: Never Substance Use Topics Alcohol use: Never Drug use: Never Review of Systems Constitutional: Positive for fever. HENT: Positive for ear pain and sore throat. Objective Physical Exam Vitals and nursing note reviewed. Constitutional: Appearance: Normal appearance. HENT: Head: Normocephalic and atraumatic. Right Ear: Tympanic membrane and ear canal normal. Left Ear: Tympanic membrane and ear canal normal. Nose: Nose normal. Mouth/Throat: Mouth: Mucous membranes are dry. Pharynx: Posterior oropharyngeal erythema present. No oropharyngeal exudate. Eyes: Extraocular Movements: Extraocular movements intact. Pupils: Pupils are equal, round, and reactive to light. Neck: Vascular: No carotid bruit. Cardiovascular: Rate and Rhythm: Normal rate and regular rhythm. Pulses: Normal pulses. Heart sounds: Normal heart sounds. No murmur heard. Pulmonary: Effort: Pulmonary effort is normal. Breath sounds: Normal breath sounds. Abdominal: General: Abdomen is flat. Palpations: Abdomen is soft. Musculoskeletal: General: Normal range of motion. Cervical back: Normal range of motion and neck supple. No rigidity or tenderness. Lymphadenopathy: Cervical: No cervical adenopathy. Skin: General: Skin is warm. Capillary Refill: Capillary refill takes less than 2 seconds. Neurological: General: No focal deficit present. Mental Status: She is alert. ASSESSMENT/PLAN: 1. Sore throat - ICD9: 462, ICD10: J02.9 - Rapid Strep positive in the office today - antibiotic as written and Zithromax for PCN allergy. - Contagious dz precautions discussed- including considered contagious until on antibiotics for 24 hours - The patient should follow up in 3-5 days if symptoms persist or worsen - Call back if drooling, increased temperature, symptoms of dehydration and/or still sick in one week - STREP A MOLECULAR (POC) Juli Magaña APRN.[employer] [facility] 08-29-2022 Note HNO ID: [id number] Author: Maynor Calles APRN.[employer] Service: ? Author Type: Nurse Practitioner Type: Progress Notes Filed: 08/29/2022 7:48 PM Note Text: Subjective HPI HPI Rakel Eaton is a 21 year old female who presents today for CC of left foot/ankle pain after tripping today. Has tried nothing for relief. Symptoms are worsened by walking. Hx of fx to left ankle in past. Denies numbness/tingling of left lower extremity. Denies possibility of being . .Patient presents with: Pain (foot): left foot pain and bruising x 1 day, tripped over baby toy No past medical history on file. No past surgical history on file. ALLERGIES Delsym [Dextromethorphan Hbr] and Penicillins MEDICATIONS sertraline (ZOLOFT) 25 mg tablet 100 mg. 75mg LORATADINE ORAL Take by mouth. buPROPion XL (WELLBUTRIN XL) 150 mg 24 hr tablet TAKE 1 TABLET BY MOUTH EVERY DAY DO NOT CRUSH OR CHEW ondansetron orally disintegrating (ZOFRAN ODT) 4 mg disintegrating tablet Take 1 tablet by mouth every 6 hours as needed for nausea/vomiting. (Patient not taking: Reported on 08/29/2022) cyclobenzaprine (FLEXERIL) 10 mg tablet Take 1 tablet by mouth three times daily as needed for muscle spasm. (Patient not taking: Reported on 06/07/2022) predniSONE (DELTASONE) 10 mg tablet Take 4 tabs daily for 3 days, then 2 tabs daily for 3 days, then 1 tab daily for 3 days with food. (Patient not taking: Reported on 06/07/2022) loperamide (IMODIUM) 2 mg cap(s) Take 1 capsule by mouth three times daily as needed for diarrhea for up to 14 days. benzonatate (TESSALON PERLE) 100 mg capsule Take 1 capsule by mouth three times daily as needed. (Patient not taking: Reported on 02/14/2021 ) predniSONE (DELTASONE) 10 mg tablet Take 4 tabs daily for 3 days, then 2 tabs daily for 3 days, then 1 tab daily for 3 days with food. permethrin (ELIMITE) 5 % cream Scabies: Apply cream from head to toe; leave on for 8-14 hours before washing off with water; for infants, also apply on the hairline, neck, scalp, alevism, and forehead; may reapply in 1 week if live mites appear. Amphetamine-Dextroamphetamine (ADDERALL XR) 25 mg 24 hr capsule Take 25 mg by mouth. (Patient not taking: Reported on 02/14/2021) dextroamphetamine-amphetamine (ADDERALL) 5 mg tablet Take 5 mg by mouth once daily. No family history on file. Social History Tobacco Use Smoking status: Never Smokeless tobacco: Never Substance Use Topics Alcohol use: Never Drug use: Never ROS Objective Blood pressure 124/72, pulse 70, temperature 37.8 ?C (100.1 ?F), resp. rate 16, weight 104.8 kg (231 lb), last menstrual period 07/30/2022, SpO2 100 %. Physical Exam Constitutional: General: She is not in acute distress. Appearance: She is not toxic-appearing or diaphoretic. HENT: Head: Normocephalic and atraumatic. Cardiovascular: Pulses: Dorsalis pedis pulses are 2+ on the left side. Posterior tibial pulses are 2+ on the left side. Pulmonary: Effort: Pulmonary effort is normal. No accessory muscle usage or respiratory distress. Musculoskeletal: Left ankle: Swelling present. No deformity, ecchymosis or lacerations. Tenderness present over the lateral malleolus. Normal range of motion. Left Achilles Tendon: Normal. Left foot: Normal range of motion. Swelling and tenderness present. No deformity, bunion, Charcot foot, foot drop, prominent metatarsal heads or laceration. Legs: Neurological: Mental Status: She is alert and oriented to person, place, and time. ASSESSMENT/PLAN: 1. Lower extremity injury, left, initial encounter - ICD9: 959.7, ICD10: S89.92XA -no bony abnormality noted on xray -libertad wrap and crutches provided. -Rest, Ice, Compression, Elevation discussed -discussed use of ibuprofen -follow up with primary care if symptoms persist/worsen in 10-14 days - XR ANKLE GENERAL 3V AP/LAT/OBL LEFT - XR FOOT GENERAL 3V AP/LAT/OBL LEFT IMPRESSION: Negative Dictated by : MD Maynor COELLO APRN.[employer] [facility] 08-29-2022 Note HNO ID: [id number] Author: RT Tamera(R) Service: Radiology Author Type: Technologist Type: Progress Notes Filed: 08/29/2022 7:32 PM Note Text: Radiology Service Progress Note PATIENT NAME: Rakel Eaton DATE OF SERVICE: August 29, 2022 TIME: 7:21 PM PATIENT IDENTITY VERIFICATION COMPLETED USING TWO (2) IDENTIFIERS: Name and Date of confirmed by patient verbally. FALL SCREENING: Has the patient had 2 falls in the last year or 1 fall with injury or currently using an Ambulatory Assistive Device (Walker, Cane, Wheelchair, Crutches, etc.)? No PATIENT GENDER DATA: Female. status: : No status: NO. PATIENT RELEVANT IMPLANT DATA REVIEWED: Yes RADIOLOGY DEPARTMENT: General X-ray: Exam(s) Completed: Lower Extremity X-Ray(s): Ankle, Left and Wt. Bearing and Foot, Left and Wt. Bearing PERIPHERAL IV DATA: Not applicable SIGNED BY: Marcy Christy RT(R) August 29, 2022 7:21 PM [facility] 08-29-2022 History of Present illness Narrative Formatting of this note is different fro m the original. Images from the original note were not included. Subjective HPI HPI Rakel Eaton is a 21 year old female who presents today for CC of left foot/ankle pain after tripping today. Has tried nothing for relief. Symptoms are worsened by walking. Hx of fx to left ankle in past. Denies numbness/tingling of left lower extremity. Denies possibility of being . .Patient presents with: Pain (foot): left foot pain and bruising x 1 day, tripped over baby toy No past medical history on file. No past surgical history on file. ALLERGIES Delsym [Dextromethorphan Hbr] and Penicillins MEDICATIONS sertraline (ZOLOFT) 25 mg tablet 100 mg. 75mg LORATADINE ORAL Take by mouth. buPROPion XL (WELLBUTRIN XL) 150 mg 24 hr tablet TAKE 1 TABLET BY MOUTH EVERY DAY DO NOT CRUSH OR CHEW ondansetron orally disintegrating (ZOFRAN ODT) 4 mg disintegrating tablet Take 1 tablet by mouth every 6 hours as needed for nausea/vomiting. (Patient not taking: Reported on 08/29/2022) cyclobenzaprine (FLEXERIL) 10 mg tablet Take 1 tablet by mouth three times daily as needed for muscle spasm. (Patient not taking: Reported on 06/07/2022) predniSONE (DELTASONE) 10 mg tablet Take 4 tabs daily for 3 days, then 2 tabs daily for 3 days, then 1 tab daily for 3 days with food. (Patient not taking: Reported on 06/07/2022) loperamide (IMODIUM) 2 mg cap(s) Take 1 capsule by mouth three times daily as needed for diarrhea for up to 14 days. benzonatate (TESSALON PERLE) 100 mg capsule Take 1 capsule by mouth three times daily as needed. (Patient not taking: Reported on 02/14/2021 ) predniSONE (DELTASONE) 10 mg tablet Take 4 tabs daily for 3 days, then 2 tabs daily for 3 days, then 1 tab daily for 3 days with food. permethrin (ELIMITE) 5 % cream Scabies: Apply cream from head to toe; leave on for 8-14 hours before washing off with water; for infants, also apply on the hairline, neck, scalp, alevism, and forehead; may reapply in 1 week if live mites appear. Amphetamine-Dextroamphetamine (ADDERALL XR) 25 mg 24 hr capsule Take 25 mg by mouth. (Patient not taking: Reported on 02/14/2021) dextroamphetamine-amphetamine (ADDERALL) 5 mg tablet Take 5 mg by mouth once daily. No family history on file. Social History Tobacco Use Smoking status: Never Smokeless tobacco: Never Substance Use Topics Alcohol use: Never Drug use: Never ROS Objective Blood pressure 124/72, pulse 70, temperature 37.8 C (100.1 F), resp. rate 16, weight 104.8 kg (231 lb), last menstrual period 07/30/2022, SpO2 100 %. Physical Exam Constitutional: General: She is not in acute distress. Appearance: She is not toxic-appearing or diaphoretic. HENT: Head: Normocephalic and atraumatic. Cardiovascular: Pulses: Dorsalis pedis pulses are 2+ on the left side. Posterior tibial pulses are 2+ on the left side. Pulmonary: Effort: Pulmonary effort is normal. No accessory muscle usage or respiratory distress. Musculoskeletal: Left ankle: Swelling present. No deformity, ecchymosis or lacerations. Tenderness present over the lateral malleolus. Normal range of motion. Left Achilles Tendon: Normal. Left foot: Normal range of motion. Swelling and tenderness present. No deformity, bunion, Charcot foot, foot drop, prominent metatarsal heads or laceration. Legs: Neurological: Mental Status: She is alert and oriented to person, place, and time. ASSESSMENT/PLAN: 1. Lower extremity injury, left, initial encounter - ICD9: 959.7, ICD10: S89.92XA -no bony abnormality noted on xray -libertad wrap and crutches provided. -Rest, Ice, Compression, Elevation discussed -discussed use of ibuprofen -follow up with primary care if symptoms persist/worsen in 10-14 days - XR ANKLE GENERAL 3V AP/LAT/OBL LEFT - XR FOOT GENERAL 3V AP/LAT/OBL LEFT IMPRESSION: Negative Dictated by : MD Maynor COELLO APRN.[employer] documented in this encounter [facility] 08-03-2022 Note HNO ID: [id number] Author: Odalis Campo PA-C Service: ? Author Type: Physician [employer] Manager Type: Progress Notes Filed: 08/03/2022 6:28 PM Note Text: This note was created using [employer]. Subjective Rakel Eaton is a 21 year old female. HPI Patient presents with sore throat over the past day. She feels like her throat is swollen. 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 No fever. She did vomit once this morning. Denies runny nose or cough. No ear pain. Review of Systems Constitutional: Negative. HENT: Positive for congestion and sore throat. Negative for ear pain and rhinorrhea. Respiratory: Negative for cough. Cardiovascular: Negative. Gastrointestinal: Negative. Genitourinary: Negative. Musculoskeletal: Negative. Neurological: Negative. Hematological: Negative. Psychiatric/Behavioral: Negative. All other systems reviewed and are negative. No past medical history on file. Current Outpatient Medications Medication Sig Dispense Refill ondansetron orally disintegrating (ZOFRAN ODT) 4 mg disintegrating tablet Take 1 tablet by mouth every 6 hours as needed for nausea/vomiting. 15 tablet 0 sertraline (ZOLOFT) 25 mg tablet 100 mg. 75mg LORATADINE ORAL Take by mouth. cephALEXin (KEFLEX) 500 mg capsule Take 1 capsule by mouth twice daily for 10 days. 20 capsule 0 cyclobenzaprine (FLEXERIL) 10 mg tablet Take 1 tablet by mouth three times daily as needed for muscle spasm. (Patient not taking: Reported on 06/07/2022) 18 tablet 0 predniSONE (DELTASONE) 10 mg tablet Take 4 tabs daily for 3 days, then 2 tabs daily for 3 days, then 1 tab daily for 3 days with food. (Patient not taking: Reported on 06/07/2022) 21 tablet 0 loperamide (IMODIUM) 2 mg cap(s) Take 1 capsule by mouth three times daily as needed for diarrhea for up to 14 days. 30 capsule 0 benzonatate (TESSALON PERLE) 100 mg capsule Take 1 capsule by mouth three times daily as needed. (Patient not taking: Reported on 02/14/2021 ) 30 capsule 0 predniSONE (DELTASONE) 10 mg tablet Take 4 tabs daily for 3 days, then 2 tabs daily for 3 days, then 1 tab daily for 3 days with food. 21 tablet 0 permethrin (ELIMITE) 5 % cream Scabies: Apply cream from head to toe; leave on for 8-14 hours before washing off with water; for infants, also apply on the hairline, neck, scalp, alevism, and forehead; may reapply in 1 week if live mites appear. 1 Bottle 1 Amphetamine-Dextroamphetamine (ADDERALL XR) 25 mg 24 hr capsule Take 25 mg by mouth. (Patient not taking: Reported on 02/14/2021) dextroamphetamine-amphetamine (ADDERALL) 5 mg tablet Take 5 mg by mouth once daily. No current facility-administered medications for this visit. No past surgical history on file. No family history on file. Social History Tobacco Use Smoking status: Never Smokeless tobacco: Never Substance Use Topics Alcohol use: Never Drug use: Never Objective BP 128/66 Pulse 85 Temp 36.9 ?C (98.5 ?F) (Tympanic) Resp 18 Wt 103 kg (227 lb) LMP 07/30/2022 (Exact Date) SpO2 99% Physical Exam Vitals reviewed. Constitutional: Appearance: Normal appearance. HENT: Head: Normocephalic and atraumatic. Right Ear: Tympanic membrane, ear canal and external ear normal. Left Ear: Tympanic membrane, ear canal and external ear normal. Nose: Nose normal. Mouth/Throat: Mouth: Mucous membranes are moist. Pharynx: Uvula midline. Pharyngeal swelling and posterior oropharyngeal erythema present. No oropharyngeal exudate or uvula swelling. Tonsils: No tonsillar exudate or tonsillar abscesses. 3+ on the right. 3+ on the left. Cardiovascular: Rate and Rhythm: Normal rate and regular rhythm. Heart sounds: Normal heart sounds. Pulmonary: Effort: Pulmonary effort is normal. Breath sounds: Normal breath sounds. Musculoskeletal: Cervical back: Neck supple. Lymphadenopathy: Cervical: Cervical adenopathy present. Skin: General: Skin is warm and dry. Neurological: General: No focal deficit present. Mental Status: She is alert. Assessment and Plan ASSESSMENT/PLAN: 1. Strep pharyngitis - ICD9: 034.0, ICD10: J02.0 - Alere Strep Test positive, no culture pending - keflex rx due to pcn allergy, has tolerated previously - Discussed supportive care treatment with fluids, rest and analgesia. - Contagious dz precautions discussed- including considered contagious until on antibiotics for 24 hours - The patient should follow up in 3-5 days if symptoms persist or worsen - STREP A MOLECULAR (POC) Odalis Campo PA-C [facility] 06-21-2022 Note HNO ID: [id number] Author: Maynor Calles APRN.[employer] Service: ? Author Type: Nurse Practitioner Type: Progress Notes Filed: 06/21/2022 10:39 AM Note Text: Subjective HPI HPI Rakel Eaton is a 21 year old female who presents today for CC of vomiting, diarrhea, congestion. This started 1 day ago. Has tried nothing for relief. Symptoms are worsened by nothing. Risk factors sick exposures at home and work. Denies possibility of being . Denies abd pain/blood in vomit/stool. .Patient presents with: Diarrhea: Diarrhea x 1 day and vomiting and congestion started this am History reviewed. No pertinent past medical history. No past surgical history on file. ALLERGIES Delsym [Dextromethorphan Hbr] and Penicillins MEDICATIONS sertraline (ZOLOFT) 25 mg tablet 100 mg. 75mg LORATADINE ORAL Take by mouth. ondansetron orally disintegrating (ZOFRAN ODT) 4 mg disintegrating tablet Take 1 tablet by mouth every 6 hours as needed for nausea/vomiting. cyclobenzaprine (FLEXERIL) 10 mg tablet Take 1 tablet by mouth three times daily as needed for muscle spasm. (Patient not taking: Reported on 06/07/2022) predniSONE (DELTASONE) 10 mg tablet Take 4 tabs daily for 3 days, then 2 tabs daily for 3 days, then 1 tab daily for 3 days with food. (Patient not taking: Reported on 06/07/2022) loperamide (IMODIUM) 2 mg cap(s) Take 1 capsule by mouth three times daily as needed for diarrhea for up to 14 days. benzonatate (TESSALON PERLE) 100 mg capsule Take 1 capsule by mouth three times daily as needed. (Patient not taking: Reported on 02/14/2021 ) predniSONE (DELTASONE) 10 mg tablet Take 4 tabs daily for 3 days, then 2 tabs daily for 3 days, then 1 tab daily for 3 days with food. permethrin (ELIMITE) 5 % cream Scabies: Apply cream from head to toe; leave on for 8-14 hours before washing off with water; for infants, also apply on the hairline, neck, scalp, alevism, and forehead; may reapply in 1 week if live mites appear. Amphetamine-Dextroamphetamine (ADDERALL XR) 25 mg 24 hr capsule Take 25 mg by mouth. (Patient not taking: Reported on 02/14/2021) dextroamphetamine-amphetamine (ADDERALL) 5 mg tablet Take 5 mg by mouth once daily. No family history on file. Social History Tobacco Use Smoking status: Never Smokeless tobacco: Never Substance Use Topics Alcohol use: Never Drug use: Never Review of Systems Constitutional: Negative for fever. HENT: Positive for congestion. Negative for ear pain, nosebleeds and sore throat. Respiratory: Negative for cough, shortness of breath and wheezing. Cardiovascular: Negative for chest pain. Gastrointestinal: Positive for diarrhea, nausea and vomiting. Negative for abdominal pain, blood in stool and constipation. Musculoskeletal: Negative for neck pain. Skin: Negative for itching and rash. Objective Blood pressure 112/80, pulse 90, temperature 36.7 ?C (98.1 ?F), temperature source Tympanic, resp. rate 18, weight 101.5 kg (223 lb 12.8 oz), last menstrual period 05/03/2022, SpO2 97 %. ] Physical Exam Constitutional: General: She is not in acute distress. Appearance: She is not toxic-appearing or diaphoretic. HENT: Head: Normocephalic and atraumatic. Cardiovascular: Rate and Rhythm: Normal rate and regular rhythm. Heart sounds: Normal heart sounds, S1 normal and S2 normal. Pulmonary: Effort: Pulmonary effort is normal. Breath sounds: Normal breath sounds. Abdominal: General: Bowel sounds are normal. Palpations: Abdomen is soft. There is no hepatomegaly or splenomegaly. Tenderness: There is no abdominal tenderness. Neurological: Mental Status: She is alert and oriented to person, place, and time. Gait: Gait is intact. ASSESSMENT/PLAN: 1. Viral syndrome - ICD9: 079.99, ICD10: B34.9 - Discussed viral etiology and rationale for treatment. - Symptomatic treatment with prn analgesia - Supportive care with fluids and rest - Follow up in 3-5 days if symptoms persist or sooner if worsening of symptoms -Discussed gentle rehydration -BRAT Diet (Bananas, Rice, Apple Sauce, [place]) -If no better in 3-5 days follow up back in clinic or with primary care provider -Follow up in the ER with signs of dehydration, increasing abdominal pain, high fever, or blood in vomit or stool. - ONDANSETRON 4 MG DISINTEGRATING TABLET Maynor Calles APRN.[facility] 06-21-2022 History of Present illness Narrative Formatting of this note is different fro m the original. Subjective HPI HPI Rakle Eaton is a 21 year old female who presents today for CC of vomiting, diarrhea, congestion. This started 1 day ago. Has tried nothing for relief. Symptoms are worsened by nothing. Risk factors sick exposures at home and work. Denies possibility of being . Denies abd pain/blood in vomit/stool. .Patient presents with: Diarrhea: Diarrhea x 1 day and vomiting and congestion started this am History reviewed. No pertinent past medical history. No past surgical history on file. ALLERGIES Delsym [Dextromethorphan Hbr] and Penicillins MEDICATIONS sertraline (ZOLOFT) 25 mg tablet 100 mg. 75mg LORATADINE ORAL Take by mouth. ondansetron orally disintegrating (ZOFRAN ODT) 4 mg disintegrating tablet Take 1 tablet by mouth every 6 hours as needed for nausea/vomiting. cyclobenzaprine (FLEXERIL) 10 mg tablet Take 1 tablet by mouth three times daily as needed for muscle spasm. (Patient not taking: Reported on 06/07/2022) predniSONE (DELTASONE) 10 mg tablet Take 4 tabs daily for 3 days, then 2 tabs daily for 3 days, then 1 tab daily for 3 days with food. (Patient not taking: Reported on 06/07/2022) loperamide (IMODIUM) 2 mg cap(s) Take 1 capsule by mouth three times daily as needed for diarrhea for up to 14 days. benzonatate (TESSALON PERLE) 100 mg capsule Take 1 capsule by mouth three times daily as needed. (Patient not taking: Reported on 02/14/2021 ) predniSONE (DELTASONE) 10 mg tablet Take 4 tabs daily for 3 days, then 2 tabs daily for 3 days, then 1 tab daily for 3 days with food. permethrin (ELIMITE) 5 % cream Scabies: Apply cream from head to toe; leave on for 8-14 hours before washing off with water; for infants, also apply on the hairline, neck, scalp, alevism, and forehead; may reapply in 1 week if live mites appear. Amphetamine-Dextroamphetamine (ADDERALL XR) 25 mg 24 hr capsule Take 25 mg by mouth. (Patient not taking: Reported on 02/14/2021) dextroamphetamine-amphetamine (ADDERALL) 5 mg tablet Take 5 mg by mouth once daily. No family history on file. Social History Tobacco Use Smoking status: Never Smokeless tobacco: Never Substance Use Topics Alcohol use: Never Drug use: Never Review of Systems Constitutional: Negative for fever. HENT: Positive for congestion. Negative for ear pain, nosebleeds and sore throat. Respiratory: Negative for cough, shortness of breath and wheezing. Cardiovascular: Negative for chest pain. Gastrointestinal: Positive for diarrhea, nausea and vomiting. Negative for abdominal pain, blood in stool and constipation. Musculoskeletal: Negative for neck pain. Skin: Negative for itching and rash. Objective Blood pressure 112/80, pulse 90, temperature 36.7 C (98.1 F), temperature source Tympanic, resp. rate 18, weight 101.5 kg (223 lb 12.8 oz), last menstrual period 05/03/2022, SpO2 97 %. ] Physical Exam Constitutional: General: She is not in acute distress. Appearance: She is not toxic-appearing or diaphoretic. HENT: Head: Normocephalic and atraumatic. Cardiovascular: Rate and Rhythm: Normal rate and regular rhythm. Heart sounds: Normal heart sounds, S1 normal and S2 normal. Pulmonary: Effort: Pulmonary effort is normal. Breath sounds: Normal breath sounds. Abdominal: General: Bowel sounds are normal. Palpations: Abdomen is soft. There is no hepatomegaly or splenomegaly. Tenderness: There is no abdominal tenderness. Neurological: Mental Status: She is alert and oriented to person, place, and time. Gait: Gait is intact. ASSESSMENT/PLAN: 1. Viral syndrome - ICD9: 079.99, ICD10: B34.9 - Discussed viral etiology and rationale for treatment. - Symptomatic treatment with prn analgesia - Supportive care with fluids and rest - Follow up in 3-5 days if symptoms persist or sooner if worsening of symptoms -Discussed gentle rehydration -BRAT Diet (Bananas, Rice, Apple Sauce, [place]) -If no better in 3-5 days follow up back in clinic or with primary care provider -Follow up in the ER with signs of dehydration, increasing abdominal pain, high fever, or blood in vomit or stool. - ONDANSETRON 4 MG DISINTEGRATING TABLET Maynor Calles APRN.G[employer]ER documented in this encounter [facility] 06-07-2022 History of Present illness Narrative Formatting of this note is different fro m the original. This note was created using [employer]. Subjective Rakel Eaton is a 21 year old female. 21 year old female with no PMH presents for complaints of illness Acute onset 4 days ago +sore throat +right ear pain. Denies accompanying URI sx. Denies skin rash or lesions Denies SOB or dyspnea Denies CP Denies ill contacts Denies using homeopathic or OTC medications [employer]. The history is provided by the patient. No language path was used. Sore Throat This is a new problem. The current episode started in the past 7 days. The problem has been unchanged. Neither side of throat is experiencing more pain than the other. There has been no fever. The pain is at a severity of 5/10. Associated symptoms include ear pain. Pertinent negatives include no abdominal pain, congestion, coughing, diarrhea, drooling, ear discharge, headaches, hoarse voice, plugged ear sensation, neck pain, shortness of breath, stridor, swollen glands, trouble swallowing or vomiting. She has had no exposure to strep or mono. She has tried nothing for the symptoms. The treatment provided no relief. No past medical history on file. No past surgical history on file. ALLERGIES Delsym [Dextromethorphan Hbr] and Penicillins MEDICATIONS sertraline (ZOLOFT) 25 mg tablet 100 mg. 75mg LORATADINE ORAL Take by mouth. azithromycin (ZITHROMAX) 250 mg tablet Take 2 tablets by mouth once daily for 1 day, THEN 1 tablet once daily for 4 days. cyclobenzaprine (FLEXERIL) 10 mg tablet Take 1 tablet by mouth three times daily as needed for muscle spasm. (Patient not taking: Reported on 06/07/2022) predniSONE (DELTASONE) 10 mg tablet Take 4 tabs daily for 3 days, then 2 tabs daily for 3 days, then 1 tab daily for 3 days with food. (Patient not taking: Reported on 06/07/2022) loperamide (IMODIUM) 2 mg cap(s) Take 1 capsule by mouth three times daily as needed for diarrhea for up to 14 days. benzonatate (TESSALON PERLE) 100 mg capsule Take 1 capsule by mouth three times daily as needed. (Patient not taking: Reported on 02/14/2021 ) predniSONE (DELTASONE) 10 mg tablet Take 4 tabs daily for 3 days, then 2 tabs daily for 3 days, then 1 tab daily for 3 days with food. permethrin (ELIMITE) 5 % cream Scabies: Apply cream from head to toe; leave on for 8-14 hours before washing off with water; for infants, also apply on the hairline, neck, scalp, alevism, and forehead; may reapply in 1 week if live mites appear. Amphetamine-Dextroamphetamine (ADDERALL XR) 25 mg 24 hr capsule Take 25 mg by mouth. (Patient not taking: Reported on 02/14/2021) dextroamphetamine-amphetamine (ADDERALL) 5 mg tablet Take 5 mg by mouth once daily. No family history on file. Social History Tobacco Use Smoking status: Never Smokeless tobacco: Never Substance Use Topics Alcohol use: Never Drug use: Never Review of Systems Constitutional: Negative for activity change, appetite change, chills, diaphoresis, fatigue and fever. HENT: Positive for ear pain and sore throat. Negative for congestion, drooling, ear discharge, hoarse voice, nosebleeds, postnasal drip, rhinorrhea, sinus pain and trouble swallowing. Eyes: Negative for pain, discharge, redness and itching. Respiratory: Negative for apnea, cough, chest tightness, shortness of breath and stridor. Cardiovascular: Negative for chest pain, palpitations and leg swelling. Gastrointestinal: Negative for abdominal pain, diarrhea, nausea and vomiting. Musculoskeletal: Negative for arthralgias, back pain and neck pain. Skin: Negative for color change, pallor and rash. Allergic/Immunologic: Negative for environmental allergies, food allergies and immunocompromised state. Neurological: Negative for dizziness, facial asymmetry and headaches. Hematological: Negative for adenopathy. Does not bruise/bleed easily. Psychiatric/Behavioral: Negative for agitation and behavioral problems. Objective BP 128/82 Pulse 80 Temp 36.5 C (97.7 F) Resp 21 Wt 103.1 kg (227 lb 3.2 oz) LMP 05/03/2022 (Exact Date) SpO2 97% Physical Exam Vitals and nursing note reviewed. Constitutional: General: She is not in acute distress. Appearance: Normal appearance. She is normal weight. She is not ill-appearing, toxic-appearing or diaphoretic. HENT: Head: Normocephalic and atraumatic. Right Ear: Ear canal and external ear normal. Left Ear: Ear canal and external ear normal. Nose: Nose normal. No congestion or rhinorrhea. Mouth/Throat: Mouth: Mucous membranes are moist. Pharynx: Posterior oropharyngeal erythema (marked posterior erythema. Tonsils 2 + Exudate noted) present. No oropharyngeal exudate. Eyes: General: Right eye: No discharge. Left eye: No discharge. Extraocular Movements: Extraocular movements intact. Conjunctiva/sclera: Conjunctivae normal. Pupils: Pupils are equal, round, and reactive to light. Cardiovascular: Rate and Rhythm: Normal rate and regular rhythm. Pulses: Normal pulses. Heart sounds: Normal heart sounds. No murmur heard. No friction rub. Pulmonary: Effort: Pulmonary effort is normal. No respiratory distress. Breath sounds: Normal breath sounds. No stridor. No wheezing, rhonchi or rales. Chest: Chest wall: No tenderness. Abdominal: General: Abdomen is flat. There is no distension. Palpations: Abdomen is soft. There is no mass. Tenderness: There is no abdominal tenderness. There is no right CVA tenderness, left CVA tenderness, guarding or rebound. Hernia: No hernia is present. Musculoskeletal: General: No swelling, tenderness, deformity or signs of injury. Normal range of motion. Cervical back: Normal range of motion and neck supple. No rigidity. Right lower leg: No edema. Left lower leg: No edema. Lymphadenopathy: Cervical: No cervical adenopathy. Skin: General: Skin is warm and dry. Coloration: Skin is not jaundiced or pale. Findings: No bruising, erythema, lesion or rash. Neurological: General: No focal deficit present. Mental Status: She is alert and oriented to person, place, and time. Cranial Nerves: No cranial nerve deficit. Sensory: No sensory deficit. Motor: No weakness. Coordination: Coordination normal. Gait: Gait normal. Psychiatric: Mood and Affect: Mood normal. Behavior: Behavior normal. Thought Content: Thought content normal. Judgment: Judgment normal. Assessment and Plan ASSESSMENT/PLAN: 1. Pharyngitis, unspecified etiology - ICD9: 462, ICD10: J02.9 (primary diagnosis) - suspect viral - Alere Strep Test NEGATIVE, no culture pending - Discussed supportive care treatment with fluids, rest and analgesia. - The patient may also use OTC cough and cold meds as needed and warm salt water gargles, throat lozenges and/or OTC throat spray as needed. - Contagious dz precautions discussed- including considered contagious until on antibiotics for 24 hours - The patient should follow up in 3-5 days if symptoms persist or worsen - Call back if drooling, increased temperature, symptoms of dehydration and/or still sick in one week - STREP A MOLECULAR (POC) 2. Acute otitis media, left - ICD9: 382.9, ICD10: H66.92 - Will begin treatment with as per antibiotic as written, see orders - The patient should also be given OTC cough and cold meds as needed, warm salt water gargles, throat lozenges and/or OTC throat spray as needed, and nasal saline gtts and suction prn for the first 5-7 days of treatment. - Supportive care with plenty of fluids, rest, and analgesia prn. - Follow up in 3-5 days if symptoms persist or worsen. Preethi Nagy APRN.GUN [employer] documented in this encounter [facility] 05-30-2022 SARS-CoV-2 (COVID-19) RNA WILDER+probe Ql (Nph) Negative *NA* (05/30/22 2:22 PM) AO Auto Urine SS 05-11-2022 History of Present illness Narrative Formatting of this note is different fro m the original. This note was created using Medical Referral Sour[employer]. Subjective Rakel Eaton is a 21 year old female. 21 year old female with PMH anxiety presents for complaints of back pain. Acute onset yesterday upon awakening. Endorses woke up with pain in upper mid back. 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 The history is provided by the patient. No language path was used. Back Pain This is a new problem. The current episode started yesterday. The problem occurs constantly. The problem has not changed since onset.The pain is associated with no known injury. The pain is present in the thoracic spine. The quality of the pain is described as cramping and aching. The pain does not radiate. The pain is at a severity of 7/10. The pain is moderate. The symptoms are aggravated by bending and twisting. The pain is The same all the time. Stiffness is present All day. Pertinent negatives include no chest pain, no fever, no numbness, no weight loss, no headaches, no abdominal pain, no abdominal swelling, no bowel incontinence, no perianal numbness, no bladder incontinence, no dysuria, no pelvic pain, no leg pain, no paresthesias, no paresis, no tingling and no weakness. She has tried nothing for the symptoms. The treatment provided no relief. Risk factors include obesity, lack of exercise and poor posture. No past medical history on file. No past surgical history on file. ALLERGIES Delsym [Dextromethorphan Hbr] and Penicillins MEDICATIONS benzonatate (TESSALON PERLE) 100 mg capsule Take 1 capsule by mouth three times daily as needed for up to 10 days. LORATADINE ORAL Take by mouth. cyclobenzaprine (FLEXERIL) 10 mg tablet Take 1 tablet by mouth three times daily as needed for muscle spasm. predniSONE (DELTASONE) 10 mg tablet Take 4 tabs daily for 3 days, then 2 tabs daily for 3 days, then 1 tab daily for 3 days with food. sertraline (ZOLOFT) 25 mg tablet 75mg loperamide (IMODIUM) 2 mg cap(s) Take 1 capsule by mouth three times daily as needed for diarrhea for up to 14 days. benzonatate (TESSALON PERLE) 100 mg capsule Take 1 capsule by mouth three times daily as needed. (Patient not taking: Reported on 02/14/2021 ) predniSONE (DELTASONE) 10 mg tablet Take 4 tabs daily for 3 days, then 2 tabs daily for 3 days, then 1 tab daily for 3 days with food. permethrin (ELIMITE) 5 % cream Scabies: Apply cream from head to toe; leave on for 8-14 hours before washing off with water; for infants, also apply on the hairline, neck, scalp, alevism, and forehead; may reapply in 1 week if live mites appear. Amphetamine-Dextroamphetamine (ADDERALL XR) 25 mg 24 hr capsule Take 25 mg by mouth. (Patient not taking: Reported on 02/14/2021) dextroamphetamine-amphetamine (ADDERALL) 5 mg tablet Take 5 mg by mouth once daily. No family history on file. Social History Tobacco Use Smoking status: Never Smokeless tobacco: Never Substance Use Topics Alcohol use: Never Drug use: Never Review of Systems Constitutional: Negative for diaphoresis, fever and weight loss. Eyes: Negative for pain, discharge, redness and itching. Respiratory: Negative for apnea, cough, choking and chest tightness. Cardiovascular: Negative for chest pain, palpitations and leg swelling. Gastrointestinal: Negative for abdominal pain, bowel incontinence, diarrhea, nausea and vomiting. Endocrine: Negative for cold intolerance, heat intolerance and polydipsia. Genitourinary: Negative for bladder incontinence, dysuria and pelvic pain. Musculoskeletal: Positive for back pain. Skin: Negative for color change, pallor, rash and wound. Allergic/Immunologic: Negative for environmental allergies, food allergies and immunocompromised state. Neurological: Negative for dizziness, tingling, facial asymmetry, weakness, numbness, headaches and paresthesias. Hematological: Negative for adenopathy. Does not bruise/bleed easily. Psychiatric/Behavioral: Negative for agitation and behavioral problems. Objective BP 124/80 Pulse 98 Temp 36.1 C (97 F) Resp 16 Wt 102 kg (224 lb 12.8 oz) LMP 05/03/2022 (Exact Date) SpO2 100% Physical Exam Vitals and nursing note reviewed. Constitutional: General: She is not in acute distress. Appearance: Normal appearance. She is normal weight. She is not ill-appearing, toxic-appearing or diaphoretic. HENT: Head: Normocephalic and atraumatic. Right Ear: Ear canal and external ear normal. Left Ear: Ear canal and external ear normal. Nose: Nose normal. No congestion or rhinorrhea. Mouth/Throat: Mouth: Mucous membranes are moist. Pharynx: No oropharyngeal exudate or posterior oropharyngeal erythema. Eyes: General: Right eye: No discharge. Left eye: No discharge. Extraocular Movements: Extraocular movements intact. Conjunctiva/sclera: Conjunctivae normal. Pupils: Pupils are equal, round, and reactive to light. Cardiovascular: Rate and Rhythm: Normal rate and regular rhythm. Pulses: Normal pulses. Heart sounds: Normal heart sounds. No murmur heard. No friction rub. Pulmonary: Effort: Pulmonary effort is normal. No respiratory distress. Breath sounds: Normal breath sounds. No stridor. No wheezing, rhonchi or rales. Chest: Chest wall: No tenderness. Abdominal: General: Abdomen is flat. There is no distension. Palpations: Abdomen is soft. There is no mass. Tenderness: There is no abdominal tenderness. There is no right CVA tenderness, left CVA tenderness, guarding or rebound. Hernia: No hernia is present. Musculoskeletal: General: No swelling, tenderness, deformity or signs of injury. Normal range of motion. Cervical back: Normal range of motion and neck supple. No rigidity. Right lower leg: No edema. Left lower leg: No edema. Comments: NO midline cervical, thoracic, or lumbar midline TTP Diffuse upper trapezius muscle tenderness and tightness Lymphadenopathy: Cervical: No cervical adenopathy. Skin: General: Skin is warm and dry. Coloration: Skin is not jaundiced or pale. Findings: No bruising, erythema, lesion or rash. Neurological: General: No focal deficit present. Mental Status: She is alert and oriented to person, place, and time. Cranial Nerves: No cranial nerve deficit. Sensory: No sensory deficit. Motor: No weakness. Coordination: Coordination normal. Gait: Gait normal. Psychiatric: Mood and Affect: Mood normal. Behavior: Behavior normal. Thought Content: Thought content normal. Judgment: Judgment normal. Assessment and Plan ASSESSMENT/PLAN: 1. Upper back pain - ICD9: 724.5, ICD10: M54.9 Upper thoracic strain No red flags - Ice for localized tenderness - Warm moist heat for 20 min three times a day - Prednisone burst- see orders - Muscle relaxant- see orders - Patient given instructions use of medications as ordered, intermittent rest, back care exercise program, weight loss, and improved posture - Follow up in 2 days or sooner if symptoms persist or worsen Preethi Nagy APRN.[employer] documented in this encounter [facility] 05-05-2022 Instructions Luli Morrow APRN.CNP - 05/05/2022 4:59 PM EST ASSESSMENT/PLAN: 1. Viral URI with cough - ICD9: 465.9, ICD10: J06.9 (primary diagnosis) - Discussed viral etiology and rationale for treatment. - Symptomatic treatment with prn analgesia - Supportive care with fluids and rest - COVID WITH FLUA+B, ROUTINE - BENZONATATE 100 MG CAPSULE 2. History of fever - ICD9: V13.89, ICD10: Z87.898 - STREP A MOLECULAR (POC)- negative in office. - Follow-up with your PCP in 3-5 days if symptoms have not improved or sooner if symptoms worsen - Discussed red flags and need for immediate medical evaluation if any occur. - Discussed supportive care treatment with fluids, rest and analgesia. - Discussed expected course of illness Luli Morrow APRN.CNP Treatment for Viral Upper Respiratory Tract Infections Your body will kill off the virus by itself. Additionally, you can prime your body's immune system. This may help you get better more quickly. Drink lots of fluids - at least one gallon of non-caffeinated liquids per day Make sure you are eating well Get plenty of rest - at least 8 hours of sleep per night for adults and more for children We do not have any medications that kill off these viruses. Antibiotics are used to treat bacterial infections; however, they are not active against viral infections. There are some things that might help you feel better, though. Vaporizers, humidifiers, hot showers, and hot fluids help open respiratory and sinus passages Ages Nasal [place] may offer relief of nasal and head congestion Richard's Vapor Rub placed on a hot towel and draped over the head may relieve congestion Tylenol and Advil help control fevers and headaches Salt water gargles help relieve sore throats Chloraceptic spray or throat lozenges may also help relieve sore throat symptoms Robitussin will help loosen up secretions and also provide relief from a cough Occasionally, viral infections turn into something more serious. You should see your doctor or return to the Urgent Care if: You have fevers for longer than five days You have fevers above 102 degrees You are still sick after 10 days You have shortness of breath or wheezing After several days you are getting worse rather than better documented in this encounter [facility] 05-05-2022 History of Present illness Narrative Formatting of this note is different fro m the original. Subjective Cough Associated symptoms include shortness of breath. Pertinent negatives include no chest pain, no chills and no sore throat. Rakel Eaton is a 21 year old female who presents with cough, congestion for the past 3 days. 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 She has been taking cough syrup which does not help. She had a fever of 100 degrees yesterday but that has resolved. Review of Systems Constitutional: Negative for chills and fever. HENT: Positive for congestion. Negative for sore throat. Respiratory: Positive for cough, sputum production and shortness of breath. Cardiovascular: Negative for chest pain. Musculoskeletal: Negative for back pain. BP 116/74 Pulse 103 Temp 37.1 C (98.7 F) Resp 16 Wt 103.6 kg (228 lb 6.4 oz) LMP 05/03/2022 (Exact Date) SpO2 97% No past medical history on file. No past surgical history on file. ALLERGIES Delsym [Dextromethorphan Hbr] and Penicillins MEDICATIONS sertraline (ZOLOFT) 25 mg tablet 75mg LORATADINE ORAL Take by mouth. benzonatate (TESSALON PERLE) 100 mg capsule Take 1 capsule by mouth three times daily as needed for up to 10 days. loperamide (IMODIUM) 2 mg cap(s) Take 1 capsule by mouth three times daily as needed for diarrhea for up to 14 days. benzonatate (TESSALON PERLE) 100 mg capsule Take 1 capsule by mouth three times daily as needed. (Patient not taking: Reported on 02/14/2021 ) predniSONE (DELTASONE) 10 mg tablet Take 4 tabs daily for 3 days, then 2 tabs daily for 3 days, then 1 tab daily for 3 days with food. permethrin (ELIMITE) 5 % cream Scabies: Apply cream from head to toe; leave on for 8-14 hours before washing off with water; for infants, also apply on the hairline, neck, scalp, alevism, and forehead; may reapply in 1 week if live mites appear. Amphetamine-Dextroamphetamine (ADDERALL XR) 25 mg 24 hr capsule Take 25 mg by mouth. (Patient not taking: Reported on 02/14/2021) dextroamphetamine-amphetamine (ADDERALL) 5 mg tablet Take 5 mg by mouth once daily. No family history on file. Social History Tobacco Use Smoking status: Never Smokeless tobacco: Never Substance Use Topics Alcohol use: Never Drug use: Never Objective Physical Exam Vitals and nursing note reviewed. Constitutional: Appearance: Normal appearance. HENT: Right Ear: Tympanic membrane, ear canal and external ear normal. Left Ear: Tympanic membrane, ear canal and external ear normal. Nose: Nose normal. Mouth/Throat: Mouth: Mucous membranes are moist. Pharynx: Uvula midline. Posterior oropharyngeal erythema (slight) present. No oropharyngeal exudate. Tonsils: 2+ on the right. 2+ on the left. Cardiovascular: Rate and Rhythm: Normal rate and regular rhythm. Heart sounds: Normal heart sounds. Pulmonary: Effort: Pulmonary effort is normal. No respiratory distress. Breath sounds: Normal breath sounds. No wheezing or rales. Musculoskeletal: Cervical back: Neck supple. Lymphadenopathy: Cervical: No cervical adenopathy. Skin: General: Skin is warm and dry. Findings: No erythema or rash. Neurological: Mental Status: She is alert. ASSESSMENT/PLAN: 1. Viral URI with cough - ICD9: 465.9, ICD10: J06.9 (primary diagnosis) - Discussed viral etiology and rationale for treatment. - Symptomatic treatment with prn analgesia - Supportive care with fluids and rest - COVID WITH FLUA+B, ROUTINE - BENZONATATE 100 MG CAPSULE 2. History of fever - ICD9: V13.89, ICD10: Z87.898 - STREP A MOLECULAR (POC)- negative in office. - Follow-up with your PCP in 3-5 days if symptoms have not improved or sooner if symptoms worsen - Discussed red flags and need for immediate medical evaluation if any occur. - Discussed supportive care treatment with fluids, rest and analgesia. - Discussed expected course of illness Luli Morrow APRN.[employer] documented in this encounter [facility] 03-06-2022 Instructions Darius Miles APRN.[employer] - 03/06/2022 6:41 PM EDT How to Manage Common Symptoms Associated with COVID for Adults Fever- Fever is a temperature over 100.4 F and can occur when the body is fighting an infection. To help treat a fever: Drink plenty of fluids and stay well hydrated. Eat small amounts of easy to digest food. Rest. Your body needs rest to recover, but getting up and moving around the house frequently is a good idea. You should try to continue doing your normal daily activities (bathing, toileting, grooming, cooking), though you will probably feel tired, and need to rest often. Avoid any heavy activity or exercise, as this will increase your body temperature. Dress in light clothing and stay covered in a light sheet. Keep the room temperature cool. Take a slightly warm (not cold or cool) bath, or apply damp washcloths to the forehead and wrists. Cough- Cough is a common symptom associated with COVID and can be bothersome. To help treat a cough: Stay well hydrated. Try warm water or tea with lemon and/or honey to help soothe the cough. Use a humidifier to add moisture to the air. Try a product with menthol, like a cough drop or a rub for your chest such as Vicks, which can help reduce cough. Try cough drops. Avoid smoking and other strong odors or perfumes. Try breathing exercises to keep your lungs open and clear. Take a big deep breath through your nose and hold for 5 seconds before slowly releasing. Repeat frequently, while you are awake. Congestion- Runny nose or nasal congestion can occur with COVID. Treatment can help relieve symptoms: Try OTC nasal saline spray, or nasal saline rinse to relieve mucus congestion. Nasal strips can help keep nasal passages open, to increase airflow. Elevating your head with an extra pillow in bed can help reduce congestion. Using a humidifier can increase moisture in the air, and make breathing easier. Sore Throat- Another common symptom with COVID, can be managed at home by: Stay well hydrated. Gargle with salt water - mix teaspoon salt with 1 cup of warm water and gargle. This helps to loosen mucus in the back of the throat and may reduce discomfort. Try ice chips, popsicles or lozenges to soothe the throat. Nausea/Vomiting/Diarrhea- These are common symptoms, and staying hydrated is most important. If you are nauseous or vomiting, start with small sips of water every 10-15 minutes and increase as tolerated. You can try sucking an ice cube too. If tolerating, you can try pedialyte or Gatorade, or flat sprite or rosales-gab. Start slowly and increase as you are able to. Instead of meals, try smaller, more frequent snacks. Try eating bland foods like crackers, toast, rice, and applesauce. Avoid spicy, greasy or fried foods and dairy containing foods. Even if you aren't feeling hungry due to lack of smell or taste, it is important to try to take in some food when you are able. After drinking and eating, rest in an upright position for up to two hours as needed to help decrease nauseous feelings. Try closing your eyes, avoid moving and watching TV. Avoid strong odors that can make you feel more nauseated. When to seek emergency medical attention Look for emergency warning signs for COVID-19. If having any of these symptoms, seek emergency medical care immediately: Trouble breathing Persistent pain or pressure in the chest New confusion Inability to wake or stay awake Bluish lips or face *This list is not all possible symptoms. Please call your medical provider for any other symptoms that are severe or concerning to you. documented in this encounter [facility] 03-06-2022 History of Present illness Narrative Formatting of this note is different fro m the original. Subjective HPI Nontoxic-appearing female presents urgent care chief complaint possible strep throat. Duration of symptoms 2 days. Associated symptoms sore throat cough nasal congestion. Patient states history of strep throat this feels similar. Has not used any OTC medications. Denies any significant pain. Increased pain with swallowing. States no known direct sick contacts. Does work in a daycare. Denies any fever body aches chills productive cough chest pain shortness of breath pleuritic pain hemoptysis nausea vomiting abdominal pain change in bowel or bladder habits past medical history prescription medication use allergies reviewed. Denies chance of is not breast-feeding. .Patient presents with: Strep Test: Strep throat, cough x 2 days History reviewed. No pertinent past medical history. History reviewed. No pertinent surgical history. ALLERGIES Delsym [Dextromethorphan Hbr] and Penicillins MEDICATIONS sertraline (ZOLOFT) 25 mg tablet TAKE 1 TABLET BY MOUTH EVERY DAY FOR 60 DAYS LORATADINE ORAL Take by mouth. loperamide (IMODIUM) 2 mg cap(s) Take 1 capsule by mouth three times daily as needed for diarrhea for up to 14 days. benzonatate (TESSALON PERLE) 100 mg capsule Take 1 capsule by mouth three times daily as needed. (Patient not taking: Reported on 02/14/2021 ) predniSONE (DELTASONE) 10 mg tablet Take 4 tabs daily for 3 days, then 2 tabs daily for 3 days, then 1 tab daily for 3 days with food. permethrin (ELIMITE) 5 % cream Scabies: Apply cream from head to toe; leave on for 8-14 hours before washing off with water; for infants, also apply on the hairline, neck, scalp, alevism, and forehead; may reapply in 1 week if live mites appear. Amphetamine-Dextroamphetamine (ADDERALL XR) 25 mg 24 hr capsule Take 25 mg by mouth. (Patient not taking: Reported on 02/14/2021) dextroamphetamine-amphetamine (ADDERALL) 5 mg tablet Take 5 mg by mouth once daily. History reviewed. No pertinent family history. Social History Tobacco Use Smoking status: Never Smokeless tobacco: Never Substance Use Topics Alcohol use: Never Drug use: Never BP 122/78 Pulse 83 Temp 36.9 C (98.4 F) Resp 21 Wt 104 kg (229 lb 3.2 oz) SpO2 98% Review of Systems Constitutional: Negative for chills, fever and malaise/fatigue. HENT: Positive for congestion and sore throat. Negative for ear discharge, ear pain and sinus pain. Eyes: Negative for blurred vision, pain, discharge and redness. Respiratory: Positive for cough. Negative for hemoptysis, sputum production, shortness of breath, wheezing and stridor. Cardiovascular: Negative for chest pain. Gastrointestinal: Negative for abdominal pain, diarrhea, nausea and vomiting. Musculoskeletal: Negative for myalgias. Skin: Negative for itching and rash. Neurological: Negative for dizziness and headaches. Objective Physical Exam Constitutional: General: She is not in acute distress. Appearance: She is not diaphoretic. HENT: Head: Normocephalic. Jaw: No trismus, tenderness, swelling or pain on movement. Mouth/Throat: Lips: [place]. Mouth: Mucous membranes are moist. Pharynx: Oropharynx is clear. Uvula midline. Posterior oropharyngeal erythema present. No pharyngeal swelling, oropharyngeal exudate or uvula swelling. Tonsils: No tonsillar exudate or tonsillar abscesses. Eyes: Conjunctiva/sclera: Conjunctivae normal. Pupils: Pupils are equal, round, and reactive to light. Cardiovascular: Rate and Rhythm: Normal rate and regular rhythm. Heart sounds: Normal heart sounds. Pulmonary: Effort: Pulmonary effort is normal. No tachypnea, accessory muscle usage or respiratory distress. Breath sounds: Normal breath sounds. No stridor. No wheezing, rhonchi or rales. Abdominal: General: There is no distension. Palpations: Abdomen is soft. Tenderness: There is no abdominal tenderness. There is no guarding or rebound. Musculoskeletal: Cervical back: Normal range of motion and neck supple. No rigidity or tenderness. Lymphadenopathy: Cervical: No cervical adenopathy. Skin: General: Skin is warm and dry. Neurological: Mental Status: She is alert and oriented to person, place, and time. ASSESSMENT/PLAN: 1. Pharyngitis, unspecified etiology - ICD9: 462, ICD10: J02.9 (primary diagnosis) - STREP A MOLECULAR (POC) 2. Viral illness - ICD9: 079.99, ICD10: B34.9 Patient diagnosed with pharyngitis and viral illness. Strep test was negative. COVID-19 test was offered declined testing at this time. Patient was educated on supportive therapies. Patient will follow up with primary care provider as needed. Patient was instructed to immediately proceed to emergency room for any new, worsening, or symptoms lasting longer than anticipated. The patient's clinical presentation is otherwise unremarkable at this time. Based on exam and clinical finding, the patient is stable for discharge. Plan of care was discussed with patient. Patient verbalizes understanding and agrees to plan of care. This note was generated using [employer] software. It may contain errors in wording, punctuation, or spelling. Darius Miles APRN.GUN STRIPER documented in this encounter [facility] 01-11-2022 Miscellaneous Notes Patient given results and verbalized understanding of instructions given. Robin Palumbo ----- Message from Igor Sprague MD sent at 01/11/2022 7:19 AM EDT ----- COVID negative. documented in this encounter [facility] 01-10-2022 History of Present illness Narrative Subjective HPI HPI Rakel Eaton is a 21 year old female who presents today for CC of st, cough, sinus pressure. This started 1 week ago, slight improvement few days ago then severely worsening sinus pressure. Has tried otc medication for relief. Symptoms are worsened by nothing. 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 Denies cp/sob, n/v/d, ear pain, rash, fever. Denies possibility of being . Nonsmoker. .Patient presents with: Sore Throat: pain rated 1, x1 wk, nasal congestion, N/V, Lynne pain rated 6 No past medical history on file. No past surgical history on file. ALLERGIES Delsym [Dextromethorphan Hbr] and Penicillins MEDICATIONS LORATADINE ORAL Take by mouth. doxycycline monohydrate 100 mg tablet Take 1 tablet by mouth twice daily for 7 days. loperamide (IMODIUM) 2 mg cap(s) Take 1 capsule by mouth three times daily as needed for diarrhea for up to 14 days. benzonatate (TESSALON PERLE) 100 mg capsule Take 1 capsule by mouth three times daily as needed. predniSONE (DELTASONE) 10 mg tablet Take 4 tabs daily for 3 days, then 2 tabs daily for 3 days, then 1 tab daily for 3 days with food. permethrin (ELIMITE) 5 % cream Scabies: Apply cream from head to toe; leave on for 8-14 hours before washing off with water; for infants, also apply on the hairline, neck, scalp, alevism, and forehead; may reapply in 1 week if live mites appear. Amphetamine-Dextroamphetamine (ADDERALL XR) 25 mg 24 hr capsule Take 25 mg by mouth. dextroamphetamine-amphetamine (ADDERALL) 5 mg tablet Take 5 mg by mouth once daily. No family history on file. Social History Tobacco Use Smoking status: Never Smoker Smokeless tobacco: Never Used Substance Use Topics Alcohol use: Never Drug use: Never ROS Objective Blood pressure 110/72, pulse 105, temperature 36.3 C (97.4 F), resp. rate 18, weight 101.9 kg (224 lb 9.6 oz), SpO2 97 %. Physical Exam Constitutional: General: She is not in acute distress. Appearance: She is not toxic-appearing or diaphoretic. HENT: Head: Normocephalic and atraumatic. Nose: Right Sinus: Maxillary sinus tenderness present. Left Sinus: Maxillary sinus tenderness present. Mouth/Throat: Pharynx: Posterior oropharyngeal erythema present. No pharyngeal swelling, oropharyngeal exudate or uvula swelling. Tonsils: 3+ on the right. 3+ on the left. Cardiovascular: Rate and Rhythm: Normal rate and regular rhythm. Heart sounds: Normal heart sounds, S1 normal and S2 normal. Pulmonary: Effort: Pulmonary effort is normal. Breath sounds: Normal breath sounds. Lymphadenopathy: Cervical: No cervical adenopathy. Right cervical: No superficial cervical adenopathy. Left cervical: No superficial cervical adenopathy. Neurological: Mental Status: She is alert and oriented to person, place, and time. Gait: Gait is intact. ASSESSMENT/PLAN: 1. Bacterial sinusitis - ICD9: 473.9, 041.9, ICD10: J32.9, B96.89 (primary diagnosis) - Will begin treatment with Doxycycline - Supportive care with plenty of fluids, rest, and analgesia prn. - Follow up in 3-5 days if symptoms persist or worsen. - DOXYCYCLINE MONOHYDRATE 100 MG TABLET 2. Sore throat - ICD9: 462, ICD10: J02.9 - Alere Strep Test negative, no culture pending - Contagious dz precautions discussed- including considered contagious until on antibiotics for 24 hours F/u in 3-4 days if not better. - ALERE STREP A TEST (AG) - 2019 CORONAVIRUS Agrees to plan Maynor Calles APRN.GUN STRIPER documented in this encounter [facility] 09-25-2021 Instructions Sandoval Kat - 09/25/2021 1:44 PM EDT Return for mono test on 09/30 if symptoms do not resolve within 10 days. HOME INSTRUCTIONS FOR MANAGEMENT OF DIARRHEA NON-PHARMACOLOGICAL MEASURES 1. Drink plenty of fluids -- 2-3 quarts daily as tolerated, sipping throughout the day. (Gatorade, bouillon, soups, etc.) 2. Try nutritious low fiber foods: bananas, rice, applesauce, toast, yogurt, noodles, white bread, skinned chicken or turkey, and fish. 3. Avoid foods such as: ~ [place], fatty or fried foods ~ Raw vegetables and fruits ~ Strong spices ~ Whole grain cereals & breads, and nuts ~ Gas forming foods & beverages (beans, cabbage, carbonated drinks) 4. Limit foods or beverages with caffeine (such as coffee, strong tea, & sodas) and extremely hot or cold beverages. PHARMACOLOGICAL MEASURES 1. Take Imodium 1 tablet after each loose stool. Do not exceed 8 tablets in 24 hours. CALL YOUR DOCTOR IF YOU HAVE: ~ More than 3 loose stools in 24 hours ~ Black stools or blood in stools ~ Dark (concentrated) urine ~ Fever: 100 F (38 C) ~ Flushed dry skin ~ Dizziness ~ Stools do not decrease with drug & diet recommendations. For a Medical Emergency: Call documented in this encounter [facility] 09-25-2021 History of Present illness Narrative This note was created using [employer]. Subjective Rakel Eaton is a 20 year old female who presents with coughing, sore throat, nausea, vomiting, and diarrhea x 5 days. Sore Throat This is a new problem. The current episode started in the past 7 days. The problem has been gradually worsening. Neither side of throat is experiencing more pain than the other. There has been no fever. Associated symptoms include congestion, coughing, diarrhea, headaches, a hoarse voice, swollen glands and vomiting. Pertinent negatives include no abdominal pain, drooling, ear pain or shortness of breath. Diarrhea This is a new problem. The current episode started more than 2 days ago. The problem occurs 2 to 4 times per day. The problem has been gradually worsening. The stool consistency is described as watery. There has been no fever. Associated symptoms include vomiting, headaches and cough. Pertinent negatives include no abdominal pain and no chills. She has tried a change of diet and increased fluid intake for the symptoms. The treatment provided mild relief. Her past medical history does not include irritable bowel syndrome or recent abdominal surgery. Review of Systems Constitutional: Negative for chills and fever. HENT: Positive for congestion, hoarse voice, sore throat and voice change. Negative for drooling, ear pain, rhinorrhea and sinus pain. Eyes: Negative. Respiratory: Positive for cough. Negative for shortness of breath. Gastrointestinal: Positive for diarrhea, nausea and vomiting. Negative for abdominal pain, blood in stool and constipation. Genitourinary: Negative. Musculoskeletal: Negative. Skin: Negative. Neurological: Positive for headaches. Psychiatric/Behavioral: Negative. Objective BP 122/78 Pulse 92 Temp 36.9 C (98.5 F) (Tympanic) Resp 18 Wt 99.4 kg (219 lb 3.2 oz) SpO2 98% History reviewed. No pertinent past medical history. No past surgical history on file. ALLERGIES Delsym [Dextromethorphan Hbr] and Penicillins MEDICATIONS trimethoprim-polymyxin (POLYTRIM) 10,000 unit- 1 mg/mL ophthalmic solution Use 1 Drop in both eyes four times daily for 7 days. LORATADINE ORAL Take by mouth. ondansetron orally disintegrating (ZOFRAN ODT) 4 mg disintegrating tablet Take 1 tablet by mouth every 6 hours as needed for nausea/vomiting for up to 14 days. loperamide (IMODIUM) 2 mg cap(s) Take 1 capsule by mouth three times daily as needed for diarrhea for up to 14 days. benzonatate (TESSALON PERLE) 100 mg capsule Take 1 capsule by mouth three times daily as needed. predniSONE (DELTASONE) 10 mg tablet Take 4 tabs daily for 3 days, then 2 tabs daily for 3 days, then 1 tab daily for 3 days with food. permethrin (ELIMITE) 5 % cream Scabies: Apply cream from head to toe; leave on for 8-14 hours before washing off with water; for infants, also apply on the hairline, neck, scalp, alevism, and forehead; may reapply in 1 week if live mites appear. Amphetamine-Dextroamphetamine (ADDERALL XR) 25 mg 24 hr capsule Take 25 mg by mouth. dextroamphetamine-amphetamine (ADDERALL) 5 mg tablet Take 5 mg by mouth once daily. No family history on file. Social History Tobacco Use Smoking status: Never Smoker Smokeless tobacco: Never Used Substance Use Topics Alcohol use: Not on file Drug use: Not on file Physical Exam Vitals reviewed. Constitutional: General: She is not in acute distress. Appearance: Normal appearance. HENT: Head: Normocephalic and atraumatic. Nose: Congestion present. Mouth/Throat: Mouth: Mucous membranes are moist. Pharynx: Posterior oropharyngeal erythema present. No oropharyngeal exudate. Eyes: General: No scleral icterus. Extraocular Movements: Extraocular movements intact. Conjunctiva/sclera: Conjunctivae normal. Pupils: Pupils are equal, round, and reactive to light. Cardiovascular: Rate and Rhythm: Regular rhythm. Tachycardia present. Heart sounds: Normal heart sounds. Pulmonary: Effort: Pulmonary effort is normal. No respiratory distress. Breath sounds: Normal breath sounds. No wheezing. Abdominal: General: Abdomen is flat. Bowel sounds are normal. There is no distension. Palpations: Abdomen is soft. Tenderness: There is no abdominal tenderness. There is no guarding. Musculoskeletal: Cervical back: Normal range of motion and neck supple. Lymphadenopathy: Cervical: Cervical adenopathy present. Skin: General: Skin is warm and dry. Capillary Refill: Capillary refill takes less than 2 seconds. Coloration: Skin is not jaundiced. Neurological: General: No focal deficit present. Mental Status: She is alert and oriented to person, place, and time. Mental status is at baseline. Psychiatric: Mood and Affect: Mood normal. Behavior: Behavior normal. Assessment and Plan ASSESSMENT/PLAN: 1. Gastroenteritis - ICD9: 558.9, ICD10: K52.9 (primary diagnosis) - COVID WITH FLUA+B, ROUTINE - ONDANSETRON 4 MG DISINTEGRATING TABLET - LOPERAMIDE 2 MG CAPSULE 2. Upper respiratory tract infection, unspecified type - ICD9: 465.9, ICD10: J06.9 - Discussed viral etiology and rationale for treatment. - Rapid strep negative in office today - Symptomatic treatment with prn analgesia - Supportive care with fluids and rest - STREP A MOLECULAR (POC) - COVID WITH FLUA+B, ROUTINE - MONOTEST, INFECTIOUS MONO- to be completed in a few days if flu is negative and not improving Sandoval Kat RN - Follow-up with your PCP in 3-5 days if symptoms have not improved or sooner if symptoms worsen - Discussed red flags and need for immediate medical evaluation if any occur. - Discussed supportive care treatment with fluids, rest and analgesia. - Discussed expected course of illness TEACHING PROVIDER (Physician/PA/[employer]INTER RETURNER) NOTE OF PERSONAL INVOLVEMENT IN CARE: I have personally seen and examined the patient and performed the medical decision-making components. I have reviewed the Advanced Practice Registered Nurse ([employer] RETURNER) Student's documentation and verified the findings in the note as written. Any additions or changes are noted in bold/italics. Signature: Luli Morrow Date: 09/25/2021 Time: 1:56 PM documented in this encounter [facility] 09-20-2021 History of Present illness Narrative Subjective HPI Nontoxic-appearing female presents urgent care chief complaint possible pinkeye. Duration of symptoms 2 days. Associated symptoms nasal congestion sneezing eye redness clear drainage and ocular pruritus. Patient presents today to ensure she does not have bacterial conjunctivitis. Does work in daycare. No known sick contacts. No OTC medication use. Denies any pain. Denies any fever body aches chills productive cough chest pain shortness of breath pleuritic pain hemoptysis nausea vomiting abdominal pain eye trauma eye pain ocular history contact lens use flashing light floaters rashes change in bowel or bladder habits. Past medical history prescription medication use allergies reviewed he was is up-to-date. Denies chance of . .Patient presents with: Eye Problem: redness in eyes x today, nasal congestion, drainage x 2 days History reviewed. No pertinent past medical history. History reviewed. No pertinent surgical history. ALLERGIES Delsym [Dextromethorphan Hbr] and Penicillins MEDICATIONS LORATADINE ORAL Take by mouth. trimethoprim-polymyxin (POLYTRIM) 10,000 unit- 1 mg/mL ophthalmic solution Use 1 Drop in both eyes four times daily for 7 days. benzonatate (TESSALON PERLE) 100 mg capsule Take 1 capsule by mouth three times daily as needed. predniSONE (DELTASONE) 10 mg tablet Take 4 tabs daily for 3 days, then 2 tabs daily for 3 days, then 1 tab daily for 3 days with food. permethrin (ELIMITE) 5 % cream Scabies: Apply cream from head to toe; leave on for 8-14 hours before washing off with water; for infants, also apply on the hairline, neck, scalp, alevism, and forehead; may reapply in 1 week if live mites appear. Amphetamine-Dextroamphetamine (ADDERALL XR) 25 mg 24 hr capsule Take 25 mg by mouth. dextroamphetamine-amphetamine (ADDERALL) 5 mg tablet Take 5 mg by mouth once daily. History reviewed. No pertinent family history. Social History Tobacco Use Smoking status: Never Smoker Smokeless tobacco: Never Used Substance Use Topics Alcohol use: Not on file Drug use: Not on file BP 110/68 Pulse 118 Temp 36.7 C (98.1 F) Resp 18 Wt 100.7 kg (222 lb) SpO2 99% Hr 90 Review of Systems Constitutional: Negative for chills, fever and malaise/fatigue. HENT: Positive for congestion. Negative for ear discharge, ear pain, sinus pain and sore throat. Eyes: Positive for discharge and redness. Negative for blurred vision, double vision, photophobia and pain. Respiratory: Negative for cough, hemoptysis, sputum production, shortness of breath, wheezing and stridor. Cardiovascular: Negative for chest pain. Gastrointestinal: Negative for abdominal pain, diarrhea, nausea and vomiting. Musculoskeletal: Negative for myalgias. Skin: Negative for itching and rash. Neurological: Negative for dizziness and headaches. Objective Physical Exam Vitals and nursing note reviewed. Constitutional: General: She is not in acute distress. Appearance: She is not diaphoretic. HENT: Head: Normocephalic and atraumatic. Jaw: No trismus. Right Ear: Hearing, tympanic membrane, ear canal and external ear normal. No decreased hearing noted. No drainage, swelling or tenderness. No mastoid tenderness. Tympanic membrane is not perforated, erythematous or bulging. Left Ear: Hearing, tympanic membrane, ear canal and external ear normal. No decreased hearing noted. No drainage, swelling or tenderness. No mastoid tenderness. Tympanic membrane is not perforated, erythematous or bulging. Mouth/Throat: Lips: [place]. Mouth: Mucous membranes are moist. Pharynx: Oropharynx is clear. Uvula midline. No pharyngeal swelling, oropharyngeal exudate, posterior oropharyngeal erythema or uvula swelling. Eyes: General: Lids are normal. Right eye: Discharge present. No foreign body or hordeolum. Left eye: Discharge present.No foreign body or hordeolum. Extraocular Movements: Right eye: No nystagmus. Left eye: No nystagmus. Conjunctiva/sclera: Right eye: Right conjunctiva is injected. No chemosis, exudate or hemorrhage. Left eye: Left conjunctiva is injected. No chemosis, exudate or hemorrhage. Pupils: Pupils are equal, round, and reactive to light. Comments: [place] clear. Visual acuity unchanged via bedside examination. Small amount of clear drainage noted. Cardiovascular: Rate and Rhythm: Normal rate and regular rhythm. Heart sounds: Normal heart sounds. Pulmonary: Effort: Pulmonary effort is normal. No respiratory distress. Breath sounds: Normal breath sounds. No stridor. No wheezing, rhonchi or rales. Chest: Chest wall: No tenderness. Abdominal: Palpations: Abdomen is soft. Tenderness: There is no abdominal tenderness. Musculoskeletal: General: No tenderness. Normal range of motion. Cervical back: Normal range of motion and neck supple. Lymphadenopathy: Head: Right side of head: No submental, submandibular, tonsillar, preauricular, posterior auricular or occipital adenopathy. Left side of head: No submental, submandibular, tonsillar, preauricular, posterior auricular or occipital adenopathy. Cervical: No cervical adenopathy. Right cervical: No superficial or posterior cervical adenopathy. Left cervical: No superficial or posterior cervical adenopathy. Skin: General: Skin is warm and dry. Findings: No rash. Neurological: Mental Status: She is alert and oriented to person, place, and time. ASSESSMENT/PLAN: 1. Acute conjunctivitis of both eyes, unspecified acute conjunctivitis type - ICD9: 372.00, ICD10: H10.33 Patient diagnosed with acute conjunctivitis. Suspicious of allergic etiology. Patient states she does have ocular pruritus. This is bilateral. There is no visual changes. No eye pain. No surrounding erythema edema. No purulent discharge. Supportive therapies discussed. Safety net antibiotic prescribed. Red flags for prompt reevaluation discussed. Will follow up with PCP 2 to 3 days symptoms are not improving. Will be seen in ED for any new worsening or symptoms lasting longer than anticipated. Patient verbalized understanding agrees with plan of care. Darius Miles APRN.TRINO documented in this encounter [facility] 09-20-2021 Instructions Darius Miles APRN.CNP - 09/20/2021 1:49 PM EDT Eye Allergies and Allergic Conjunctivitis The eyes are one of the most sensitive and vulnerable organs in the body. Airborne allergens and other particles can land directly on the surface of the eye, causing irritation and redness. Although tears constantly wash the eyes, they can't always keep out allergens like pollen or pet dander. Because of this, allergies that flare up in the eyes, also known as ocular allergies, are common. What Are Ocular Allergies? Eye allergies are no different than allergies that affect your sinuses, nose or lungs. When an allergen comes in contact with your eyes, your body releases histamine - a chemical produced in reaction to a substance that the immune system can't tolerate. Special cells called mast cells make histamine. These cells are present throughout the body but are highly concentrated in the eyes. Location of allergy symptoms depends somewhat on where the allergen has come into contact with your body. Ocular allergens tend to be airborne (as are most other allergens). The most frequent allergic triggers include: Pollen Pet hair or dander Dust Some medicines There also are some triggers that irritate the eyes but are not true allergies, such as: Cigarette smoke Perfume Diesel Exhaust What Is Allergic Conjunctivitis? Conjunctivitis, also known as pink eye, is an inflammation of the conjunctiva (the membrane lining under the eyelids) and can be caused by allergies or infections. Allergic conjunctivitis and conjunctivitis caused by an infection can be hard to distinguish. Both have similar symptoms, such as redness, itching and swelling in the eye area. However, when conjunctivitis is caused by allergies, both eyes are usually affected. Viral or bacterial conjunctivitis can affect either a single eye or both eyes. It is important to pinpoint whether someone has conjunctivitis because of allergies or infection since each condition has a different treatment. Common symptoms of allergic conjunctivitis are: Redness and itching under the eyelid Excessive watering Swelling of the eyeball Common symptoms of conjunctivitis associated with infection are: Feeling that eyelids are glued shut upon waking Sensitivity to light Pus on the surface of the eye Burning sensation Treatment If you have ocular allergies or any other kind of allergic disease, the most effective treatment is prevention: try to avoid the allergens that trigger symptoms. For many, this is easier said than done, especially if your triggers are airborne, such as pollen. When ocular allergies can't be controlled, there are several medications that may help relieve symptoms. Most of these treatments come in a topical form - such as eye drops or an ointment. Eye drops, also called tear substitutes, can help in two ways: (1) by physically washing away allergens; and (2) by moistening the eye, which can become dry and red when irritated. Eye drops that contain medications to help reduce allergy symptoms also are available. Topical Decongestants Some eye drops contain topical decongestants that constrict small blood vessels and help reduce eye redness. These eye drops are available without a prescription. If you use eye drops with topical decongestants, be careful not to use them for prolonged periods. Overuse of topical decongestants can lead to increased swelling and redness that can last even after you stop using the drops. This is known as a rebound effect. Topical decongestants, or any kind of eye drop containing chemicals that narrow blood vessels (called vasoconstrictors), shouldn't be used if you have glaucoma. Glaucoma is damage to the eye that results from increased pressure in the eyeball (also called intraocular pressure, or IOP). Vasoconstrictors can worsen this condition. Topical Antihistamines Eye drops containing antihistamines can reduce redness and swelling in the eye. Antihistamines block the effects of the chemical histamine, which is responsible for allergic symptoms like swelling, redness and itching. Mild antihistamine eye drops are available over the counter, but stronger ones are available by prescription. Helpful Strategies Chilling any topical medications can help relieve redness and itching of the eyes. In addition, using cold compresses can help reduce some of the discomfort associated with conjunctivitis. A washcloth soaked in cold water works well. Oral nonsteroidal anti-inflammatory drugs (NSAIDs), such as aspirin and ibuprofen-based medications, also can help reduce inflammation and symptoms like swelling in some patients. Steroids When topically administered medications like antihistamines and vasoconstrictors fail to help alleviate conjunctivitis symptoms, your doctor may prescribe topical steroids. Steroid eye drops can help control chronic and acute cases of conjunctivitis but should only be used as prescribed by your doctor. Steroids applied directly to the eye can cause a sharp increase in ocular pressure that can result in significant eye damage or glaucoma. Prolonged use of topical steroids in the eyes also can lead to cataracts. Cataracts form when the cornea on the surface of the eye gradually becomes opaque, causing blindness. Because steroids can promote the growth of viruses, your doctor will want to rule out viral conjunctivitis as the cause of your eye problems before prescribing topical steroids. Immunotherapy Immunotherapy, also known as allergy shots, is another option for treating allergic conjunctivitis. Immunotherapy is a process that gradually desensitizes you to your allergens. Tiny amounts of the allergen are injected under the skin over the course of several years. During immunotherapy, your body will begin to develop a normal immune response to the allergen, and you won't experience red, watery eyes every time you are around pets or pollen. Although immunotherapy may take several months to produce results, it can eventually greatly diminish the need for eye drops or other medication. When To See an Open Soaper Tender You should consult with an portal developer-sociology research assistant if you persistently have red, itchy, watery eyes. Many times, with the help of a doctor, ocular allergies and conjunctivitis can be controlled. Copyright 2000 [employer], [email or web address] and [employer] documented in this encounter [facility] 05-31-2020 History of Present illness Narrative DATE OF SERVICE: 05/29/2020 CHIEF COMPLAINT: Rash on bilateral arms. A 19-year-old female presented with rash on bilateral arms, neck, abdomen and chest. Going on for a day. No other complaint. DRUG ALLERGIES: PENICILLIN, DELSYM. MEDICATIONS: 1. Loratadine. 2. Benadryl. 3. Hydrocortisone. PHYSICAL EXAMINATION: Blood pressure is 128/77, pulse 72, respirations 18, temperature is 97.3, pulse oximetry 100%. Pain is 1 to 2/10. HEENT within normal limits. Lungs/Heart within normal limits. Rash appears to be papular pustular rash on the right side of the neck all the way down towards the mid portion of her chest and multiple papular lesions on the arms, appear to be solitary papular lesions and some solitary papular lesion around the waist. ASSESSMENT: Acute dermatitis and multiple insect bites. PLAN: Discussed with patient treatment and plan. I placed on hydrocortisone cream and prednisone tapering dose. Have patient follow up as needed. Treatment and plan was thoroughly discussed. Isaac Boudreaux MD [id number] SSI File#: [id number] END OF DOCUMENT / CHANGE LOG FOLLOWS Last Edited By [employer]. Signed By Isaac Boudreaux MD #Isaac Price MD on 06/03/2020 16:27 ET on 06/03/2020 16:27 ET Revision Number - 2 ^^^ Verified/Reviewed by 06/03/20 1630 [facility] PATIENT NAME: RAKEL EATON [address] [facility] [address] Chery MEDICAL REC #: [id number] [place] [address] [place] [facility] PHYSICIAN documented in this encounter [facility] Evaluation + Plan note Future Appointments Appointment Date:04/11/2022 08:00:00 AM Scheduled Provider:ASHANTI LEWIS DO Location:[facility] Appointment Type:PC OV [facility] Evaluation + Plan note Future Appointments Appointment Date:08/01/2022 09:30:00 AM Scheduled Provider:ASHANTI LEWIS DO Location:[facility] Appointment Type:PC OV Follow Up [facility] Evaluation + Plan note Future Appointments Appointment Date:03/08/2023 08:00:00 AM Scheduled Provider:ASHANTI LEWIS DO Location:[facility] Appointment Type:PC Wellness Annual [facility] Diagnosis Gastroenteritis- Primary Other and unspecified noninfectious gastroenteritis and colitis Upper respiratory tract infection, unspecified type documented in this encounter [facility] note* Diagnosis Bacterial sinusitis- Primary Unspecified sinusitis (chronic) Sore throat Acute pharyngitis documented in this encounter [facility] note* Diagnosis Pharyngitis, unspecified etiology- Primary Viral illness Unspecified viral infection, in conditions classified elsewhere and of unspecified site documented in this encounter [facility] note* Diagnosis Viral URI with cough- Primary Acute upper respiratory infections of unspecified site History of fever Personal history of other specified diseases documented in this encounter [facility] note* Diagnosis Upper back pain- Primary documented in this encounter [facility] note* Diagnosis Pharyngitis, unspecified etiology- Primary Acute otitis media, left Unspecified otitis media documented in this encounter [facility] note* Diagnosis Viral syndrome- Primary Unspecified viral infection, in conditions classified elsewhere and of unspecified site documented in this encounter [facility] note* Diagnosis Lower extremity injury, left, initial encounter- Primary documented in this encounter [facility] note* Diagnosis Lumbar pain- Primary Lumbago documented in this encounter [facility] note* Diagnosis Acute right-sided low back pain with right-sided sciatica- Primary documented in this encounter [facility] course Narrative No data available for this section [facility] Hospital Discharge instructions No data available for this section [facility] Progress note No data available for this section [facility] Reason for referral (narrative)* Diagnostic Procedure Only (Urgent) - Closed Specialty Diagnoses / Procedures Referred By Mumtazac t Referred To Contact XR IMAGING Diagnoses Lower extremity injury, left, initial encounter Procedures XR FOOT GENERAL 3V AP/LAT/OBL LEFT RADEX FOOT COMPLETE MINIMUM 3 VIEWS Maynor Calles APRN.CNP [address] [place] [address] Xr Imaging Referral ID Status Reason Start Date Expiration Date V isits Requested Visits Authorized [id number] Closed Auto-Generate d Referral 08/29/2022 09/28/2023 1 1 * Diagnostic Procedure Only (Urgent) - Closed Specialty Diagnoses / Procedures Referred By Contmercedes t Referred To Contact XR IMAGING Diagnoses Lower extremity injury, left, initial encounter Procedures XR ANKLE GENERAL 3V AP/LAT/OBL LEFT RADEX ANKLE COMPLETE MINIMUM 3 VIEWS Maynor Calles APRN.GUN STRIPER [address] [place] [address] Xr Imaging Referral ID Status Reason Start Date Expiration Date V isits Requested Visits Authorized [id number] Closed Auto-Generate d Referral 08/29/2022 09/28/2023 1 1 [facility] Summary Purpose Family History No Family History Records FoundNo Family History Records Found No data available for this section No data available for this section No Family History Records FoundNo Family History Records Found Advance Directives No Advanced Directives Records FoundNo Advanced Directives Records FoundNo Advanced Directives Records FoundNo Advanced Directives Records Found Health Concerns Infection Onset Date Last Indicated Resolved Time COVID-19 Rule-Out 09/25/2021 09/25/2021 Infection Onset Date Last Indicated Resolved Time COVID-19 Rule-Out 09/25/2021 09/25/2021 09/25/2021 11:53 PM EDT Infection Onset Date Last Indicated Resolved Time COVID-19 Rule-Out 05/05/2022 05/05/2022 Medications Administered Section Inactive Administered Medications - up to 3 most recent administrations Medication Order MAR Action Action Date Dose Rate Site keTORolac 60 mg injection (Toradol) 60 mg, INTRAMUSCULAR, ONCE, 1 dose, On Kianna 12/07/22 at 1730, Ketorolac (Toradol) is indicated for the short-term (up to 5 days) management of moderately severe acute pain. Continuation of ketorolac (Toradol) beyond 5 days increases the risk of developing serious adverse events. Please verify the duration of therapy for ketorolac (Toradol)., If ordered PRN for pain, patient/guardian may elect to receive this medication for higher pain levels INSTEAD of the opioid, if preferred: Yes Given 12/07/2022 5:50 PM EDT 60 mg Buttocks, Left Additional Source Comments INFORMATION SOURCE (unrecogn ized section and content) DATE CREATED AUTHOR AUTHOR'S ORGANIZ ATION 06/05/2020 [facility] [place] DATE CREATED AUTHOR AUTHOR'S ORGANIZ ATION 05/26/2023 [facility] ([place]) DATE CREATED AUTHOR AUTHOR'S ORGANIZ ATION 06/08/2023 [facility] Source Comments (unrecognize d section and content) In the event this informatio n is protected by the Federal Confidentiality of Alcohol and Drug Abuse Patient Records regulations: The Federal rules restrict any use of the information to criminally investigate or prosecute any alcohol or drug abuse patient.[facility] the event this information is protected by the Federal Confidentiality of Alcohol and Drug Abuse Patient Records regulations: The Federal rules restrict any use of the information to criminally investigate or prosecute any alcohol or drug abuse patient.[facility] the event this information is protected by the Federal Confidentiality of Alcohol and Drug Abuse Patient Records regulations: The Federal rules restrict any use of the information to criminally investigate or prosecute any alcohol or drug abuse patient.[facility] the event this information is protected by the Federal Confidentiality of Alcohol and Drug Abuse Patient Records regulations: The Federal rules restrict any use of the information to criminally investigate or prosecute any alcohol or drug abuse patient.[facility] the event this information is protected by the Federal Confidentiality of Alcohol and Drug Abuse Patient Records regulations: The Federal rules restrict any use of the information to criminally investigate or prosecute any alcohol or drug abuse patient.[facility] the event this information is protected by the Federal Confidentiality of Alcohol and Drug Abuse Patient Records regulations: The Federal rules restrict any use of the information to criminally investigate or prosecute any alcohol or drug abuse patient.[facility] Hospital[facility] the event this information is protected by the Federal Confidentiality of Alcohol and Drug Abuse Patient Records regulations: The Federal rules restrict any use of the information to criminally investigate or prosecute any alcohol or drug abuse patient.[facility] the event this information is protected by the Federal Confidentiality of Alcohol and Drug Abuse Patient Records regulations: The Federal rules restrict any use of the information to criminally investigate or prosecute any alcohol or drug abuse patient.[facility] the event this information is protected by the Federal Confidentiality of Alcohol and Drug Abuse Patient Records regulations: The Federal rules restrict any use of the information to criminally investigate or prosecute any alcohol or drug abuse patient.[facility] the event this information is protected by the Federal Confidentiality of Alcohol and Drug Abuse Patient Records regulations: The Federal rules restrict any use of the information to criminally investigate or prosecute any alcohol or drug abuse patient.[facility] Hospital[facility] the event this information is protected by the Federal Confidentiality of Alcohol and Drug Abuse Patient Records regulations: The Federal rules restrict any use of the information to criminally investigate or prosecute any alcohol or drug abuse patient.[facility] the event this information is protected by the Federal Confidentiality of Alcohol and Drug Abuse Patient Records regulations: The Federal rules restrict any use of the information to criminally investigate or prosecute any alcohol or drug abuse patient.[facility] Hospital[facility] the event this information is protected by the Federal Confidentiality of Alcohol and Drug Abuse Patient Records regulations: The Federal rules restrict any use of the information to criminally investigate or prosecute any alcohol or drug abuse patient.[facility] Reason for Visit (unrecogniz ed section and content) Reason Comments Cough cough, ST, diarrhea and vomiting x 5-6 days Reason Comments Sore Throat pain rated 1, x1 wk, nasal congestion, N/V, Lynne pain rated 6 Specialty Diagnoses / Procedures Referred By Contac t Referred To Contact [facility] / [facility] Diagnoses Sore throat Vomiting Fever sore throat, congestion, vomiting, fever Procedures OFFICE/OUTPATIENT ESTABLISHED MOD MDM 30-39 MIN EST SAME DAY MD Stevan Crespo Jonathan, VENEER JOINTER RETURNER.GUN STRIPER [address] [place] [address] Referral ID Status Reason Start Date Expiration Date Visits Re quested Visits Authorized [id number] Closed 01/10/2022 06/24/2022 1 1 Reason Comments Results Reason Comments Strep Test Strep throat, cough x 2 days Specialty Diagnoses / Procedures Referred By Contac t Referred To Contact [facility] Medicine / [facility] Diagnoses Strep throat Strep throat Procedures OFFICE/OUTPATIENT NEW MODERATE MDM 45-59 MINUTES NEW SAME DAY MD Jd Crespo Jeffrey, VENEER JOINTER RETURNER.GUN STRIPER [address] [place] [address] Referral ID Status Reason Start Date Expiration Date Visits Re quested Visits Authorized [id number] Closed 03/06/2022 06/24/2022 1 1 Reason Comments Cough Pt reported chest co ngestion , x3 days. Specialty Diagnoses / Procedures Referred By Contac t Referred To Contact [facility] Diagnoses rsv exposure, rattling in chest, congestion, cough x2 days Procedures NEW SAME DAY [facility] [address] [id number] Referral ID Status Reason Start Date Expiration Date V isits Requested Visits Authorized [id number] Outside PCP 05/05/2022 07/04/2022 1 1 Reason Comments Pain Pt denied fall, inju ry back pain rated 9, x1 day. Specialty Diagnoses / Procedures [facility] Diagnoses severe back pain x1 days woke up with it Procedures NEW SAME DAY [facility] [address] [id number] Referral ID Status Reason Start Date Expiration Date V isits Requested Visits Authorized [id number] Outside PCP 05/11/2022 07/10/2022 1 1 Reason Comments Sore Throat Swollen tonsils x 4 days Reason Comments Diarrhea Diarrhea x 1 day and vomiting and congestion started this am Specialty Diagnoses / Procedures [facility] To [facility] Diagnoses Congestion and hemorrhage of prostate Vomiting Diarrhea Room 10 - congestion, vomiting, diarrhea, Procedures OFFICE/OUTPATIENT ESTABLISHED MOD MDM 30-39 MIN EST SAME DAY [facility] [address] [address] [place] [address] Referral ID Status Reason Start Date Expiration Date Visits Re quested Visits Authorized [id number] Closed 06/21/2022 06/24/2022 1 1 Reason Comments Pain (foot) left foot pain and b ruising x 1 day, tripped over baby toy Specialty Diagnoses / Procedures [facility] To [facility] Diagnoses left foot pain and brusing, tripped over baby toy yesterday Procedures NEW SAME DAY [facility] [address] [place] [address] Referral ID Status Reason Start Date Expiration Date V isits Requested Visits Authorized [id number] Outside PCP 08/29/2022 11/27/2022 1 1 Reason Comments Back Pain Pt denied urinary sx s, reported 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 Specialty Diagnoses / Procedures Referred By Contac t Referred To Contact Internal Medicine / [facility] Diagnoses Lower back pain lower back pain Procedures OFFICE/OUTPATIENT ESTABLISHED MOD MDM 30-39 MIN EST SAME DAY Self Preehti Nagy, ZACHARY.GUN STRIPER [address] [place] [address] Referral ID Status Reason Start Date Expiration Date Visits Re quested Visits Authorized [id number] Closed 12/07/2022 06/24/2023 1 1 Reason Comments Low Back Pain x 2 months Care Teams (unrecognized sec tion and content) Manganese Heater Relationship Specialty Start Date End Date Ashanti Lewis DO [address] [place] [address] PCP - General Family Medicine 06/07/22 Manganese Heater Relationship Specialty Start Date End Date Ashanti Lewis DO [address] [place] [address] PCP - General Family Medicine 06/07/22 Manganese Heater Relationship Specialty Start Date End Date Ashanti Lewis DO [address] [place] [address] PCP - General Family Medicine 06/07/22 Manganese Heater Relationship Specialty Start Date End Date Ashanti Lewis DO [address] [place] [address] PCP - General Family Medicine 06/07/22 Care Team (unrecognized sect ion and content) Care Team Personnel Name: ASHANTI LEWIS DO Position: P4 Physician - Primary Care Med Service: Active Provider Member Role: Primary Care Physician Address: Address: [address] [place] [address] Physicians [place] [id number] Care Team Related Persons Name: SAL COSME Address: Home [address] [place], [place] [id number] Address: Temporary [address] [place], [place] [id number] Name: MIREILLE COSME Address: Home [address] [place], [place] [id number] Care Team Personnel Name: ASHANTI LEWIS DO Position: P4 Physician - Primary Care Member Role: Primary Care Physician Address: Address: [address] [place] [id number] Care Team Related Persons Name: SAL COSME Address: Home [address], [place] [id number] Address: Temporary [address] [place], [place] [id number] Name: MIREILLE COMSE Address: Home [address] [place], [place] [id number] FOR RECORDS PERTAINING TO PATIENTS WHO ARE OR HAVE BEEN ENROLLED IN A CHEMICAL DEPENDENCY/SUBSTANCEABUSE PROGRAM, SOME INFORMATION MAY BE OMITTED. This clinical summary was aggregated from multiple sources. Caution should be exercised in using it in the provision of clinical care. This summary normalizes information from multiple sources, and as a consequence, information in this document may materially change the coding, format and clinical context of patient data. In addition, data may be omitted in some cases. CLINICAL DECISIONS SHOULD BE BASED ON THE PRIMARY CLINICAL RECORDS. [facility] [employer] [facility]. provides no warranty or guarantee of the accuracy or completeness of information in this document.
[2023-07-17 20:41] LABS: Internal QC Validated? YES +Cl - CLEAR BKGD; Pregnancy, Serum, hCG Quali. NEGATIVE Negative
[2023-07-17 20:44] LABS: Amphetamine Urine VISTA NEGATIVE (<1000 ng/mL); Barbiturate Urine VISTA NEGATIVE (< 200 ng/mL); Benzodiazepine Urine VISTA NEGATIVE (< 200 ng/mL); Cocaine Urine VISTA NEGATIVE (< 300 ng/mL); Ecstacy Urine VISTA NEGATIVE (< 500 ng/mL); Methadone Urine VISTA NEGATIVE (< 300 ng/mL); PCP Urine VISTA NEGATIVE (< 25 ng/mL); THC Urine VISTA NEGATIVE (< 50 ng/mL); Vista UDS pH Range 5
[2023-07-17 20:48] LABS: Alcohol, Blood (Medical)-Serum < 3.0 mg/dL
[2023-07-17 20:49] LABS: ALB/GLOB Ratio 0.9 RATIO (0.9-2.4); AST(SGOT) 15 U/L (15-37); Alanine Aminotransfer ALT/SGPT 21 U/L (13-56); Albumin, Serum 3.6 g/dL (3.2-5.0); Alkaline Phosphatase 94 U/L (45-117); Anion Gap 6 (5-15); BUN 22 mg/dL (7-18); BUN/Creat Ratio 25.1 RATIO (10-20); Calcium,Total 9.1 mg/dL (8.5-10.1); Chloride 108 mmol/L (98-107); Creatinine, Serum 0.88 mg/dL (0.55-1.02); EST Glomerular Filtration Rate 87 mL/min (>60); Est Glom Filt Rate - Afr Amer 105 mL/min (>60); Estimated Creatinine Clearance 133.87 ml/min; Glucose 95 mg/dL (74-106); Potassium 3.8 mmol/L (3.5-5.1); Protein, Total 7.6 g/dL (6.4-8.2); Sodium Level 137 mmol/L (136-145)
[2023-07-17 21:17] VITALS: RESP 16; O2SAT 97
[2023-07-17 22:00] VITALS: RESP 14; O2SAT 98
[2023-07-18 01:41] VITALS: BP 122/79; PULSE 71; RESP 16; O2SAT 97
== END 2023-07-18 01:42 | disposition home or self-care (01) ==
PROVIDERS: Emergency Provider Emergency Medicine; PCP Student in an Organized Health Care Education/Training Program; Visit Provider Emergency Medicine
DX: R45.851 Suicidal ideations (principal); F41.9 Anxiety disorder, unspecified; F32.A Depression, unspecified; F17.290 Nicotine dependence, other tobacco product, uncomplicated; Z79.899 Other long term (current) drug therapy
CPT/HCPCS: 80053; 80307; 80320; 84703; 85025; 87811; 99285; G0480

== ENCOUNTER 2023-08-07 08:00 | Outpatient (RCR) | payer OTHER, SELFPAY ==
--- NOTE | 2023-08-07 09:05 | BH.SGPN.GN ---
Behaviors/Verbalizations/Mental Status: [] Eye contact is good. Motor activity is appropriate. Appearance is casual. Speech is Appropriate. Mood is anxious. Affect is congruent. Thoughts are linear and logical. No evidence of psychosis. Reviewed daily check in sheet and pt reports 1/5 for suicidal thoughts and 1/5 for intent. Completed [place] [facility] Scre[facility] prior to group. Client Response/Progress/Benefit: [] Pt participated at times during group discussions. Attentive. This was pt's first day in IOP level of care. She briefly introduced herself and states that she entered the program to work on her depression and anxiety. Limited disclosure as this was her first day. Peers introduced themselves and provide feedback and suggestions for her first day/week in the program which was beneficial. Will continue in [facility] to maintain safety, increase healthy coping, and to stabilize mood. Narrative Note: []
--- NOTE | 2023-08-07 10:10 | BH.SGPN.GN ---
Behaviors/Verbalizations/Mental Status: []Pt alert and oriented, neatly dressed and groomed. Eye contact good. Motor activity appropriate. Speech within normal limits. Affect congruent, mood anxious. Thoughts linear, logical, no signs of hallucinations or delusions. Client Response/Progress/Benefit: [] Pt active participant AEB pt providing input throughout group discussion. Pt attentive during psychoeducation about defense mechanisms. Showed engagement during small group discussions and helped group identify which defense mechanisms were maladaptive, adaptive, or ?somewhere in the bess.? Pt started to work with group on identifying how each defense mechanism can impact mental health and gave examples. Pt was quiet as it was pt?s first day, but pt was engaged during small group discussion. ?Seemed to benefit from gaining awareness about the different defense mechanisms. Pt to continue IOP tx to prevent decompensation, improve daily functioning, and increase mood stability. ? Narrative Note: []
--- NOTE | 2023-08-07 14:26 | BH.MTP ---
Master Treatment Plan Patient Information Program Physician:: Dr. Nathan Primary Therapist:: Barbara Escobar, [facility] Psychiatric Diagnoses Psychiatric Diagnoses:: 1. Major depressive disorder, recurrent, severe without psychosis F33.2 2. OCD 3. OLGA 4. Cluster B traits Diagnosis Code(s):: F33.2 Estimated LOS Estimated LOS (in weeks):: 6 Problem/Goal #1 Problem/Goal #1 Stated Goal:: Client will reduce depression, feelings of hopelessness, and suicidal ideation due to Major Depressive Disorder through Intensive Outpatient Program. Description of Barriers: Potential treatment barriers include: intrusive thoughts, negative thought patterns, low energy, poor sleep, and difficulty making decisions. Functional Impact: The patient is a 22-year-old single female with a history of depression, anxiety, ADHD and OCD who was referred to the [facility] behavioral health IOP by her outpatient team in [facility] ER for worsening depression and suicidal ideation. The patient presented to the emergency room on July 18, 2023 with worsening depression and fleeting suicidal ideation and was referred to the IOP. She has been depressed for about a month and has had symptoms daily. Current stressors include work and life stress. She and her partner broke up in April 2023 and the symptoms then started worsening. She was admitted to [facility] for active suicidal ideations with a plan to overdose after being stable from April 2023 to June 2023. She endorses guilt, low energy, worthlessness, recent passive suicidal ideation 10 days ago with a plan to overdose. She has OCD with cleanliness obsessions and rituals of washing her hands obsessively, putting 10 swipes of deodorant on and showering with certain rituals. Objectives Objective #1: Stated Objective: Client will learn and utilize 2-3 healthy coping strategies to manage depressive symptoms. Interventions: Therapist will utilize CBT techniques to assist client with understanding the connection between thoughts, feelings and behaviors. Education will be provided on behavioral activation. Therapist will assist client in learning internal coping strategies to manage depressive symptoms, along with helping client identify triggers. Discharge Criteria: Client will have achieved this goal when can verbalize and has practiced at least 2 healthy coping strategies that successfully manage depressive symptoms. Target Date: 09/18/23 Review Date: 09/04/23 Objective #2: Stated Objective: Client will identify and replace 2-3 negative thinking patterns that reinforce depressive symptoms. Interventions: Therapist and group sessions will assist client in developing an awareness of the cognitive messages that reinforce depressive thinking. Therapist and group therapy will also assist client in challenging negative thinking patterns. Discharge Criteria: Client will have achieved this goal when can identify at least 2 negative thinking patterns, replace negative thinking with more positive, affirmative messages. Target Date: 09/18/23 Review Date: 09/04/23 Problem/Goal #2 Problem/Goal #2 Stated Goal:: Client will reduce overall frequency, intensity, and duration of anxiety so that daily functioning is not impaired. Description of Barriers: Potential treatment barriers include: intrusive thoughts, negative thought patterns, low energy, poor sleep, and difficulty making decisions. Functional Impact: The patient is a 22-year-old single female with a history of depression, anxiety, ADHD and OCD who was referred to the [facility] behavioral health IOP by her outpatient team in [facility] ER for worsening depression and suicidal ideation. The patient presented to the emergency room on July 18, 2023 with worsening depression and fleeting suicidal ideation and was referred to the IOP. She has been depressed for about a month and has had symptoms daily. Current stressors include work and life stress. She and her partner broke up in April 2023 and the symptoms then started worsening. She was admitted to [facility] for active suicidal ideations with a plan to overdose after being stable from April 2023 to June 2023. She endorses guilt, low energy, worthlessness, recent passive suicidal ideation 10 days ago with a plan to overdose. She has OCD with cleanliness obsessions and rituals of washing her hands obsessively, putting 10 swipes of deodorant on and showering with certain rituals. Objectives Objective #1: Stated Objective: Pt will identify 2-3 anxiety and OCD triggers and 2 coping skills to use to manage anxiety as shown by reducing DSM-5 scores for anxiety and OCD. Interventions: Through group and individual sessions, pt will gain awareness of anxiety and OCD triggers and learn numerous techniques to manage anxiety and OCD symptoms. Therapist will teach mindfulness and other calming techniques to manage symptoms and increase distress tolerance skills. Therapist will also help pt utilize mindfulness skills to sit with the uncomfortable to increase confidence in managing triggers. Discharge Criteria: Pt will have met this goal when pt can identify at least 2 triggers and 2 ways to cope with anxiety and show a reduction of DSM-5 scores for anxiety and OCD. Target Date: 09/18/23 Review Date: 09/04/23 Objective #2: Stated Objective: Client will identify 2-3 intrusive/ruminating thoughts and learn 2-3 strategies to overcome, replace, or reduce the value of those thoughts. Interventions: Therapist will help client increase awareness of cognitive distortions, false comfort, and myths about intrusive thoughts. Therapist will utilize distractions, mindfulness, and CBT-based strategies to help client learn how to more effectively manage and cope with his intrusive thoughts. Discharge Criteria: Client is able to identify at least 2 intrusive/ruminating thoughts and use of healthy strategies that reduce anxious thought patterns. Target Date: 09/18/23 Review Date: 09/04/23
--- NOTE | 2023-08-07 14:59 | BH.MDN_ITS ---
Multi-Disciplinary Note Note 45-min Individual: Time Started:: 10:20 Date: 08/07/23 Purpose of session/treatment goals addressed:: Purpose of session was to assess current symptoms and stressors, gather background information, and identify treatment goals for [facility]. Eye Contact:: Fair Motor Activity:: Restless Appearance:: Casual Speech:: Appropriate Mood:: Euthymic and Anxious Affect:: Congruent Thoughts:: Linear, Logical and No evidence of hallucinations/delusions noted Staff Interventions:: CBT techniques, rapport building, strengths perspective and goal setting Client Response:: Client responded well to session as evidenced by client openly sharing thoughts and feelings. Client shared she was referred to [facility] by [facility] emergency department in end of June due to having suicidal thoughts but no intention or plan to harm self so she was not hospitalized. Client stated she was hospitalized end of April 2023 for suicidal thoughts with plan to take medications to overdose. Client reported she had told a friend she was feeling suicidal and the friend stayed with client until client could meet with her therapist the next day. Clients therapist recommended client go to the emergency department and then she was admitted to inpatient psychiatric unit. Client reported suicidal thoughts was triggered by a breakup after being together for three years. Client stated she is the one that ended the relationship but it really hit her a couple weeks later which resulted in the increased suicidality. Client reported she has struggled with depression off and on for the last two years with the last couple of months being the worst she's been in a while. No previous hospitalizations with April being her first. Client shared history of non suicidal self injurious behavior in the past with most recent self harm about three to four months ago. Client endorsed depressed mood, low energy, poor sleep, some hopelessness, guilt, some decrease in concentration, and feelings of worthlessness. Client stated she does have some obsessions and compulsions about cleanliness. Client reported she does wash your hands about five to seven times a day which is a decrease because previously she'd wash them 20 times a day until her hands are raw. Client stated when she showers if she doesn't do it the correct way she will have to start over. Client stated at this time her obsessive and compulsive behaviors don't hinder her functioning or make it harder to get to places on time. Client reported while she is in [facility] she'd like to learn healthier coping skills to manage life stressors and learn how to manage her anxiety and depression more effectively. Client stated she does have a supportive mom and a good network of friends. Client reported she does not have any contact with her biological dad in the last three months. Client stated she feels some abandonment from him when she was a child and he struggled with addiction when she was young. Risks/Concerns:: Client denies active suicidal ideation, plan, or intention to date. future oriented. Progress Toward Goals/Plan:: No progress noted, first day in IOP. Client admitted to IOP due to referral from ER social and political studies professor for client's suicidal thoughts and decrease in functioning. Client was hospitalized for suicidal thoughts in April 2023. Client feels able to maintain safety. Expresses desire to learn healthy coping skills to manage emotions, stressors, and mental health more effectively. Client is to continue IOP to improve daily functioning, increase healthy coping, and prevent decompensation. Time Stopped:: 12:00
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
--- NOTE | 2023-08-08 09:00 | BH.SGPN.GN ---
Behaviors/Verbalizations/Mental Status: [Patient was alert and oriented, appropriately dressed and groomed. Eye contact was good, motor activity normal, speech within normal limits. Affect congruent, mood content. Thoughts linear, logical, no signs of hallucinations or delusions. Reviewed Patients symptom tracker and the patient reports low/moderate in anxiety/panic attacks and low in depressed mood and risk of suicide. Patient does not report symptoms of agitation/irritability/anger, self-harm urges or thoughts of suicide. Patient will be checked in with due to the low risk of suicide and no risk for self-harm or thoughts of suicide to ensure safety.] Client Response/Progress/Benefit: [Patient was engaged and open to the discussion. Patient reported her mood to be ?tired?. Patients first win is that she got a new bearded dragon recently and has started to khan with it. She said that she feels ?sort of silly? for making mini salads for her pet but that has been feeling more positive since getting her. Patients second win is that she hung out with a friend that she has not seen in awhile and they had a good time. Patients stressor is that she has not been sleeping due to her insomnia. She shared that she was on a medication that helped ?too well? and had to be taken off it because she kept passing out throughout the day. Patient was interactive and respectful with other group members about their mental wins and stressors. Patient benefited from the discussion by listening to feedback and giving input on her peer?s stressors and mental health wins. Patient will continue with IOP treatment to help develop healthy skills, promote mood stability, and improve distress tolerance. ] Narrative Note: []
--- NOTE | 2023-08-08 09:10 | BH.NA_ITS ---
Physical Data Vital Signs Pulse Rate: 78 Blood Pressure: 137/78 Height/Weight Height: 1.75 m Weight:: 106.594 kg Weight in Pounds: 235.0 lbs Current Medication Compliance Medication Compliance Do you take your medication as prescribed?: Yes (client states she has now been compliant since the ER on 07/18) Nutritional History Appetite Nutritional Instructions: Describe your appetite:: Good Additional nutritional information:: Client denies change in weight or appetite. Functional Assessment Sleep Pattern Describe any problems with sleeping: Client states she has been sleeping 2-4 hours per night since she stopped taking her Remeron. Sensory/Communication Assess Communication Problems Do you have difficulty understanding what people are saying?: No Medical Problems/History Respiratory Conditions Respiratory: Asthma (does not have an inhaler, has not had an asthma attack since she was a kid) Pain Assessment Do you have acute or chronic pain?: No Surgical History Surgical History Have you had any surgeries? If so, list type and date:: Yes (tonsillectomy 11/2022 ) Substance Abuse Substance Abuse Please describe substance abuse in the last 30 days:: Client states she drinks alcohol 2-3 times per month. Client states she has been vaping tobacco since age 19. Client states she uses marijuana 3-4 times per month. Client states she rarely drinks caffeine, but occasionally will have an energy drink. Mental Status Summary Mental Status Significant Findings/Observations on Appearance and Mood:: Client is alert and oriented x 4. Client is casually groomed. Client is cooperative with assessment. Client makes good eye contact. Client's voice has normal rate and volume. Client has a somewhat restricted affect. Client makes logical associations and has normal processing. Client denies delusions/hallucinations. Client denies SI this day, states she has had one passive thought of SI in the last week. Suicide Assessment Suicidal Ideation Are you currently or have you been suicidal in the past?: Yes Suicidal Intentional Rating Scale (SIRS): Suicidal thoughts (past) (denies SI this day, states she had passive SI earlier in the week) Physician Notification Past Psychiatric History MH Treatment Hx Past Psychiatric Medications:: Wellbutrin- increased SI, Remeron- caused her to pass out, Adderall for ADHD as a kid Age of first mental health symptoms: Client states she was diagnosed with ADHD around age 8 in first grade. Client previously has been on Adderall but is not now. Client states she has felt anxious and depressed for a long time, but recently started on medications for mental health in the last year. Describe (age, circumstance, etc) any past hospitalizations: April 2023- for SI with a plan. Client does have a history of suicide attempts. Client was in the ER on 07/18/23 for depression and thoughts of SI with thoughts of methods and was seen by Crisis. Current providers for mental health treatment (counselor, psychiatrist, child support case officer, etc.): Counselor jaelyn Joshua, psychiatrist Esdras Farrell LIC[employer]ED SOCIAL WORKER at [facility] Fall Risk Assessment Age Age: Less than 60 Mental Status Mental Status: Willing & able to ask for assistance when needed Physical Status Physical Status: No problems Impairments Impairments: None Elimination Elimination: Continent AND independent Gait or Balance Gait or Balance: Walks independently Hx of Falls History of falls in the past 6 months: No known history Medications/Substances Psychotropics:: Antidepressants and Antipsychotics Medications/substances used within the past 24 hours or ordered to administer: 1-2 of the medications/substances listed above Total Score Total Points:: 1 RN Summary of Impressions Impressions Recommendations Impressions: Psychiatric Issues: 1. Major depressive disorder, recurrent, severe without psychosis 2. OCD 3. OLGA 4. Cluster B traits Level of Care How do the client's current symptoms and functional deficits support need for this level of care?: Client was referred to IOP after a recent ER visit on 07/18/23 where she was seen by Crisis for suicidal ideations with thoughts of methods. Client was not hospitalized at that time, but did have a hospitalization in April 2023 for SI. Client states she had not been regularly compliant with her medication which she thinks lead to her instability. Client does have a history of self harm, and states she last harmed about a month ago. Client does report panic attacks about weekly. Client denies SI today, and states she has had one passive thought of SI in the last week. IOP will promote gains and prevent further decompensation while providing social support and skills training.
[2023-08-08 09:25] VITALS: BP 137/78; PULSE 78
--- NOTE | 2023-08-08 10:00 | BH.SGPN.GN ---
Behaviors/Verbalizations/Mental Status: [] Client alert and oriented, casually dressed and groomed. Eye contact good. Motor activity appropriate. Speech within normal limits. Affect congruent, mood euthymic. Thoughts linear, logical, no signs of hallucinations or delusions. Client Response/Progress/Benefit: []Client responded well to session AEB sharing and listening attentively to others. Group provided examples of benefits of having social support, including: ability to process emotions with, security, and community. Client also participated in group discussion regarding the barriers to accessing support including personal examples like: self sabotage, lack of communication, and over using certain supports. Client participated in experiential activity illustrating the impact communication, boundaries, and patience play in creating healthy support systems. Client appeared to benefit from increased knowledge of the benefits of social support and greater self-awareness. Will continue IOP tx to prevent decompensation,increase self care, and improve overall functioning. Narrative Note: []
--- NOTE | 2023-08-08 11:00 | BH.SGPN.GN ---
Behaviors/Verbalizations/Mental Status: [] Client alert and oriented, casually dressed and groomed. Eye contact good. Motor activity appropriate. Speech within normal limits. Affect congruent, mood euthymic. Thoughts linear, logical, no signs of hallucinations or delusions. Client Response/Progress/Benefit: [] Client was an active participant throughout AEB contributing to discussion, providing personal examples, and taking notes. Client processed emotions felt in the activity and how they coped in the moment. Client provided input during discussion on the types of support our supports can provide. Client able to identify current support system and barriers that get in the way of using supports by drawing out their own support net. Client reported after identifying what type of supports they receive; they gained awareness that they could benefit from more social supports. Client identified steps to achieve this by reaching out more, joining community groups, and talk to people with learning more about them. Client shared increasing social supports will help them feel less isolated and have more friends. Client seemed to benefit from identifying the type of support client needs to work on improving. Client recommended to continue IOP tx to prevent decompensation,increase overall all fuctioning and increase emotional regulation skills. Narrative Note: []
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
--- NOTE | 2023-08-08 13:19 | BH.DR.ITP ---
Initial Treatment Plan Patient Information Visit Information: ADMISSION DATE: EXPECTED LOS: 4-6 weeks Problems/Symptoms Problem #1:: Depression Symptom:: Sadness, worthlessness, guilt, passive thoughts of , recent passive suicidal ideation, anhedonia, biological disruption of sleep, low energy Problem #2:: Anxiety Symptom:: Worry, rumination, panic attacks, obsessions and rituals related to cleanliness
--- NOTE | 2023-08-09 09:05 | BH.SGPN.GN ---
Behaviors/Verbalizations/Mental Status: [] Eye contact is good. Motor activity is appropriate. Appearance is casual. Speech is Appropriate. Mood is depressed. Affect is congruent. Thoughts are linear and logical. No evidence of psychosis. Reviewed daily check in sheet and no reports of suicidal ideations or intent. Client Response/Progress/Benefit: [] Pt was an active participant in group discussions. Attentive. Daily symptom tracker notes 2/5 for anxiety and 1/5 for depression. No SI noted today which is improvement from earlier this week. Shared with the group that she is having significant anxiety about her future. She elaborated in more detail regarding her stressors and the impact the anxiety has on her which mainly results in avoidance and isolation. Group provided support, encouragement, and feedback which helped her process her emotions, frustrations, and thoughts. Overall she believes that she is managing her emotions more effectively since starting IOP. Primary coping skill is distraction at this moment. Will continue in IOP to prevent decompensation/re-admission to psych unit, increase healthy coping, and to stabilize mood. Narrative Note: []
--- NOTE | 2023-08-09 10:05 | BH.SGPN.GN ---
Behaviors/Verbalizations/Mental Status: []Pt alert and oriented, neatly dressed and groomed. Eye contact fair. Motor activity restless-fidgeting with a fidget toy. Speech within normal limits. Affect congruent, mood anxious. Thoughts linear, logical, no signs of hallucinations or delusions. Client Response/Progress/Benefit: [] Pt was engaged and open to the discussion and appeared to respond well to the group. Pt used active listening and gave feedback during group discussion. Group discussed what contributes to a person?s perspective and how perspective can positively or negative impact mental health treatment. Pt shared their perspective today is still hopeful, but a little negative due to feeling unsure about what to do about her job. Pt appeared to benefit from increasing awareness of different perspectives and how they can affect mental health. Pt will continue IOP treatment to prevent decompensation, improve emotional regulation skills, and increase ability to manage stressors. ??? Narrative Note: []
--- NOTE | 2023-08-09 11:15 | BH.SGPN.GN ---
Behaviors/Verbalizations/Mental Status: []Pt alert and oriented, casually dressed and groomed. Eye contact fair to good. Motor activity appropriate. Speech within normal limits. Affect constricted, mood depressed, anxious. Thoughts linear, logical, no signs of hallucinations or delusions. Client Response/Progress/Benefit: []Pt was attentive and contributed to group discussion when prompted. Pt worked with group to identify strategies that can help with challenging negative perspective. Pt completed strengths exploration worksheet, identifying curiosity, persistence, love, humor, adventurousness, and patience as personal strengths. Pt able to acknowledge how these strengths are helping pt and can continue to help pt in mental health journey. Pt identified wanting to work on asking other?s to help her reality check as a means of perspective challenging. Benefited from identifying personal strengths and strategies for enhancing use of identified strengths. Pt will continue IOP tx to promote mood stability, increase healthy coping skills, and prevent decompensation. Narrative Note: []
--- NOTE | 2023-08-09 11:42 | BH.MDN ---
Multi-Disciplinary Note Note 30-min Individual: Time Started:: 08:30 Date: 08/09/23 Purpose of session/treatment goals addressed:: Purpose of session was to address goals 1 and 2 from MTP. 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 Client reported she also knows that the validation leader in her classroom is also leaving in the summer so that adds additional layer to feeling guilty about also potentially leaving. Therapist provided psychoeducation about healthy and unhealthy guilt. Client able to identify the current guilt she is feeling is unhealthy because she isn't doing anything and inherently wrong by quitting and taking classes to advance her career. 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 Client started to work with therapist to identify pros and cons of staying at the daycare versus going to EMT classes. For homework client is to complete a decisional balance worksheet to help with her decision making. Client also is to research when EMT classes will be offered in when she needs to register so that she has all the facts before she makes a decision. Client reported she is feeling a little better since starting IOP. Client stated she still struggles significantly with sleep, only getting about 4 hours a night. Client stated she will be starting a sleeping medication tonight and is hopeful that will get her more rest. Risks/Concerns:: Client denies active suicidal ideation, plan, or intention to date. future oriented. Progress Toward Goals/Plan:: Progress noted with client reported slight improvement in mood. Client continuing to report anxious thoughts. Stated she struggles with intrusive self-harm thoughts that she would like to learn how to cope with more effectively. Client continues to struggle with low energy, decreased sleep, depressed mood, racing thoughts, and poor distress tolerance. Client is to continue IOP to improve daily functioning, increase healthy coping skills, and prevent decompensation. Time Stopped:: 09:05
--- NOTE | 2023-08-14 09:00 | BH.SGPN.GN ---
Behaviors/Verbalizations/Mental Status: [] Pt alert and oriented, neatly dressed and groomed. Eye contact good. Motor activity appropriate. Speech within normal limits. Affect congruent, mood euthymic. Thoughts linear, logical, no signs of hallucinations or delusions. Reviewed pt?s symptom tracker, no risk for suicidal ideation, plan, or intent 08/14/23 Client Response/Progress/Benefit: []Pt responded well to session, attentive and engaged. Pt reports feeling energized this morning and shared that she got to spend time with her dog and cuddle with her pet lizard. Pt reports she is anxious as well because she had to miss work recently and when pt misses work she does not get paid. Pt feels that her job in general is a stressors and pt feels torn about wanting to leave. 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 Pt appeared to benefit from gaining group support and processing her stressors. Pt will continue IOP tx to promote mood stability, reduce negative thinking patterns, and improve daily functioning. Narrative Note: []
--- NOTE | 2023-08-14 11:15 | BH.SGPN.GN ---
Behaviors/Verbalizations/Mental Status: []Pt alert and oriented, casually dressed and groomed. Eye contact good. Motor activity appropriate. Speech within normal limits. Affect congruent, mood depressed and anxious. Thoughts linear, logical, no signs of hallucinations or delusions. Client Response/Progress/Benefit: [] Pt engaged participant AEB listening attentively to others and providing input throughout group. Pt worked within their small group to identify strategies to manage inappropriate guilt. Shared a personal example of inappropriate guilt as not having the ?social battery? to hangout. Insight this cues a fear of disappointing others and leads to over apologizing and reassurance seeking. Pt wants to work on combatting inappropriate guilt by reframing her all or nothing thinking and focusing on self-compassion. Pt seemed to benefit from learning about strategies to manage appropriate and inappropriate guilt. Pt will continue IOP tx to reduce depressive symptoms, improve daily functioning, and increase distress tolerance skills. Narrative Note: []
--- NOTE | 2023-08-16 09:00 | BH.SGPN.GN ---
Behaviors/Verbalizations/Mental Status: [] Eye contact is good. Motor activity is appropriate. Appearance is casual. Speech is Appropriate. Mood is anxious. Affect is congruent. Thoughts are linear and logical. No evidence of psychosis. Reviewed daily check in sheet and no reports of suicidal ideations or intent. Client Response/Progress/Benefit: [] Pt was an active participant in group discussion. Attentive. Daily symptom tracker notes 06/29 for depression/anxiety. Mental health win was that pt used opposite action to get here today . Overall she reports being in a relaxed mood currently. Vented recent stressors and frustrations. Short and superficial check in. Provided appropriate feedback to peers. Progress noted as she reports utilizing coping skills and behavioral activation. Benefited from group support, encouragment, and feedback. Will continue in IOP to prevent decompensation, stabilize mood, and increase healthy coping. Narrative Note: []
--- NOTE | 2023-08-16 10:10 | BH.SGPN.GN ---
Behaviors/Verbalizations/Mental Status: []Pt alert and oriented, casual appearance. Eye contact good. Motor activity appropriate. Speech within normal limits. Affect congruent, mood euthymic. Thoughts linear, logical, no signs of hallucinations or delusions. Client Response/Progress/Benefit: [] Client engaged participant AEB completing self-assessment worksheet and providing input throughout discussion. Client completed worksheet identifying current self-care practices and what self-care activities client wants to start using. Client selected emotional and psychological self-care to begin practicing more consistently. Client plans to do this by socializing and challenging negative thoughts. Appeared to benefit from completing the self-care evaluation and gaining insights into current self-care practices, as well as identifying areas in which client would like to improve upon. Client will continue IOP tx to continue use of healthy coping skills, challenge distortions, and prevent decompensation.
--- NOTE | 2023-08-16 11:10 | BH.SGPN.GN ---
Behaviors/Verbalizations/Mental Status: []Pt alert and oriented, appearance appropriate. Eye contact good. Motor activity appropriate. Speech within normal limits. Affect congruent, mood anxious and content. Thoughts linear, logical, no signs of hallucinations or delusions. Client Response/Progress/Benefit: [] Client engaged participant AEB completing self-assessment worksheet and providing input throughout discussion. Client completed worksheet identifying current self-care practices and what self-care activities client wants to start using. Client selected physical, emotional, and professional self-care to begin practicing more consistently. Client plans to do this by being more consistent with hydrating, discussing her emotions with supports, and ensuring she takes a lunch break at work. Appeared to benefit from completing the self-care evaluation and gaining insights into current self-care practices, as well as identifying areas in which client would like to improve upon. Client will continue IOP tx to promote skill application, maintain mood stability, and prevent decompensation. Narrative Note: []
--- NOTE | 2023-08-17 10:10 | BH.SGPN.GN ---
Behaviors/Verbalizations/Mental Status: []Client alert and oriented, casually dressed and groomed. Eye contact good. Motor activity appropriate. Speech within normal limits. Affect congruent, mood euthymic. Thoughts linear, logical, no signs of hallucinations or delusions. Client Response/Progress/Benefit: []Client receptive to session AEB providing input throughout, listening attentively to others, and taking notes. Attentive throughout psychoeducation on the cognitive triangle and maintenance cycles. Engaged in group discussion reviewing the impact of daily activities and behaviors in either reinforcing unhealthy maintenance cycles and depression or assisting in reducing symptoms (?down? vs ?up? activities). Client identified common ?down? activities they engage in as: staying in bed, doom scrolling, and procrastination. Common ?Up? activities client identified included: happy playlist of music, going outside, and walking. Appeared to benefit from increased awareness of current behaviors and impact these have on mental health. Recommended to continue IOP tx to increase healthy coping skills, improve distress tolerance, and prevent decompensation.
--- NOTE | 2023-08-17 11:15 | BH.SGPN.GN ---
Behaviors/Verbalizations/Mental Status: [] Eye contact is fair to good. Motor activity is appropriate. Appearance is casual. Speech is Appropriate. Mood is content. Affect is congruent. Thoughts are linear and logical. No evidence of psychosis. Client Response/Progress/Benefit: [] Pt responded well to session, attentive and engaged in group discussions and activity. Group discussed values and the benefits that knowing one's values can have on one's mental health. Pt explored own values and identified personal top values. Pt stated a personally important value is family relationships. Client set a goal to improve engagement in this value. Goal identified as eating dinner with her family and having movie or game nights on a more regular basis. Pt appeared to benefit from exploring values and creating a weekly goal. Will continue in IOP to reinforce healthy coping skills, improve distress tolerance, and prevent decompensation. Narrative Note: []
--- NOTE | 2023-08-17 14:01 | BH.MDN ---
Multi-Disciplinary Note Note 45-min Individual: Time Started:: 09:00 Date: 08/17/23 Purpose of session/treatment goals addressed:: Purpose of session was to address goals 1 and 2 from MTP. Eye Contact:: Good Motor Activity:: Appropriate Appearance:: Casual Speech:: Appropriate Mood:: Euthymic Affect:: Congruent Thoughts:: Linear, Logical and No evidence of hallucinations/delusions noted Staff Interventions:: thought challenging, CBT techniques, mindfulness skills, strengths perspective, goal setting and taught coping skills Risks/Concerns:: Denies suicidal ideation, plan, or intention to date. Future oriented. Pt has been having non suicidal self injurious urges the last few days. Pt has been able to stop self in engaging in self-harm behaviors. See above for more information.
--- NOTE | 2023-08-21 09:00 | BH.SGPN.GN ---
Behaviors/Verbalizations/Mental Status: [] Eye contact is good. Motor activity is appropriate. Appearance is casual. Speech is Appropriate. Mood is euthymic. Affect is full. Thoughts are linear and logical. No evidence of psychosis. Reviewed daily check in sheet and no reports of suicidal ideations or intent. Client Response/Progress/Benefit: [] Pt was an active participant in group discussion. Attentive. Daily symptom tracker noted 2/5 for anxiety and 1/5 for self-harm urges. Mental health win reported was I went on a date . Shared that IOP and recent medication changes have been very helpful as she is noting increased motivation and decreased irritability. I'm smiling more . She shared stressors as well noting increase fatigue today. Progress noted per pt report. Benefited from group support, encouragement, and feedback. Will continue in IOP to maintain safety, stabilize mood, and increase healthy coping. Narrative Note: []
--- NOTE | 2023-08-21 10:15 | BH.SGPN.GN ---
Behaviors/Verbalizations/Mental Status: []Pt alert and oriented, casually dressed and groomed. Eye contact good. Motor activity appropriate. Speech within normal limits. Affect congruent, mood content, anxious. Thoughts linear, logical, no signs of hallucinations or delusions. Client Response/Progress/Benefit: [] Pt responded well to session AEB contributing to small group discussion, taking notes, and listening attentively to others. Group discussed the benefits of managed anger and anger as a secondary emotion. Pt shared perspective on personal benefits of anger as getting needs met. Pt completed worksheet on anger triggers and personal warning signs of anger. Pt identified a common trigger as being interrupted or unfairly accused by others. Appeared to benefit from increased knowledge of the anger cycle as well as personal triggers. Will continue IOP tx to promote mood stability, reduce distorted thought patterns and improve self-compassion, and improve daily functioning. Narrative Note: []
--- NOTE | 2023-08-21 11:15 | BH.SGPN.GN ---
Behaviors/Verbalizations/Mental Status: []Client alert and oriented, casually dressed and groomed. Eye contact good. Motor activity appropriate. Speech within normal limits. Affect congruent, mood euthymic. Thoughts linear, logical, no signs of hallucinations or delusions. Client Response/Progress/Benefit: []Pt was engaged throughout AEB contributing to group discussion and self-reflection. Group finished processing cues to anger worksheet. Pt contributed as group brainstormed healthy coping skills for better managing anger which included: music, walking/exercise, taking a break, grounding tools, reflection, and journaling. Pt identified personal anger cycle able to make connections on how own thoughts/evaluations of a situation can worsen anger feelings. Stated will work on belly breathing to help manage heightened emotions. Pt appeared to benefit from identifying different techniques to manage anger as well as gaining awareness of potential consequences of unmanaged anger. Pt to continue IOP to promote use of healthy coping skills, challenge distortions, and prevent decompensation.
--- NOTE | 2023-08-22 09:05 | BH.SGPN.GN ---
Behaviors/Verbalizations/Mental Status: [Patient was alert and oriented, appropriately dressed and groomed. Eye contact was good, motor activity normal, speech within normal limits. Affect congruent, mood content. Thoughts linear, logical, no signs of hallucinations or delusions. Reviewed Patients symptom tracker and the patient reports depressed mood, anxiety/panic attacks, agitation/irritability/anger, self-harm urges, and thoughts/risk of suicide within normal limits.] Client Response/Progress/Benefit: [Patient was engaged and open to the discussion. Patient reported her mood to be ?energized?. Patients first win and stressor are related to the same thing. Patient shared that she is going on a date this weekend that she is both excited and stressed out about. Patient stated that she doesn?t ?how to date? because it?s been so long but thinks it going well. Patients second win is that she has been feeling better and thinks this could be caused from a medication increase and since the sun has been out more. Patient was interactive and respectful with other group members about their mental wins and stressors. Patient benefited from the discussion by listening to feedback and giving input on her peer?s stressors and mental health wins. Patient will continue with IOP treatment to help develop healthy skills, promote mood stability, and improve distress tolerance. ] Narrative Note: []
--- NOTE | 2023-08-22 11:15 | BH.SGPN.GN ---
Behaviors/Verbalizations/Mental Status: [] Pt alert and oriented, neatly dressed and groomed. Eye contact good. Motor activity appropriate. Speech within normal limits. Affect congruent, mood euthymic. Thoughts linear, logical, no signs of hallucinations or delusions. Client Response/Progress/Benefit: []Pt participated in group discussion, drawing, and activity. Worked with group to identify strategies to help overcome barriers and obstacles to desired reality. Group developed strategies for the common barriers of avoidance, feeling burned out, unrealistic expectations, emotional reasoning, and difficulty asking for help. Identified personal barriers to desired reality and choose one obstacle to work on this week which was personalization. Pt plans to do this by catching herself when she personalizes and using thought challenge strategies. Pt seemed to benefit from group by identifying obstacles and solutions to desired reality. Will continue IOP tx to promote mood stability, reduce negative thinking patterns, and reduce avoidance. ? Narrative Note: []
--- NOTE | 2023-08-22 14:00 | BH.MDN_ITS ---
Multi-Disciplinary Note Note 30-min Individual: Time Started:: 10:20 Date: 08/22/23 Purpose of session/treatment goals addressed:: Purpose of session was to address goals 1 and 2 from MTP. Eye Contact:: Fair Motor Activity:: Restless Appearance:: Casual Speech:: Appropriate Mood:: Anxious Affect:: Congruent Thoughts:: Linear, Logical and No evidence of hallucinations/delusions noted Staff Interventions:: thought challenging (cognitive distortions), CBT techniques, mindfulness skills, strengths perspective, goal setting, taught coping skills and other (reviewed healthy relationships) Client Response:: Client reported she has been having weird dreams which started a few days ago. Client stated she is having dreams that she is self- harming and almost dying in her dream. Client reported she will wake up from this nightmare and experience panic like symptoms of heavy breathing, rapid heartbeat, and tight chest. Client reported this is not something she has experienced before and does recognize since having these nightmares her anxiety has worsened. Client reported she has been trying to utilize calming skills like breathing and grounding when she wakes up in a panic like state after a nightmare which she stated has been helpful. Client reported however her sleep is being disrupted so she is feeling more fatigued and low energy throughout the day. 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 Client stated she struggles with personalization if something happens to a kid like if they fall and get hurt which resulted in her feeling a lot of guilt and being herself up. Client connected with psychoeducation about cognitive assertion of personalization and how distorted thought patterns can negatively impact mood and view of self. Therapist and client discussed strategy to help her challenge the thought in the moment like asking herself if this was something that could have been avoided or not. Client connected with thought challenging distortions because she is able to connect negative impact personalization has on her mental health. Therapist worked with client to identify healthy aspects of a relationship since client is starting to date a new person. Discussed importance of maintaining a healthy relationship and recognizing her worth because last relationship was one of the triggers to her suicidal thoughts. Client did report follow through on using breathing and grounding skills when have urges to self-harm, which she stated have been helpful. Risks/Concerns:: Client does report having self-harm urges, but has been able to prevent action on these thoughts by using healthy skills discussed/taught. Client denies active suicidal/homicidal ideation, plan, or intention to date. Progress Toward Goals/Plan:: Progress noted with client reporting utilization of healthy coping skills to help prevent acting on her self-harm urges over the last week. Client does not decompensation with her sleep due to having nightmares associated with self-harm and . Client experiencing increase in panic like symptoms when waking up from these nightmares. Disrupted sleep has been negatively impacting her energy throughout the day. Client is to start implementing calming skills prior to going to sleep. Plan is for client to monitor her nightmares and if nightmares continue will have her see IOP psychiatrist. Client to continue IOP to continue use of healthy coping skills, challenge distortions, and prevent decompensation. Time Stopped:: 10:54
--- NOTE | 2023-08-23 09:02 | BH.SGPN.GN ---
Behaviors/Verbalizations/Mental Status: [] Eye contact good. Motor activity appropriate. Speech within normal limits. Affect congruent, mood euthymic. Thoughts linear, logical, no signs of hallucinations or delusions. Reviewed client?s symptom tracker, denies SI, plan, or intent as of 08/23/2023. Client Response/Progress/Benefit: [] Client receptive of session, attentive and willing to process with group. Identified mental health ?wins? as challenging herself to use opposite action and complete a training she had been assigned for work. Additional win noted as engaging in an activity reinforcing her value of familial relationships by having a ?Girl?s night? with her mother and sister. Reports current stressor as plans to go on a date later this week and is anxious about ?messing something up?. Did well to challenge these thoughts and identify skills to aid in reducing pressure on herself. Client appeared to benefit from group support and encouragement. Recommended continued IOP tx to continue to maintain gains and mood stability, as well as continue to promote consistent skill application, and prevent decompensation. Narrative Note: []
--- NOTE | 2023-08-23 10:15 | BH.SGPN.GN ---
Behaviors/Verbalizations/Mental Status: []Pt alert and oriented, neatly dressed and groomed. Eye contact good. Motor activity appropriate. Speech within normal limits. Affect congruent, mood euthymic. Thoughts linear, logical, no signs of hallucinations or delusions. Client Response/Progress/Benefit: []Pt an active participant throughout. Participated during interactive discussion on defining conflict (internal/external) and possible benefits to conflict. Attentive during psychoeducation on conflict styles and engaged during small group activity in which peers identified the benefits and consequences to each conflict style. Pt identified their primary conflict style as avoiding type. PT stated this style impacts her mental health and relationships because pt does not express her needs, she loses friendships and relationships, people get upset with her, and pt tends to ?lie and hide.? Benefited from increased awareness of the impact of conflict styles in mental health. Will continue IOP tx to promote use of healthy coping skills, improve daily functioning, and increase distress tolerance skills. ? Narrative Note: []
--- NOTE | 2023-08-23 11:10 | BH.SGPN.GN ---
Behaviors/Verbalizations/Mental Status: [] Eye contact is good. Motor activity is appropriate. Appearance is casual. Speech is Appropriate. Mood is euthymic. Affect is full. Thoughts are linear and logical. No evidence of psychosis. Client Response/Progress/Benefit: []Pt was an active participant in group discussions and activity. Attentive during psychoeducation on the benefits and drawback of each conflict style. Along with peers was able to reflect on what conflict resolution skills can be useful outside of IOP. Pt chose to continue to work on the conflict resolution skill of not stonewalling . Shared that she needs to be more collaborative in her communication. Benefited from practicing and learning conflict resolution skills during group activity. Able to relate activity back to group topic. Will continue in IOP to maintain safety, prevent decompensation, and increase healthy coping skills. Narrative Note: []
== END 2023-08-23 23:59 ==
LOC: BHIOP 08:00
PROVIDERS: PCP Student in an Organized Health Care Education/Training Program; Referring Provider Psychiatry & Neurology Psychiatry; Visit Provider Psychiatry & Neurology Psychiatry
DX: F33.2 Major depressive disorder, recurrent severe without psychotic features (principal); F42.9 Obsessive-compulsive disorder, unspecified; F41.1 Generalized anxiety disorder
CPT/HCPCS: S9480; 90832; 90834; 90853

== ENCOUNTER 2023-08-24 06:58 | Outpatient (RCR) | payer OTHER, SELFPAY ==
[2023-08-24 00:21] VITALS: BP 137/78; PULSE 78
--- NOTE | 2023-08-28 09:05 | BH.SGPN.GN ---
Behaviors/Verbalizations/Mental Status: [] Eye contact is good. Motor activity is appropriate. Appearance is casual. Speech is Appropriate. Mood is euthymic. Affect is full. Thoughts are linear and logical. No evidence of psychosis. Reviewed daily check in sheet and no reports of suicidal ideations or intent. Client Response/Progress/Benefit: [] Pt was an active participant in group discussion. Attentive. Pt shared mental health wins which revolved around self-care and completing tasks. Reports insomnia last evening with limited sleep. She was not concerned about this stating sometimes this happens. Reports that she took her evening medication however just never fell asleep. She utilized the time to work on trainings that are required through her employer. Progress noted per pt report. She agreed to keep staff informated of any sleeping issues. Does not present as hypomanic with no rapid/pressured speech, disorganization, excessive energy, euphoria, or irritability. Beneifted from group support, encouragment, and feedback. Will continue in IOP to maintain prevent decompensation/re-admission to psych unit, increase healthy coping, and to stabilize mood. Narrative Note: []
--- NOTE | 2023-08-28 10:10 | BH.SGPN.GN ---
Behaviors/Verbalizations/Mental Status: [] Client alert and oriented, casual appearance. Eye contact good. Motor activity appropriate. Speech within normal limits. Affect congruent, mood euthymic. Thoughts linear, logical, no signs of hallucinations or delusions. Reviewed client?s symptom tracker, no risk for suicidal ideation, plan, or intent. Client Response/Progress/Benefit: [] Pt receptive to session AEB contributing to small group discussion, as well as listening attentively to others, and taking notes. Worked with group to brainstorm the positive and negative aspects of stress on physical and mental health. Group did well to identify the benefits of stress as well as the impact of distress on performance, relationships, and mental health. Pt identified their personal top stressors as: Work, future career plans, and negative thoughts. Pt seemed to benefit from increased awareness of current stressors and impact stress has on mental health. Pt will continue IOP tx to increase consistent utilization of healthy coping skills, improve confidence, and prevent decompensation. Narrative Note: []
--- NOTE | 2023-08-28 11:15 | BH.SGPN.GN ---
Behaviors/Verbalizations/Mental Status: []Pt alert and oriented, casually dressed and groomed. Eye contact good. Motor activity appropriate. Speech within normal limits. Affect congruent, mood euthymic. Thoughts linear, logical, no signs of hallucinations or delusions. Client Response/Progress/Benefit: []Pt was an active participant in group discussions and experiential activity. Attentive during psychoeducation on the 4 A's (Avoid, adapt, alter, accept) of coping with stress. Shared that they would benefit most from working on adapting new patterns of thinking to help pt with their stressor of getting their license. Was able to identify the connection between the experiential activity and utilization of stress management skills. Benefited from increased awareness of stress management strategies. Pt will continue IOP tx to improve mood stability, increase self-confidence, and reduce avoidance. Narrative Note: []
--- NOTE | 2023-08-29 10:15 | BH.SGPN.GN ---
Behaviors/Verbalizations/Mental Status: [] Eye contact is good. Motor activity is appropriate. Appearance is casual. Speech is Appropriate. Mood is euthymic. Affect is full. Thoughts are linear and logical. No evidence of psychosis. Client Response/Progress/Benefit: [] Pt was an active participant during group discussions and group activities. This portion of group was very psychoeducation heavy and pt was attentive during psychoeducation. Engaged during activity in which they identified which type of foods (i.e. carbs, sugar, salt, fast food, caffeine, etc) they seek out when sad, tired, angry, rushed, anxious, etc. Pt was able to identify the impact that certain foods have on their mental health through group example which was beneficial. Benefited from increased awareness of the connection between nutrition and mental health. Will continue in IOP to prevent decompensation, stablize mood, and increase healthy coping skills. Narrative Note: []
--- NOTE | 2023-08-29 10:35 | BH.MDN ---
Multi-Disciplinary Note Note 30-min Individual: Time Started:: 09:25 Date: 08/29/23 Purpose of session/treatment goals addressed:: Purpose of session was to address goals 1 and 2. Eye Contact:: Good Motor Activity:: Appropriate Appearance:: Casual Speech:: Appropriate Mood:: Euthymic Affect:: Congruent Thoughts:: Linear, Logical and No evidence of hallucinations/delusions noted Staff Interventions:: CBT techniques, discharge planning, strengths perspective and goal setting Time Stopped:: 09:45
--- NOTE | 2023-08-29 11:15 | BH.SGPN.GN ---
Behaviors/Verbalizations/Mental Status: []Pt alert and oriented, casually dressed and groomed. Eye contact good. Motor activity appropriate. Speech within normal limits. Affect congruent, mood content. Thoughts linear, logical, no signs of hallucinations or delusions. Client Response/Progress/Benefit: [] Pt was an active participant throughout AEB contributing to group discussion and taking notes. Pt provided input during small group discussion on strategies to combat each factor maintaining adverse nutritional cycles. Worked with group to identify ways to foster more mindful nutritional choices. Each group participant identified one small step they could take today to begin establishing mental wellness promoting nutritional choices. Pt shared plans to?begin meal prepping for the week. Appeared to benefit from gaining insight into mental wellness centered nutrition and identifying personal steps Pt can take to support own nutritional psychology. Recommended continued IOP tx to promote self-care, increase thought challenging, and combat distortions. ? Narrative Note: []
--- NOTE | 2023-08-29 11:25 | PCM.BH.PN_ITS ---
Progress Note Progress Note: History of Present Illness/Interim History: The patient is a 22-year-old single female with a history of depression, anxiety, ADHD and OCD who is seen in follow-up at the [facility] behavioral [facility]. Last saw the patient 3 weeks ago and at that time her Zoloft was increased to 200 mg and Vistaril was added for sleep. The patient feels medication changes have greatly improved her symptoms. She is much less depressed and functioning much better. She feels she is learning also valuable skills from the IOP. Her sleep has improved to 6 to 7 hours a night and this also has caused her to feel much better. She denies any passive thoughts of in the past week or so. OCD symptoms remain relatively unchanged but have been somewhat improved already. She denies suicidal ideation, homicidal ideation, hallucinations or delusions. She is tolerating medications well. Medications:Sertraline 200 mg po daily (x 3 weeks); Vistaril 25 mg po q hs; Abilify 5 mg po daily. Mental Status Examination: []Patient is a 22 yo female who appears normal for stated age and is casually dressed and grooomed with good hygiene. She has no psychomotor agitation or retardation. Eye contact is good and speech is normal rate and fluent with no pressure. Mood is minimally depressed. Affect is full and normal. Thought process is goal-directed and organized. Thought content: there is no evidence of suicidal ideation, thoughts of , homicidal ideation, hallucinations or delusions. Reality testing is intact. Judgment is intact. Impulsivity is low. Insight is good. Diagnoses: [] 1. Major depression, mild 2. OCD 3.OLGA 4. Cluster B traits 5. Primary support and work issues Plan: []The patient may discharge soon from IOP as her condition has improved. She felt safe in interview and agrees to tell us or go to ER if at any time she does not feel safe. No medication changes were made today. Refills were given for Vistaril and Zoloft. She will continue to followup with outpatient providers and I will see the patient in followup while she is in the IOP.
--- NOTE | 2023-08-30 09:00 | BH.SGPN.GN ---
Behaviors/Verbalizations/Mental Status: [] Eye contact is good. Motor activity is appropriate. Appearance is casual. Speech is Appropriate. Mood is euthymic. Affect is full. Thoughts are linear and logical. No evidence of psychosis. Reviewed daily check in sheet and no reports of suicidal ideations or intent. Client Response/Progress/Benefit: [] Pt participated when prompted. Attentive. No significant distress noted on the daily symptom tracker. She reports making a decisions to leave her current job. She elaborated on her reasons which primarily involved flexibility and pay. This change has increased anxiety and guilt which resulted in a panic attack. Emotion for today is stressed. 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 She continue to note that while this change has brought about significant emotions she knows it for best. Benefited from group support, encouragement, and feedback. Will continue in IOP to maintain gains, prevent decompensation, and increase healthy coping skills. Narrative Note: []
--- NOTE | 2023-08-30 10:15 | BH.SGPN.GN ---
Behaviors/Verbalizations/Mental Status: []Client alert and oriented, casually dressed and groomed. Eye contact good. Motor activity appropriate. Speech within normal limits. Affect congruent, mood euthymic. Thoughts linear, logical, no signs of hallucinations or delusions. Client Response/Progress/Benefit: []Pt engaged in session AEB listening attentively to others and providing input throughout group discussion. Pt engaged in activity, able to connect how it can be uncomfortable and difficult to accept when things are out of one?s own control. Pt worked with group to identify what things in life can be hard to accept. Group identified things hard to accept as: disability, caregiving responsibilities, loss of relationship, mental health diagnosis, other?s behaviors, and past decisions. Pt identified struggling to accept changes in her life. Seemed to benefit from increased awareness of importance of acceptance. Pt to continue IOP tx to further improve mood stability, continue to promote application of anxiety management skills, and prevent decompensation. Narrative Note: []
--- NOTE | 2023-08-30 11:10 | BH.SGPN.GN ---
Behaviors/Verbalizations/Mental Status: []Pt alert and oriented, casually dressed and groomed. Eye contact good. Motor activity appropriate. Speech within normal limits. Affect congruent, mood euthymic. Thoughts linear, logical, no signs of hallucinations or delusions. Client Response/Progress/Benefit: []Pt responded well to session AEB taking notes and contributing to discussion throughout. Pt engaged as group continued discussion on acceptance and the mental health benefits of practicing acceptance. Pt and peers identified what makes acceptance challenging and pt completed a self-reflection exercise on what is hard to accept in pt's life. Pt identified struggling to accept ?potentially leaving my job.? Group identified strategies to increase acceptance and pt shared wanting to focus on reminding herself that ?acceptance is hard but doable.? Pt appeared to benefit from gaining insight and learning strategies to increase acceptance. Pt will continue IOP tx to promote mood stability, increase distress tolerance skills, and improve impulse control. ? Narrative Note: []
--- NOTE | 2023-09-04 10:10 | BH.SGPN.GN ---
Behaviors/Verbalizations/Mental Status: [] Eye contact is good. Motor activity is appropriate. Appearance is casual. Speech is Appropriate. Mood is euthymic. Affect is congruent. Thoughts are linear and logical. No evidence of psychosis. Client Response/Progress/Benefit: [] Pt was an active participant in group discussions. Attentive during psychoeducation on the 4 communication styles (Passive, Passive-Aggressive, Aggressive, and Assertive) and the obstacles to effective communication. Contributed during interactive discussion on the benefits of communicating effectively which included; having one's needs met, helping others get their needs met, building connection with others, decreases stress and uncertainty, improved relationships, increased trust, and increased understanding of others. Worked well in small group in which pt and peers identified the benefits and disadvantages to the different communication styles. Benefited from increased understanding of communication styles and how these can impact effective communication. Will continue in IOP to promote use of healthy coping skills, challenge distortions, and prevent decompensation.
--- NOTE | 2023-09-04 11:15 | BH.SGPN.GN ---
Behaviors/Verbalizations/Mental Status: []Pt alert and oriented, neatly dressed and groomed. Eye contact good. Motor activity appropriate. Speech within normal limits. Affect congruent, mood euthymic. Thoughts linear, logical, no signs of hallucinations or delusions. Client Response/Progress/Benefit: [] Pt responded well to session AEB Pt listening attentively to others and providing input during group discussion on the pay offs and costs of the different communication styles. Pt able to connect how current communication style impacts mental health. Connected with peers comments about importance of using assertive communication. Pt did well being assertive in the group activity and practiced using assertive communication in the role playing scenarios. Pt shared she is continuing to work on being more assertive and avoiding less which has been benefitting pt. ?Pt seemed to benefit from increasing awareness of healthy strategies to improve communication. Will continue IOP tx to promote mood stability, improve daily functioning, and further increase use of healthy coping skills. ?? Narrative Note: []
--- NOTE | 2023-09-06 09:00 | BH.SGPN.GN ---
Behaviors/Verbalizations/Mental Status: [] Eye contact is good. Motor activity is appropriate. Appearance is casual. Speech is Appropriate. Mood is anxious. Affect is congruent. Thoughts are linear and logical. No evidence of psychosis. Reviewed daily check in sheet and no reports of suicidal ideations or intent. Client Response/Progress/Benefit: [] Pt participated at times during the group discussion. Attentive. Daily symptom tracker notes 06/29 for anxiety. Check-in was primarily superficial. Able to identify mental health wins and healthy habits. Going through change in her life as she is leaving current job for better opportunities and pay which has resulted in anxiety. She is engaged in her social life and is going to a second date. Emotion for today is ?stressed?. Benefited from group support, encouragement, and feedback. Will continue in IOP to maintain gains and increase healthy coping. Narrative Note: []
--- NOTE | 2023-09-06 10:10 | BH.SGPN.GN ---
Behaviors/Verbalizations/Mental Status: []Pt alert and oriented, appropriate grooming/appearance. Eye contact good. Motor activity appropriate. Speech within normal limits. Affect congruent, mood euthymic. Thoughts linear, logical, no signs of hallucinations or delusions. Client Response/Progress/Benefit: []Pt was an active participant in group discussions. Attentive during psychoeducation. Contributed during interactive discussions in which peers attempted to define crisis. Pt identified examples of potential crisis. Group also worked together to identify unhealthy responses to crisis which included; isolation, self-harm, substance abuse, avoidance, and distraction. Pt identified personal warning signs as isolating/avoiding others, lack of self-care, and urges to self-harm. Benefited from increased understanding of crisis and awareness of personal responses to crisis. Pt will continue IOP tx to promote use of healthy coping skills, challenge distorted thoughts, and prevent decompensation.
--- NOTE | 2023-09-06 11:10 | BH.SGPN.GN ---
Behaviors/Verbalizations/Mental Status: []Eye contact is good. Motor activity is appropriate. Appearance is casual. Speech is Appropriate. Mood is anxious. Affect is congruent. Thoughts are linear and logical. No evidence of psychosis. Client Response/Progress/Benefit: []Pt was an active participant in group discussions. Attentive during psychoeducation. In small group pt along with peers developed an active plan for their crisis warning signs. Pt identified three crisis warning signs as well as an action plan for each. One crisis warning sign was urges to self-harm. Pt identified coping skills to help with this such as: thought challenging, removing objects from her home, distractions, and visual cues. Benefited from increased awareness of crisis warning signs and by developing crisis intervention strategies. Will continue in IOP to promote mood stability, further increase use of healthy coping skills, and establish aftercare. Narrative Note: []
--- NOTE | 2023-09-07 09:03 | BH.SGPN.GN ---
Behaviors/Verbalizations/Mental Status: Patient was alert and oriented, appropriately dressed and groomed. Eye contact was good, motor activity normal, speech within normal limits. Affect congruent, mood euthymic and positive. Thoughts linear, logical, no signs of hallucinations or delusions. Reviewed Patients symptom tracker and denies suicidal ideation, plan, or intention. Client Response/Progress/Benefit: Patient was engaged and open to the discussion. Pt stated mental health positive as graduating from IOP today. Pt reported additional win as using healthy coping skills when struggling with negative thoughts. Pt stated she has noticed progress with putting goals into action, mood is improved, and not feeling suicidal anymore. Pt reported stressor is last day in IOP because worried about being able to maintain progress made. Pt stated she is looking forward to being in aftercare program. Patient benefited from the discussion by listening to feedback and giving input on her peer?s stressors and mental health wins. Patient will discharge from IOP today.
--- NOTE | 2023-09-07 10:05 | BH.SGPN.GN ---
Behaviors/Verbalizations/Mental Status: [] Eye contact is good. Motor activity is appropriate. Appearance is casual. Speech is Appropriate. Mood is euthymic. Affect is full. Thoughts are linear and logical. No evidence of psychosis. Client Response/Progress/Benefit: [] Pt was an active participant in activity and taking notes during group discussion. Attentive during psychoeducation and interactive discussion on coping skills, why people use unhealthy coping skills, how to replace unhealthy coping skills, and internal vs external coping skills. Group came up with list of negative coping skills including not asking for help, avoidance, isolating, sleeping, shopping, substance use, and several others. Group discussed the effects of how negative coping skills can impact mental health in a negative way. Participated during experiential activity and was able to related the activity to group topic regarding the benefits of developing strong internal and external support system. Benefited from increased understanding of unhealthy coping skills and the need for developing healthy internal and external coping skills. Plan is to discharge successfully from IOP today. Narrative Note: []
--- NOTE | 2023-09-07 11:18 | BH.SGPN.GN ---
Behaviors/Verbalizations/Mental Status: []Pt alert and oriented, casually dressed and groomed. Eye contact good. Motor activity appropriate. Speech within normal limits. Affect congruent, mood anxious and euthymic. Thoughts linear, logical, no signs of hallucinations or delusions. Client Response/Progress/Benefit: []Pt responded well to session, taking notes and contributing when prompted. Group discussed the different categories of coping skills which included distraction, emotional release, grounding, self-love, and thought challenging.? Pt participated in creating a coping skills ?menu? from the five categories of coping skills. Pt's coping skill menu included: calling a support, walking, holding ice, positive self-talk, and T.H.I.N.K tool. Appeared to benefit from increasing repertoire of healthy coping skills. Will d/c from IOP tx and continue in outpatient counseling to maintain gains, promote mood stability, and prevent decompensation. Narrative Note: []
--- NOTE | 2023-09-07 13:52 | BH.DS_ITS ---
Discharge Summary Demographics Discharge Date: 09/07/23
--- NOTE | 2023-09-07 13:52 | BH.DS ---
Discharge Summary Demographics Discharge Date: 09/07/23
== END 2023-09-07 12:32 | disposition home or self-care (01) ==
LOC: BHIOP 06:58
PROVIDERS: PCP Student in an Organized Health Care Education/Training Program; Referring Provider Psychiatry & Neurology Psychiatry; Visit Provider Psychiatry & Neurology Psychiatry
DX: F33.0 Major depressive disorder, recurrent, mild (principal); F42.9 Obsessive-compulsive disorder, unspecified; F41.1 Generalized anxiety disorder; Z79.899 Other long term (current) drug therapy
CPT/HCPCS: S9480; 90832; 90853

== ENCOUNTER 2023-09-20 08:00 | Outpatient (RCR) | payer OTHER, SELFPAY ==
--- NOTE | 2023-09-20 14:00 | BH.COMM ---
Communication Note Communication with Client Communication Note: Patient completed IOP and presents today to start relapse prevention group which meets once weekly (1.5 hours) for 8 weeks. Case discussed with Dr. Nathan with plan to admit with dx of F32.0
--- NOTE | 2023-09-21 14:00 | BH.DS ---
Discharge Summary Demographics Date of Admission:: 09/20/23 Discharge Date: 09/21/23 Presenting Problems at Admission:: Client discharged from [facility] tx and transitioned to [facility] aftercare to maintain gains client made in [facility] and to reinforce healthy coping skills. At admission to [facility] aftercare, client had been had been admitted to [facility] due to suicidal thoughts with plan to overdose. Reporting depressed symptoms for over a month. At the time she was experiencing recent break up, work and life stress. Client has reported progress since being in [facility]. Ongoing difficulties in maintaining consistent positive self-talk and managing unexpected stressors. Discharge Diagnoses:: 1. Major depressive disorder, recurrent, severe without psychosis F33.2 2. OCD 3. OLGA 4. Cluster B traits Reason for Discharge:: Client stated can no longer do aftercare due to getting a new job that requires her to work during aftercare time. Treatment Progress During Treatment & Response: Limited opportunity to see additional progress since client could only attend one aftercare session. Issues Still to be Addressed:: Could benefit from continued work on distress tolerance, reinforcement of healthy coping skills, and improving confidence/self-esteem. Discharge Recommendations/Instructions:: Currently sees Khadijah at [facility] every other week for counseling. Is established with Esdras Tavarez for medication management at the counseling center of [facility]. Discharge Handout
== END 2023-09-23 23:59 ==
LOC: BHOG 08:00
PROVIDERS: PCP Student in an Organized Health Care Education/Training Program; Referring Provider Psychiatry & Neurology Psychiatry; Visit Provider Psychiatry & Neurology Psychiatry
DX: F33.0 Major depressive disorder, recurrent, mild (principal); F41.1 Generalized anxiety disorder; F42.9 Obsessive-compulsive disorder, unspecified
CPT/HCPCS: 90853

== ENCOUNTER 2023-09-24 07:13 | Outpatient (RCR) | payer OTHER, SELFPAY | END 2023-10-08 06:39 | disposition home or self-care (01) | LOC: BHOG 07:13 | PROVIDERS: PCP Student in an Organized Health Care Education/Training Program; Referring Provider Psychiatry & Neurology Psychiatry; Visit Provider Psychiatry & Neurology Psychiatry | DX: Z00.00 Encounter for general adult medical examination without abnormal findings (principal) ==

== ENCOUNTER 2024-09-09 23:13 | Emergency (ER) | payer OTHER, SELFPAY ==
[2024-09-09 23:14] VITALS: BP 141/91; PULSE 103; RESP 18; TEMP 35.9; O2SAT 100; BMI 40.1
--- NOTE | 2024-09-09 23:46 | EX.ED.VIS.PS ---
HPI HPI - Psych History of Present Illness Chief Complaint: Suicidal Narrative Narrative: 23-year-old female past medical history of depression and anxiety, brought in by her mother because of suicidal ideation, and depression. She states that she is feeling helpless and hopeless. There are many factors contributing to her depression. She states that her sister is having a baby and moving to [place], and there are other life stressors that are causing to have increasing suicidal thoughts and ideations. She states she has a plan on how she would do it but will not necessarily disclose it. Reportedly, she wrote a suicide note yesterday. She relates history that 2 years ago she was placed in a psychiatric facility for depression and suicidal thoughts and ideations. No recent physical symptoms. She states she takes Abilify for her depression. She sees a psychiatrist at the counseling center. [facility] Medical History Generalized anxiety disorder OCD (obsessive compulsive disorder) Major depressive disorder, recurrent severe without psychotic features Smoker Asthma ADHD Physical exam, pre-employment Home Medications ?Medication ?Instructions ?Recorded ?Last Taken ?Type loratadine 10 mg tablet (Claritin) 10 mg PO DAILY PRN allergy symptoms 08/08/23 Unknown History sertraline 100 mg tablet (Zoloft) 200 mg (2 x 100 mg) PO DAILY 30 08/29/23 Unknown Rx days #60 tabs aripiprazole 400 mg intramuscular 160 mg IM QMONTH 09/09/24 Unknown History suspension,extended release (Abilify Maintena) hydroxyzine pamoate 25 mg capsule 25 mg PO QHS PRN insomnia 09/09/24 Unknown History (Vistaril) Allergy/AdvReac Type Severity Reaction Status Date / Time dextromethorphan (From Allergy Severe Anaphylaxis Verified 09/09/24 23:14 Delsym) Penicillins Allergy Rash Verified 09/09/24 23:14 Surgical History Hx of tonsillectomy Social History Smoking Status: Current every day smoker tobacco type: e-cigarettes ROS ROS ED ROS Narrative Review of systems positive for suicidal thoughts and ideations. Increasing depression. Feelings of helplessness and hopelessness, denies any physical symptoms currently. EXAM Physical Exam Narrative Exam Narrative: Afebrile. Vital signs noted. Nontoxic-appearing. Cardiovascular examination reveals mild tachycardia. Lungs are clear to auscultation bilaterally. Abdomen soft and nontender with positive bowel sounds. Neurological examination nonfocal and nonlateralizing. Psychiatric examination shows her to be cooperative. She does have suicidal ideations that she reports. No active hallucinations. Const Vital Signs: 09/09/24 23:14 09/10/24 00:14 09/10/24 01:00 Temperature 96.7 F L Temperature Source Temporal Pulse Rate 103 H 99 93 Respiratory Rate 18 16 14 Blood Pressure 141/91 H Blood Pressure Mean 107 Pulse Ox 100 97 100 Oxygen Delivery Method Room Air Room Air Room Air 09/10/24 02:00 09/10/24 02:03 Temperature Temperature Source Pulse Rate 95 97 Respiratory Rate 16 Blood Pressure 132/85 H Blood Pressure Mean 100 Pulse Ox 99 97 Oxygen Delivery Method Room Air MDM MDM MDM Narrative Medical decision making narrative: I do not feel the differential diagnosis is applicable as she is having problems with depression and suicidal ideation. Medical screening labs were obtained. I reviewed her laboratory work and she has a elevated white count of 12.7 which I think is nonspecific, serum is negative. Urine for drugs of abuse is negative. This is with the exception of presumed positive cannabinoids, which she admits to smoking marijuana on occasion. I reviewed the downtime lab report form of her CMP which shows sodium normal at 135 with potassium 3.8, chloride 101 normal anion gap. EtOH negative at less than 10. BUN 15 and creatinine 0.81. At this point in time, I do feel she is medically cleared for evaluation by crisis. In discussion with the crisis counselor, it was thought that she will require placement. She has increasing stressors as the family's lease is up, and she is stressed out about her sister having a baby and moving to [place]. Additionally, was reported that the patient had pills available to her on which she was going to overdose, but her friend talked her out of it. Patient will be placed on 72-hour hold and transferred to a psychiatric facility for further psychiatric evaluation and treatment. Disposition is transferred in stable condition. History & Record Review Discussion w/independent historian: Patient Lab Data Attestation: I reviewed the patient's lab results. Labs: Laboratory Results - last 24 hr 09/10/24 09/10/24 00:14 00:20 WBC 12.7 H RBC 4.32 Hgb 12.1 Hct 37.3 MCV 86.3 MCH 28.0 MCHC 32.4 RDW Std Deviation 41.6 RDW Coeff of Seth 13.3 Plt Count 320 MPV 9.7 Immature Gran % (Auto) 0.400 Neut % (Auto) 69.6 Lymph % (Auto) 20.9 [place] % (Auto) 6.5 Eos % (Auto) 2.4 Baso % (Auto) 0.2 Absolute Neuts (auto) 8.8 H Absolute Lymphs (auto) 2.65 Nucleated RBC % 0 Serum , Qual NEGATIVE Urine Opiates Screen NEGATIVE U Buprenorphine Qual NEGATIVE Ur Oxycodone Screen NEGATIVE Urine Methadone Screen NEGATIVE Urine Fentanyl Screen NEGATIVE Ur Barbiturates Screen NEGATIVE Ur Phencyclidine Scrn NEGATIVE Ur Amphetamines Screen NEGATIVE U Benzodiazepines Scrn NEGATIVE Urine Cocaine Screen NEGATIVE U Cannabinoids Screen PREUMTIVE POSITIVE Management Discussion w/another healthcare provider: Behavioral health (Crisis counselor) Discharge Plan Triage Chief Complaint: Suicidal ED Provider: Armando Rodrigues Dx/Rx/DC Orders Prescriptions: No Action loratadine [Claritin] 10 mg tablet 10 mg PO DAILY PRN (Reason: allergy symptoms) Abilify Maintena 400 mg suspension,extended rel recon 160 mg IM QMONTH Patient Comments: pt unsure of dosage hydroxyzine pamoate [Vistaril] 25 mg capsule 25 mg PO QHS PRN (Reason: insomnia) Rx Instructions: Take 1 to 2 capsules at bedtime for sleep. sertraline [Zoloft] 100 mg tablet 200 mg PO DAILY 30 Days Qty: 60 2RF Rx Instructions: 2tabs (200 mg) po daily Primary Care Provider: Zaki Lewis Referrals: Zaki Lewis DO [Primary Care Provider] - Print Language: Romanian
[2024-09-10 00:14] VITALS: PULSE 99; RESP 16; O2SAT 97
[2024-09-10 00:30] LABS: Absolute Lymphocyte Count 2.65 X10^3/uL (0.83-4.51); Absolute Neutrophil Count 8.8 X10^3/uL (2.0-7.7); Basophil# 0.03 X10^3/uL; Basophil% 0.2 % (0-1); Eosinophils% 2.4 % (0-5); Hematocrit 37.3 % (37-47); Hemoglobin 12.1 g/dL (12.0-15.0); Lymphocyte # 2.65 X10^3/ul (0.83-4.51); Lymphocyte % 20.9 % (19-41); Mean Corp Hgb Conc 32.4 g/dL (32-36); Mean Corpuscular Volume 86.3 fL (81-99); Mean Platelet Vol. 9.7 fl (6.2-12.0); Monocyte# 0.83 X10^3/uL; Monocyte% 6.5 % (0-10); NRBC Flagged by Analyzer 0 % (0-5); Neutrophil # 8.83 X10^3/uL (2.7-7.7); Neutrophil % 69.6 % (47-70); Platelet Count 320 K/mm3 (150-450); RBC Distribution Width CV 13.3 % (11.6-14.6); RBC Distribution Width SD 41.6 fl (35.1-43.9); Red Blood Count 4.32 M/mm3 (4.2-5.4); White Blood Count 12.7 K/mm3 (4.4-11.0)
[2024-09-10 00:46] LABS: Amphetamine Urine NEGATIVE (<1000 ng/mL); Barbiturate Urine NEGATIVE (< 200 ng/mL); Benzodiazepine Urine NEGATIVE (< 200 ng/mL); Buprenorphine Urine NEGATIVE (< 200 ng/mL); Cocaine Urine NEGATIVE (< 300 ng/mL); Fentanyl, Urine NEGATIVE; Methadone Urine NEGATIVE (< 300 ng/mL); Opiates Urine NEGATIVE (< 300 ng/mL); Oxycodone, Urine NEGATIVE (< 100 ng/mL); PCP Urine NEGATIVE (< 25 ng/mL); THC Urine PREUMTIVE POSITIVE (< 50 ng/mL)
[2024-09-10 00:57] LABS: Internal QC Validated? YES +Cl - CLEAR BKGD; Pregnancy, Serum, hCG Quali. NEGATIVE Negative
[2024-09-10 01:00] VITALS: PULSE 93; RESP 14; O2SAT 100
[2024-09-10 02:00] VITALS: PULSE 95; O2SAT 99
[2024-09-10 02:03] VITALS: BP 132/85; PULSE 97; RESP 16; O2SAT 97
[2024-09-10 03:14] LABS: ALB/GLOB Ratio 1.2 RATIO (0.9-2.4); AST(SGOT) 19 U/L (<=31); Alanine Aminotransfer ALT/SGPT 14 U/L (<=34); Albumin, Serum 4.2 g/dL (3.5-5.0); Alcohol, Blood (Medical)-Serum < 10.1 mg/dL (<=10.0); Alkaline Phosphatase 93 U/L (35-104); Anion Gap 11 (5-15); BUN 16 mg/dL (4-19); BUN/Creat Ratio 19.1 RATIO (10-20); Calcium,Total 9.6 mg/dL (7.6-11.0); Carbon Dioxide 23.5 mmol/L (21.0-32.0); Chloride 101 mmol/L (98-108); Creatinine, Serum 0.81 mg/dL (0.70-1.20); EST Glomerular Filtration Rate 106 (>60); Estimated Creatinine Clearance 149.57 ml/min (50-250); Globulin 3.4 g/dL (2.2-4.2); Glucose 98 mg/dL (70-99); Potassium 3.8 mmol/L (3.3-5.1); Protein, Total 7.6 g/dL (5.9-8.4); Sodium Level 136 mmol/L (133-145); Total Bilirubin 0.17 mg/dL (0.00-1.30)
--- NOTE | 2024-09-10 03:32 | ED.RN ---
received call from [facility] @ [phone] to inform us they declined pt due to not accepting pt insurance.
--- NOTE | 2024-09-10 07:02 | ED.RN ---
ACCEPTED AT [facility] ON [address] ESPINOSA
[2024-09-10 08:28] VITALS: BP 130/78; PULSE 90; RESP 16; TEMP 36.6; O2SAT 99
== END 2024-09-10 10:06 ==
PROVIDERS: Emergency Provider Emergency Medicine; PCP Student in an Organized Health Care Education/Training Program; Visit Provider Emergency Medicine
DX: R45.851 Suicidal ideations (principal); F33.2 Major depressive disorder, recurrent severe without psychotic features; F41.1 Generalized anxiety disorder; F90.9 Attention-deficit hyperactivity disorder, unspecified type; F42.9 Obsessive-compulsive disorder, unspecified; F17.290 Nicotine dependence, other tobacco product, uncomplicated; Z88.0 Allergy status to penicillin; Z79.899 Other long term (current) drug therapy
CPT/HCPCS: 80053; 80307; 82077; 84703; 85025; 99285